=== PATIENT | female | born 1965 | race Caucasian/White ===

== ENCOUNTER 2017-03-28 06:03 | Day surgery (SDC) | payer MEDICARE, MEDICAID ==
[~2017-03-28] VITALS: Ht 162.6 cm; Wt 116.3 kg
[~2017-03-28 06:03] MED LIST: FLUO40CA49 PO; LEVO75TA10 PO; PALI546S SQ; ZIPR20CA26 PO; ZIPR40CA27 PO
[2017-03-28 06:15] VITALS: Ht 162.6 cm; Wt 116.3 kg
[2017-03-28 06:22] VITALS: BP 142/87; PULSE 102; RESP 16; TEMP 97.7; O2SAT 95
--- NOTE | 2017-03-28 06:57 | ANESPREOP ---
Anesthesia Record Date and Time DATE: 03/28/17 TIME: 06:56 Pre-Op Diagnosis Screening Proposed Surgical Procedure COLONOSCOPY NPO since: Midnight Allergies: Coded Allergies: No Known Allergies (Unverified , 03/28/17) Ht/Wt/BMI Height: 5 ' 4.00 " Weight: 116.300 kg BMI: 44.0 kg/m2 Vital Signs Date Time Temp Pulse Resp B/P Pulse Ox O2 Delivery O2 Flow Rate FiO2 03/28/17 06:22 97.7 102 16 142/87 95 Room Air Medications Inpatient Medications Current Medications Medications (Trade) Dose Ordered Sig/Aleida Start Time Stop Time Status Last Admin Dose Admin Lactated Ringer's (Lactated Ringers) 1,000 ml @ 30 mls/hr Q24H 03/28/17 07:00 03/28/17 06:40 30 MLS/HR Fluoxetine HCl (Fluoxetine HCl) 40 Mg Capsule, 1 CAP PO HS, (Reported) Last Taken: on 03/26/172099 Levothyroxine Sodium (Levothyroxine Sodium) 75 Mcg Tablet, 1 TAB PO DAILY, (Reported) Last Taken: on 03/28/17 0500 Paliperidone Palmitate (Invega Trinza) 546 Mg/ 1.75 Ml Syringe, 1 UNIT SQ Q3M, (Reported) Last Taken: on 03/21/17 Ziprasidone HCl (Ziprasidone HCl) 40 Mg Capsule, 1 CAP PO DAILY, (Reported) Last Taken: on 03/28/17 0500 Ziprasidone HCl (Ziprasidone HCl) 20 Mg Capsule , 1 CAP PO HS, (Reported) Last Taken: on 03/26/172099 Currently on Beta Tamara: No Medical/Surgical History Anesthesia PMH: Reports: *Diabetes, Arthritis, Obesity (Morbid), Reflux, Thyroid Disease, Denies: Anesthesia Reactions (NO AIRWAY ISSUES), Cancer, Clotting Problems, Glaucoma, Malignant Hyperthermia, Renal Disease, Sleep Apnea Smoking Status: Never smoker Has pt. smoked today?: No Use Chewing Tobacco?: No Second Hand Exposure: No Substance Use Type: does not use Alcohol Intake: none HX of Last Menstrual Period: FEBRUARY 2017 Past Surgical History Orthopedic Surgeries: Abdominal Surgeries: Genitourinary Surgeries: Cardiac Surgeries: Endocrine Surgeries: Reproductive Surgeries: Neurological Surgeries: Ear Surgeries: Nose Surgeries: Throat Surgeries: Other Surgeries: Yes - COLONOSCOPY,ORTHODONIC JAW PROCEDURE Anesthesia Adverse Reactions: FOUND none Family Hx of Anesthesia Advers: none Hx of Motion Sickness: No Pertinent Findings Test 03/28/17 06:20 Urine Test Negative (NEGATIVE) EKG Rhythm: Sinus Rhythm Physical Exam Respiratory: Lungs clear Cardiovascular: FOUND Regular rate, rhythm Airway Assessment Mallampati Score: II TMD: 3 Fingerbreadths Neck Extension: Fair Overall Assessment: May Be Diff Mask Vent., May Be Diff Intubation ASA: 3 Plan Anesthesia Plan: TIVA Discussion Discussed risks/options/alternatives of anesthesia and questions answered. Patient consents. Nursing pain assessment noted. Present: Family Member Attestation Statement Prior to the delivery of any anesthetic medication, I examined the patient, developed the plan, obtained the patient's consent and discussed the risk and benefits of the procedure with the patient/guardian. GREGORY DOMINGUEZ REFRIGERATION OPERATOR March 28, 2017 06:57
[2017-03-28] MEDS ORDERED: LIDOCAINE 1% (10mg/ml) 2ml SDV INJ ONE (07:00)
[2017-03-28] MEDS ORDERED: LR 1,000 ML IV SCH (07:00)
[2017-03-28] MEDS ORDERED: PROPOFOL 500mg 50 ML IV ONE (07:08)
[2017-03-28] MEDS ORDERED: PROPOFOL 200mg 20 ML IV ONE (07:09)
[2017-03-28 08:38] VITALS: BP 94/52; PULSE 63; RESP 18; TEMP 97.3; O2SAT 95
[2017-03-28 08:50] VITALS: BP 104/65; PULSE 72; RESP 22; O2SAT 99
[2017-03-28 08:52] VITALS: O2SAT 96
--- NOTE | 2017-03-28 08:59 | ANESPO ---
Post-Op Note Date 03/28/17 Time: 08:58 Status Pt Participated in Evaluation: Pt participated in person Vital Signs Date Time Temp Pulse Resp B/P Pulse Ox O2 Delivery O2 Flow Rate FiO2 03/28/17 08:38 97.3 63 18 94/52 95 Mask 5.00 Respiratory Function: Airway patent Cardiovascular Function: Regular pulse Mental Status: Alert/oriented Pain Level Intensity: 0 Hydration: Taking po fluids Complications during Recovery None apparent Follow-Up Instructions Instructions Per Surgeon GEE WALKER CRNA March 28, 2017 08:59
[2017-03-28 09:05] VITALS: BP 104/56; PULSE 82; RESP 20; O2SAT 96
[2017-03-28 09:20] VITALS: BP 98/52; PULSE 80; RESP 22; O2SAT 96
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
--- OUTSIDE RECORDS SUMMARY | 2017-03-28 09:40 | XMS REPORT | Continuity of Care Document ---
Author Author [facility] Organization [facility] Address Unknown Phone Unavailable Allergies Medications Problems Procedures Results Encounters ACCT No. Visit Date/Time Discharge Status Pt. Type Provider Facility Loc./Unit Complaint [id number] 01/14/2014 13:33:00 01/14/2014 23 :59:59 CLS Outpatient
--- OUTSIDE RECORDS SUMMARY | 2017-03-28 09:40 | XMS REPORT | Referral Summary ---
Author Author [facility] Organization [facility] Address Unknown Phone Unavailable Care Team Providers Care Customer Relationship Specialist Name Role Phone Chandra Waters Primary Care Physician [phone] Encounter VC Date(s): 04/22/15 - 04/22/15 [facility], [address] [place] [address]- Discharge Diagnosis: Sinusitis Discharge Diagnosis: Allergic rhinitis Discharge Disposition: 01-Home or Self Care Attending Physician: Carmen Dowd APRN Admitting Physician: Carmen Dowd APRN Vital Signs Most recent to 1 oldest [Reference Range]: Temperature Tympanic 36.7 degC [36.6-38.1 degC] (04/22/15 9:58 AM) Peripheral Pulse 78 bpm Rate [60-100 bpm] (04/22/15 9:58 AM) Respiratory Rate 17 br/min [14-20 br/min] (04/22/15 9:58 AM) Blood Pressure 118/80 mmHg [90-140/60-90 mmHg] (04/22/15 9:58 AM) Problem List Condition Effective Dates Status Health [...] EVERY DAY Start Date: 12/14/14 Status: Ordered Synthroid 50 mcg (0.05 mg) oral tablet 50 mcg 1 tabs, Oral, Daily, # 30 tabs, 2 Refill(s), Pharmacy: [facility] [place], 1 tabs Oral Daily Start Date: 10/10/15 Status: Ordered Results No data available for this section Immunizations Vaccine Date Refusal Reason tetanus/diphth/pertuss (Tdap) adult/adol 05/24/08 influenza virus vaccine, inactivated 10/03/15 influenza virus vaccine, inactivated 10/28/14 Procedures Procedure Date Related Diagnosis Body Site Colonoscopies Surgery-gall bladder Social History Social History Type Response Smoking Status Never smoker Assessment and Plan Extracted from: Title: Ambulatory Patient Education Author: Carmen Dowd APRN Date : 04/22/15 Allergy Allergic Rhinitis Allergic rhinitis is when the mucous membranes in the nose respond to allergens. Allergens are particles in the air that cause your body to have an allergic reaction. This causes you to release allergic antibodies. Through a chain of events, these eventually cause you to release histamine into the blood stream. Although meant to protect the body, it is this release of histamine that causes your discomfort, such as frequent sneezing, congestion, and an itchy , runny nose. CAUSES Seasonal allergic rhinitis (hay fever ) is caused by pollen allergens that may come from grasses, trees, and weeds. Year-round allergic rhinitis (perennial allergic rhinitis ) is caused by allergens such as house dust mites, pet dander , and mold spores. SYMPTOMS Nasal stuffiness (congestion ). Itchy, runny nose with sneezing and tearing of the eyes. DIAGNOSIS Your health care provider can help you determine the allergen or allergens that trigger your symptoms. If you and your health care provider are unable to determine the allergen, skin or blood testing may be used. TREATMENT Allergic Rhinitis does not have a cure, but it can be controlled by: Medicines and allergy shots (immunotherapy ). Avoiding the allergen. Hay fever may often be treated with antihistamines in pill or nasal spray forms. Antihistamines block the effects of histamine. There are over-the- counter medicines that may help with nasal congestion and swelling around the eyes. Check with your health care provider before taking or giving this medicine. If avoiding the allergen or the medicine prescribed do not work, there are many new medicines your health care provider can prescribe. Stronger medicine may be used if initial measures are ineffective. Desensitizing injections can be used if medicine and avoidance does not work. Desensitization is when a patient is given ongoing shots until the body becomes less sensitive to the allergen. Make sure you follow up with your health care provider if problems continue. HOME CARE INSTRUCTIONS It is not possible to completely avoid allergens, but you can reduce your symptoms by taking steps to limit your exposure to them. It helps to know exactly what you are allergic to so that you can avoid your specific triggers. SEEK MEDICAL CARE IF: You have a fever. You develop a cough that does not stop easily (persistent ). You have shortness of breath. You start wheezing. Symptoms interfere with normal daily activities. Document Released: 08/06/2002 Document Revised: 2014 Document Reviewed: [facility] Patient Information 2014 [employer] [facility]. No follow up information was provided. Extracted from: Title: Office Visit Note Author: Carmen Dowd APRN Date: 04/22/15 Assessment/Plan 1.Sinusitis amox. mucinex dm as needed, push fluids, nasal rinses. 2.Allergic rhinitis zyrtec daily as needed. Orders: amoxicillin, 500 mg 1 tabs, Oral, TID, X 10 days, # 30 tabs, 0 Refill( s), Pharmacy: [id number], 1 tabs Oral TID,x10 days
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
--- OUTSIDE RECORDS SUMMARY | 2017-03-28 09:40 | XMS REPORT | Referral Summary ---
Author Author [facility] Organization [facility] [place] Address Unknown Phone Unavailable Care Team Providers Care Flight Engineer Name Role Phone Chandra Waters Primary Care Physician [phone] Encounter VC Date(s): 11/15/15 - 11/15/15 [facility], [address] [place] [id number] Discharge Disposition: 01-Home or Self Care Attending Physician: Nikolas Avila APRN Admitting Physician: Nikolas Avila APRN Vital Signs Most recent to 1 oldest [Reference Range]: Peripheral Pulse 76 bpm Rate [60-100 bpm] (11/15/15 2:26 PM) Respiratory Rate 18 br/min [14-20 br/min] (11/15/15 2:26 PM) Blood Pressure 130/84 mmHg [90-140/60-90 mmHg] (11/15/15 2:26 PM) SpO2 98 % (11/15/15 2:26 PM) Problem List Condition Effective Dates Status [...] 0 Refill(s) Start Date: 01/24/15 Status: Ordered ranitidine 150 mg oral tablet 150 mg 1 tabs, Oral, BID, Come in for lab work 4-6 weeks from now., # 60 tabs, 0 Refill(s), Pharmacy: [facility], 1 tabs Oral BID,Instr :Come in for lab work 4-6 weeks from now. Start Date: 11/15/15 Status: Ordered Synthroid 50 mcg (0.05 mg) oral tablet 50 mcg 1 tabs, Oral, Daily, # 30 tabs, 2 Refill(s), Pharmacy: [facility], 1 tabs Oral Daily Start Date: 10/10/15 Status: Ordered Results No data available for this section Immunizations Vaccine Date Refusal Reason tetanus/diphth/pertuss (Tdap) adult/adol 05/24/08 influenza virus vaccine, inactivated 10/03/15 influenza virus vaccine, inactivated 10/28/14 Procedures Procedure Date Related Diagnosis Body Site Colonoscopies Surgery-gall bladder Social History Social History Type Response Smoking Status Never smoker Assessment and Plan No data available for this section
--- OUTSIDE RECORDS SUMMARY | 2017-03-28 09:40 | XMS REPORT | Continuity of Care Document ---
Author Author Jayshree Becker MD [facility] Ambulatory Address [address] [place] [address] [place] [address] Phone Care Team Providers Care Engraver Seals Name Role Phone Jayshree Becker PP Unavailable Payers Payer name Insurance type Covered constitution party ID Authorization(s) Unknown Problems Condition Effective Dates (start - stop) Clinical Status Gynecological Examination - *Chronic Bacterial vaginosis - *Acute Abnormal bleeding in menstrual cycle - *Acute Cerumen impaction - *Chronic Vaginal bleeding, abnormal - *Acute Verrucous keratosis - *Chronic Postmenopausal bleeding - Mild Unspecified symptom associated with female genital organs - Mild Postmenopausal bleeding - *Resolved Chronic endometritis - Irregular menstrual cycle - *Stable Status post endometrial ablation - *Fair Control Excessive or frequent menstruation - *Stable Family History Family Member Diagnosis Age At Onset Status Father (Unknown) Cancer - skin Yes Social History Social History Element Description Quantity Unknown Allergies, Adverse Reactions, Alerts Substance Reaction Severity Status Unknown Medications Medication Instructions Dosage Effective Dates (start - stop) Status Risperdal 2 mg tablet take 1 tablet (2MG) by oral route every day 2 MG Jan - Active Geodon 20 mg capsule take 1 capsule (20MG) by oral route 2 times every day with food 20 MG - Active fluoxetine 20 mg capsule take 2 capsule (40MG) by oral route every day in the morning 40 MG - Active Protonix 40 mg tablet,delayed release Take 1 tablet by mouth every day. - Active INVEGA SUSTENNA (unknown strength) inject 0.25 milliliter by intramuscular route every month - Active Immunizations Vaccine Date Status Comments Tdap (Adacel ) completed - Completed reason: source unspecified Results Test Name Date and Time Measure Units Reference Range Abnormal Flag Comments Panel Description: Hanging Drop Site. 14:00:00 Cervical WBC-M 14:00:00 0-2 /hpf 0-5 Squamous Epithelial Cells 14:00:00 10-20 /lpf Clue Cells 14:00:00 <10 %/epis None seen-20 Yeast 14:00:00 None seen /hpf None seen Trichomonas 14:00:00 None seen /hpf None seen Bacteria 14:00:00 1+ Panel Description: Chlamydia & GC by Amplified DNA-[facility] Chlam/ GC Nucleic Acid Screen 14:00:00 Source: Cervix Collected: 01/14/14 14:00 Site: Received : 01/14/14 17:00 Order#: [id number] is the Site? : CXVChlamydia trachomatis, Amplified NA FINAL 01/15/14 11:11 Not detectedNeisseria gonorrhoeae, Amplified NA FINAL 01/15/14 11:11 Not detectedKEY FOR RESULTS: * - NEW RESULT - RESULT WAS MODIFIED AFTER FINAL STATUS SETPerform at [facility] Reference Lab [address] [facility] [address] Surgical Device Sales Representative Fredo Mireles MD Vital Signs Date / Time: Height Weight Pulse Rate Blood Pressure Temperature /13:33:00 63.50 in 256.20 lbs 78 /min 124/78 mm[Hg] 97.9 F Procedures Procedure Date Unknown Encounters Encounter Location Date Patient Visit [facility] Patient Visit [facility] Patient Visit [facility] Patient Visit [facility] Patient Visit [facility] Patient Visit [facility] Derm Patient Visit [facility] Patient Visit [facility] Patient Visit [facility] Patient Visit [facility] Patient Visit [facility] Advance Directives Directive Effective Date Unknown
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
--- NOTE | 2017-03-28 17:45 | OPNOTEF ---
DATE OF SERVICE 03/28/2017 SURGEON Sven Albright MD PREOPERATIVE DIAGNOSIS Colorectal cancer surveillance POSTOPERATIVE DIAGNOSIS Multiple colonic polyps located at 30 cm, 40 cm x 3, 50 cm, 45 cm x 2, 70 cm, 75 cm, 80 cm x 3, 100 cm, hepatic flexure x 3, and cecum. PROCEDURE Colonoscopy with multiple polypectomies via cold biopsy technique and snare polypectomy technique. ANESTHESIA TIVA BRIEF HISTORY/INDICATIONS Mrs. Mcgovern is a 51-year-old female who presents today to [facility] to undergo colonoscopy to serve as a portion of her overall colorectal cancer surveillance. FINDINGS Upon colonoscopy there was no evidence for angiodysplastic lesions, diverticula or blanche malignancies. The patient was found to have numerous polyps throughout the entire colon which will be described below. Each polyp was able to be removed in its entirety endoscopically. DESCRIPTION OF PROCEDURE After informed consent was obtained the patient was brought to the endoscopy suite and placed on the table in left lateral decubitus position. Formal timeout was then completed. Next, a digital rectal exam was performed. Normal sphincter tone. No rectal masses were appreciated. An Olympus colonoscope was inserted into the anus. The scope was then advanced under direct visualization of the lumen. There were multiple times that several polyps were identified and snared and suctioned against the colonoscope and the scope was withdrawn out through the anal verge and then readvanced. For simplicity purposes it will be described as if the scope was advanced and slowly withdrawn a single time. In actuality, the scope was likely inserted and removed and reinserted perhaps 10 times or more. The scope was continued to be advanced under direct visualization of the lumen at all times until the cecum was ascertained. Within the cecum the patient was found to have a polyp on the order of about 5-6 mm in diameter which was removed in its entirety via cold biopsy technique. The scope was drawn back to the hepatic flexure where the patient was found to have three polyps that were removed in their entirety via cold biopsy technique and snare polypectomy technique. These polyps ranged on the order of about 5 mm up to 1 cm in dimension. The scope was then withdrawn back to 100 cm where a pedunculated polyp that was on the order of about 1.5 cm was removed in its entirety via snare polypectomy technique. The scope was drawn back to 70 cm from the anal verge where three different/synchronous polyps were identified that ranged on the order of about 5 mm up to 1.5 cm once again. Each polyp was removed in its entirety either via cold biopsy technique or snare polypectomy technique. The scope was continued to be withdrawn back to 75 cm where a larger polyp on the order of about 1.5 cm, which was pedunculated in nature, was also removed in its entirety via snare polypectomy technique. At 70 cm from the anal verge the patient was also found to have a polyp on the order of about 2 cm in diameter which was pedunculated in nature and removed in its entirety via snare polypectomy technique. At 45 cm from the anal verge the patient was found to have two diminutive-appearing colonic polyps that were on the order of about 5-6 mm in diameter and removed in their entirety via cold biopsy technique. At 50 cm from the anal verge the patient was also found to have a polyp that was removed in its entirety via cold biopsy technique which was on the order of 5-6 mm in diameter. At 40 cm from the anal verge the patient was found to have three polyps that also ranged on the order of about 1.5 cm in diameter down to 5 mm. These polyps were also all removed in their entirety via cold biopsy technique or snare polypectomy technique. Lastly, a polyp that was also pedunculated and on a stalk was identified at 30 cm from the anal verge that was on the order of about 1.5 cm in diameter which was removed via snare polypectomy technique. A total of 10 separate formalin containers were submitted. The scope was withdrawn until it was back in the rectal vault. J-maneuver was performed. No worrisome perianal pathology was noted. Scope was allowed to straighten and was withdrawn through the anal verge. Patient tolerated the procedure without difficulty and was sent back to the preop area in stable condition. Await biopsy results from today's multiple polypectomies. The patient will likely need a repeat colonoscopy at a one-year interval given the number of colon polyps that were discovered today which I believe will be mostly adenomatous in nature upon final pathology. DIANE
== END 2017-03-28 09:26 | disposition home or self-care (01) ==
LOC: SCU 06:03
PROVIDERS: ATTEND Surgery
DX: Z12.11 Encounter for screening for malignant neoplasm of colon (principal); D12.3 Benign neoplasm of transverse colon; D12.0 Benign neoplasm of cecum; D12.6 Benign neoplasm of colon, unspecified; K21.9 Gastro-esophageal reflux disease without esophagitis; E03.9 Hypothyroidism, unspecified; J30.9 Allergic rhinitis, unspecified; Z79.899 Other long term (current) drug therapy
CPT/HCPCS: 45380; 45385; 81025; 82948; J2704; J7120; 88305

== ENCOUNTER 2018-07-12 07:20 | Inpatient (IN) ==
[2018-07-12] MEDS ORDERED: ALBUTEROL/IPRATROPIUM 2.5mg-0.5mg/3ml NEB AEROSOL ONE (07:28)
[2018-07-12] MEDS ORDERED: NS 1,000 ML IV ONE (07:37)
[2018-07-12] MEDS ORDERED: CEFTRIAXONE 1 G INJECTION IM SCH (07:45)
--- OUTSIDE RECORDS SUMMARY | 2018-07-12 07:50 | External Medical Summary | Continuity of Care Document ---
:1965 Author Organization [facility] Allergies Active Description Code Type Severity Reaction Onset Reported/ Identified Relationship Clinical to Patient Status Yes No Known NKMA N/A N/A 01/24/2015 Medication Allergies Yes No Known Aller Unknown N/A 03/28/2017 Allergies gy Yes No Known No Aller N/A N/A 03/28/2017 Allergies Known gy Aller gies Medications Medication Packaging Start Stop Route Dosage Sig Date Date 2 caps Oral 40 mg FLUoxetine(FLUoxet 5 40 mg=2 ine 20 mg oral caps, capsule) Oral, Daily, in the morning, 0 Refill(s) 1 caps Oral 20 mg ziprasidone(Geodon 5 See 20 mg oral Instructio capsule) ns, Take 20mg qAM and 40mg qPM, 0 Refill(s) 1 tabs 10/03/20 Oral 2 mg risperiDONE(Risper 5 15 1 tabs, MARLENA 2 mg oral Oral, tablet) Daily, 60 tabs 1 tabs 05/02/20 Oral 500 mg amoxicillin(amoxic 5 15 500 mg=1 illin 500 mg oral tabs, tablet) Oral, TID, for 10 days, 30 tabs, 0 Refill(s) 0.5 mL 10/03/20 IntraMuscular influenza virus 5 15 0.5 mL, vaccine, IntraMuscu inactivated(influe lar, Once nza virus vaccine, inactivated) 1 tabs 10/15/20 Oral 150 mg ranitidine(ranitid 5 16 150 mg=1 ine 150 mg oral tabs, tablet) Oral, BID, Come in for lab work 4-6 weeks from now., 60 tabs, 0 Refill(s) 1 tabs 03/25/20 Oral amoxicillin-clavul 6 16 1 tabs, anate(Augmentin Oral, 875 mg-125 mg oral q12hr, for tablet) 10 days, 20 tabs, 0 Refill(s) 3 mL 10/16/20 NEB levalbuterol(leval 6 16 3 mL, buterol 1.25 mg/3 NEB, TID mL inhalation solution) 1 puffs 03/04/20 Inhalation albuterol(albutero 6 17 1 puffs, l [facility]FC free 90 Inhalation mcg/inh inhalation , QID, aerosol) PRN: as needed for wheezing, 18 g, 0 Refill(s) 1 tabs 06/25/20 Oral 75 mcg levothyroxine(levo 6 17 75 mcg=1 thyroxine 75 mcg tabs, (0.075 mg) oral Oral, tablet) Daily, 30 tabs, 3 Refill(s) Invega SQ 546 Trinza 7 mg/1.75 ml Q3M PO 40 mg Ziprasidone HCl 7 DAILY PO 20 mg Ziprasidone HCl 7 HS PO 75 mcg Levothyroxine 7 DAILY Sodium PO 40 mg Fluoxetine HCl 7 HS levothyroxine(levo 7 See thyroxine 75 mcg Instructio (0.075 mg) oral ns, TAKE 1 tablet) TABLET BY MOUTH DAILY, 30 tabs Problems Date Dx Attending Type Code Diagnosis Diagnosed By Coded 10/15/2016 Zurdo Harris Final J06.9 Acute upper respiratory E infection, unspecified 10/24/2016 Quyen Waters Final E03.9 Hypothyroidism, unspecified 10/24/2016 Quyen Waters Final E78.1 Pure hyperglyceridemia 10/24/2016 Quyen Waters Final H61.23 Impacted cerumen, bilateral 02/25/2017 Quyen Waters Final E03.9 Hypothyroidism, unspecified 02/25/2017 Quyen Waters Final Z00.00 Encounter for general adult medical examination without abnormal findings 03/28/2017 NIRALI VILLEGAS, 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 03/28/2017 NIRALI VILLEGAS, D12.3 BENIGN NEOPLASM OF KATHARINA Andres [employer] [facility] S TRANSVERSE COLON 03/28/2017 NIRAIL VILLEGAS, D12.6 BENIGN NEOPLASM OF KATHARINA Andres [employer] ([employer] S COLON, UNSPECIFIED 03/28/2017 NIRALI VILLEGAS, E03.9 HYPOTHYROIDISM, KATHARINA Andres FACS CWS UNSPECIFIED 03/28/2017 NIRALI VILLEGAS, J30.9 ALLERGIC RHINITIS, KATHARINA Andres FACS CWS UNSPECIFIED 03/28/2017 NIRALI VILLEGAS, K21.9 GASTRO-ESOPHAGEAL KATHARINA Andres FACS [facility] REFLUX DISEASE WITHOUT ESOPHAGITIS 03/28/2017 NIRALI VILLEGAS, Z12.11 ENCOUNTER FOR SCREENING KATHARINA Andres FACS [facility] FOR MALIGNANT NEOPLASM OF COLON 03/28/2017 NIRALI VILLEGAS, 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) DRUG THERAPY 06/06/2018 NIARLI VILLEGAS, Z86.010 Personal history of NIRALI VILLEGAS KATHARINA Andres FACS [facility] colonic polyps KATHARINA DONALDSONS Procedures Code Description [place] [address] Pressurized or 10/15/2016 nonpressurized inhalation treatment for acute airway obstruction for therapeutic purposes and/or for diagnostic purposes such as sputum induction with an aerosol generator, [place] [address] Office or 10/15/2016 other outpatient visit for the evaluation and management of an established patient, which requires at least 2 of these 3 howard components: A detailed history; A detailed examination; Medical d 57315 Office or 10/24/2016 other outpatient visit for the evaluation and management of an established patient, which requires at least 2 of these 3 howard components: A detailed history; A detailed examination; Medical d 30345 Periodic 02/25/2017 comprehensive preventive medicine reevaluation and management of an individual including an age and gender appropriate history, examination, counseling/anticipatory guidance/risk factor reduc 31300 Screening 06/28/2017 digital breast tomosynthesis, bilateral (List separately in addition to code for primary procedure) 58005 Screening 06/28/2017 mammography, bilateral (2-view study of each breas [id number] Diagnostic 08/02/2017 mammography, including computer-aided detection ( Results Test Result Range L200.0020 - 07/20/16 08:58 ICTERUS < 2 0-7 HEMOLYSIS < 15 0-25 L200.6775 - 07/20/16 08:58 HEMOGLOBIN A1C 6.4 % 6.1-7.9 L100.0050 - 07/20/16 08:58 WBC - WHITE BLOOD COUNT 8.2 T/MM3 4.5-11.0 RED BLOOD COUNT 5.55 M/MM3 4.00-5.20 HGB - HEMOGLOBIN 12.0 GM/DL 12-16 HCT - HEMATOCRIT 37.2 % 36-46 MEAN CORPUSCULAR VOLUME 67.0 UM3 80-100 MEAN CORPUSCULAR HGB 21.6 UUG 26-34 MEAN CORPUSCULAR HGB CONC(MCHC 32.3 GM/DL 31-37 RDW STANDARD DEVIATION 41.0 FL 36.9-50.2 PLT - PLATELET COUNT 285 T/MM3 130-400 MEAN PLATELET VOLUME 11.4 UM3 9.4-12.4 L100.0105 - 07/20/16 08:58 NEUTROPHILS % (MANUAL) 65.0 % 33-66 LYMPHOCYTES % (MANUAL) 29.0 % 23-45 MONOCYTES % (MANUAL) 3.0 % 0-9.0 EOSINOPHILS % (MANUAL) 3.0 % 0-4 NEUTROPHILS # (MANUAL) 5.3 T/MM3 1.8-7.7 LYMPHOCYTES # (MANUAL) 2.4 T/MM3 1-4.8 MONOCYTES # (MANUAL) 0.2 T/MM3 0-0.8 EOSINOPHILS # (MANUAL) 0.2 T/MM3 0-0.5 RBC MORPHOLOGY NORMAL L200.3850 - 07/20/16 08:58 THYROID STIM HORMONE-TSH 3.43 MIU/L 0.47-4.68 L200.3600 - 07/20/16 08:58 FREE T4 (FREE THYROXINE) 1.15 NG/DL 0.78-2.19 L200.1350 - 07/20/16 08:58 CHOLESTEROL 191 MG/DL 132-199 TRIGLYCERIDES 235 MG/DL 35-135 HDL CHOLESTEROL, DIRECT 48 MG/DL 40-60 LDL CHOLESTEROL,CALCULATED 96.0 66-159 VLDL CHOLESTEROL 47.0 MG/DL 0-28 RISK FACTOR 4.0 RATIO 0-4.0 L600.2900 - 03/28/17 06:20 PREG QUAL, URINE TEST NEGATIVE NEGATIVE L900.0530 - 03/28/17 06:38 GLUCOMETER 103 mg/dL 65-110 Encounters ACCT No. Visit Discharge Status Pt. Type Provider Facility Loc./Unit Complaint Date/Time [id number] 01/14/2014 01/14/2014 CLS Outpatien 13:33:00 23:59:59 t [id number] 08/02/2017 08/02/2017 DIS Outpatien Evelin, [facility] abnormal 14 12:49:00 23:59:00 t Quyen [facility]andra [facility] [id number] 06/28/2017 06/28/2017 DIS Outpatien Evelin, [facility] SCREENING 14 14:27:00 23:59:00 t Quyen [facility]andra [facility] [id number] 02/25/2017 02/25/2017 DIS Outpatien Evelin, [facility] physical 05 10:06:00 23:59:00 t Quyen [facility]andra [facility] [id number] 10/24/2016 10/24/2016 DIS Outpatien Evelin, [facility] TCPA, 19 13:49:00 23:59:00 t Quyen Huerta Discuss Clinic labwork [id number] 10/15/2016 10/15/2016 DIS Outpatien Komarek, [facility] COUGH AND 91 12:58:00 23:59:00 t Zurdo Huerta RUNNY NOSE Clinic [id number] 03/15/2016 03/15/2016 DIS Outpatien Avila, [facility] sinus 25 10:59:00 23:59:00 t Nikolas Huerta infection Clinic sx last 4 days [id number] 11/15/2015 11/15/2015 CLS Outpatien Avila, [facility] ACID 09 14:17:00 23:59:59 t Nikolas Huerta REFLUX Clinic [id number] 10/03/2015 10/03/2015 DIS Outpatien Evelin, [facility] DISCUSS 33 15:28:00 23:59:00 hermila Huerta LAB Clinic RESULTS [id number] 06/26/2017 Document 1723 05:17:23 Registrat ion [id number] 10/25/2016 Document 1635 05:16:35 Registrat ion [id number] 10/16/2016 Document 1623 05:16:23 Registrat ion [id number] 03/16/2016 Document 1712 05:17:12 Registrat ion [id number] 11/16/2015 Document 1643 05:16:43 Registrat ion [id number] 10/04/2015 Document 1747 05:17:47 Registrat ion [id number] 09/14/2015 Document 3011 12:30:11 Registrat ion [id number] 09/14/2015 Document 2847 11:28:47 Registrat ion [id number] 06/06/2018 06/06/2018 NEIL Galan CSCOPE , 80 09:17:00 23:59:00 KATHARINA cleaning MD Surgical GERD SOB FACS [facility] [id number] 03/28/2017 03/28/2017 NEIL Galan SCU 19 06:03:00 09:26:00 KATHARINA cleaning MD Medical FACS [facility] [id number] 07/20/2016 07/20/2016 REINALDO LANGFORD MD, [facility] 04 08:48:00 23:59:59 t [facility] [id number] 06/20/2018 Document 98 10:46:00 Registrat ion
[2018-07-12] MEDS ORDERED: CEFTRIAXONE 1 GM IV ONE (08:00)
--- NOTE | 2018-07-12 08:29 | Emergency Department Report ---
SOB HPI - General Chief Complaint: Shortness of Breath/Dyspnea Stated Complaint: SOA Time Seen by Provider: 07/12/18 07:27 Source: patient, EMS Mode of arrival: EMS - History of Present Illness 52 YO WF who presents to ER for shortness of breath. EMS reports initial O2 sats on room air in 70's. They provided breathing treatments with albuterol x 2. EMS also administered Solu-Medrol 125 mg IV. Patient remains very dyspneic with room air O2 sats 84-86% Patient recently ill with upper respiratory infection. She denies history of COPD, asthma. Complaint: shortness of breath, cough Onset (ago): day(s) (3) Context: recent illness Severity: severe (this morning) Associated symptoms: cough Treatment prior to arrival: bronchodilator (albuterol treatments x 2 (EMS)), other (solu-medrol IV (EMS)) - Related Data Home oxygen amount: none Home Medications Medication Instructions Recorded Confirmed Levothyroxine Sodium 1 tab PO DAILY #30 03/27/17 07/12/18 Fluoxetine HCl [Prozac] 40 cap PO HS 07/12/18 07/12/18 Paliperidone Palmitate [Invega 1 syringe Q90D 07/12/18 07/12/18 Trinza] Ziprasidone HCl [Geodon] 20 mg PO DAILY 07/12/18 07/12/18 Ziprasidone HCl [Geodon] 40 mg PO HS 07/12/18 07/12/18 Allergies Allergy/AdvReac Type Severity Reaction Status Date / Time No Known Allergies Allergy Unverified 03/28/17 06:23 Review of Systems Constitutional: Reports: fever, chills Eyes: Denies: eye discharge, vision change ENT: Denies: ear pain, throat pain, dental pain Cardiovascular: Reports: dyspnea on exertion. Denies: chest pain Respiratory: Reports: cough, dyspnea, wheezes Gastrointestinal: Reports: nausea. Denies: abdominal pain, vomiting, diarrhea Genitourinary: Denies: urgency, dysuria, frequency, hematuria Psychiatric: Reports: anxiety Allergic/Immunologic: Denies: urticaria, itchy eyes PFSH Patient Stated Medical History Gastroesophageal Reflux Yes Disease Other Musculoskeletal Yes: ARTHRITIS [facility] Medical History (Last Updated 07/12/18 @ 11:24 by Colleen Roberts MD) Schizoaffective disorder (Chronic Medical) Anxiety (Chronic Medical) History of adenomatous polyp of colon (Chronic Medical) Thyroid disease (Chronic Medical) GERD (gastroesophageal reflux disease) (Chronic Medical) Arthritis (Chronic Medical) Surgical History: Cholecystectomy. -colonoscopy 10 adenomatous polyps 03/28/2017 Family History: Family History (Last Updated 04/29/18 @ 12:03 by Antoinette Caldera [facility]) Father Diabetes Brother Diabetes - Social History Smoking status: Never smoker Alcohol intake frequency: does not drink Current residence: Apartment/Private Home Physical Exam - Limitations Limitations: no limitations - General General appearance: alert, in distress - Normal Exams: Head:: Normocephalic without trauma Eyes:: Pupils are PERRLA w/ EOMI ENMT:: No facial trauma Cardiovascular:: Regular rate and rhythm, without murmur or gallop, Pulses 2+ all extremities, capillary refill, <2 seconds all extremities Abdomen:: Bowel sounds positive, soft, non-tender, non-distended Neurological:: Patient is alert, and oriented, cranial nerves, motor/sensory/ cerebellar, exams w/o gross deficits, to observation - Respiratory Respiratory exam: Present: wheezes, accessory muscle use, prolonged expiratory phase, crackles (bilaterally in bases) - Expanded Respiratory Exam Location: Left: wheezes, rhonchi, decreased breath sounds, Right: wheezes, decreased breath sounds, Upper: wheezes, Lower: wheezes, rhonchi, decreased breath sounds Course Course Narrative: Upon arrival, RT notified and duoneb treatment initiated. Room air O2 sat 78%. Breathing labored and tachypneic. BiPAP ordered. 0821: Lab called to notify of Troponin 0.15, BNP 10,200, BUN 56 0830: Patient tolerating BiPAP well. O2 sat 98% WITH FiO2 50%. 0904: Lab called ED notified of mycoplasma positive (cold agglutinins) - Consultations Consultation #1: [id number]: HOSPITALIST PAGED. [id number]: DR. REYES RESPONDS TO PAGE BUT DR. ROBERTS ACCEPTING NEW ER ADMISSIONS. DR. REYES WILL NOTIFY DR. ROBERTS [phone]: DR. ROBERTS CALLS ER. DISCUSSED CASE. WILL ADMIT PATIENT TO CCU. 0904: LAB CONTACT ED PHYSICIAN TO NOTIFY POSITIVE MYCOPLASMA Vital Signs Temperature 96.7 F L 07/12/18 07:20 Pulse Rate 96 07/12/18 07:20 Respiratory Rate 46 H 07/12/18 07:20 Blood Pressure 139/73 07/12/18 07:20 Pulse Oximetry 67 L 07/12/18 07:20 Temperature 98.1 F 07/12/18 09:46 Pulse Rate 94 07/12/18 12:00 Respiratory Rate 32 H 07/12/18 15:30 Blood Pressure 142/74 H 07/12/18 09:00 Pulse Oximetry 94 07/12/18 15:30 Shortness of Breath/Dyspnea - Differential Diagnosis Likely: congestive heart failure, community acquired pneumonia, asthma with exacerbation - Lab Data Attestation: I reviewed the patient's lab results. RESPIRATORY PANEL POSITIVE FOR MYCOPLASMA Result diagrams: 07/12/18 07:47 07/12/18 07:47 Lab Results 07/12/18 07/12/18 07/12/18 Range/Units 07:33 07:37 07:42 WBC (4.5-11.0) T/MM3 RBC (4.00-5.20) M/MM3 Hgb (12-16) GM/DL Hct (36-46) % MCV (80-100) UM3 MCH (26-34) UUG MCHC (31-37) GM/DL RDW Std Deviation (36.9-50.2) FL Plt Count (130-400) T/MM3 MPV (9.4-12.4) UM3 Immature Gran % (Auto) Neut % (Auto) Lymph % (Auto) [place] % (Auto) Eos % (Auto) Baso % (Auto) Neut # (Auto) Lymph # (Auto) [place] # (Auto) Eos # (Auto) Baso # (Auto) Abs Immat Gran (auto) Neutrophils % (Manual) (33-66) % Band Neutrophils % (0-6) % Lymphocytes % (Manual) (23-45) % Metamyelocytes % (0-0) % Myelocytes % (0-0) % Neutrophils # (Manual) (1.8-7.7) T/MM3 Band Neutrophils # T/MM3 Lymphocytes # (Manual) (1-4.8) T/MM3 Metamyelocytes # T/MM3 Myelocytes # T/MM3 Nucleated RBCs Polychromasia Anisocytosis Target Cells RBC Morph Comment INR 1.39 H (0.92-1.18) APTT 24.0 (24-36) SEC Turbidity (0-20) Sodium (136-146) MEQ/L Potassium (3.6-5) MEQ/L Chloride (98-107) MEQ/L Carbon Dioxide (22-30) MEQ/L Anion Gap (5-15) meq/L BUN (7-17) MG/DL Creatinine (0.7-1.2) mg/dL Estimated Creat Clear (>50) mL/min GFR Calculation (>60) mL/min BUN/Creatinine Ratio (6-26) RATIO Glucose (65-110) MG/DL Calculated Osmolality (261-280) MOSM/KG Calcium (8.4-10.2) MG/DL Total Bilirubin (0.20-1.30) MG/DL Icterus Index (0-7) AST (14-36) U/L ALT (1-35) U/L Alkaline Phosphatase (38-126) U/L Troponin I (0-0.12) ng/ml NT-Pro-B Natriuret Pep (0-175) pg/mL Total Protein (6.3-8.2) g/dL Albumin (3.5-5.0) g/dL Globulin (2.4-3.6) G/DL Albumin/Globulin Ratio (1.1-2.2) RATIO Plasma Lactate (0.6-2.2) MMOL/L TSH 1.64 (0.47-4.68) mIU/L Prolactin (3.0-18.6) ng/ml Specimen Hemolysis (0-25) Adenovirus (PCR) Negative (Negative) B.parapertussis DNA PCR Negative (Negative) C. pneumoniae DNA (PCR) Negative (Negative) Coronavirus OC43 (PCR) Negative (Negative) Coronavirus HKU1 (PCR) Negative (Negative) Coronavirus 229E (PCR) Negative (Negative) Coronavirus NL63 (PCR) Negative (Negative) Human Metapneumovir PCR Negative (Negative) Influenza Type A (PCR) Negative (Negative) Influenza Type B (PCR) Negative (Negative) M. pneumoniae (PCR) Detected A* (Negative) Parainfluenza 1 (PCR) Negative (Negative) Parainfluenza 2 (PCR) Negative (Negative) Parainfluenza 3 (PCR) Negative (Negative) Parainfluenza 4 (PCR) Negative (Negative) RSV (PCR) Negative (Negative) Entero/Rhino (PCR) Negative (Negative) 07/12/18 07/12/18 07/12/18 Range/Units 07:44 07:47 07:47 WBC 39.2 H* (4.5-11.0) T/MM3 RBC 3.57 L (4.00-5.20) M/MM3 Hgb 8.6 L (12-16) GM/DL Hct 25.5 L (36-46) % MCV 71.4 L (80-100) UM3 MCH 24.1 L (26-34) UUG MCHC 33.7 (31-37) GM/DL RDW Std Deviation 34.5 L (36.9-50.2) FL Plt Count 509 H (130-400) T/MM3 MPV 11.1 (9.4-12.4) UM3 Immature Gran % (Auto) Not performed Neut % (Auto) Not performed Lymph % (Auto) Not performed [place] % (Auto) Not performed Eos % (Auto) Not performed Baso % (Auto) Not performed Neut # (Auto) Not performed Lymph # (Auto) Not performed [place] # (Auto) Not performed Eos # (Auto) Not performed Baso # (Auto) Not performed Abs Immat Gran (auto) Not performed Neutrophils % (Manual) 73.0 H (33-66) % Band Neutrophils % 18.0 H (0-6) % Lymphocytes % (Manual) 7.0 L (23-45) % Metamyelocytes % 1.0 H (0-0) % Myelocytes % 1.0 H (0-0) % Neutrophils # (Manual) 28.6 H (1.8-7.7) T/MM3 Band Neutrophils # 7.1 T/MM3 Lymphocytes # (Manual) 2.7 (1-4.8) T/MM3 Metamyelocytes # 0.4 T/MM3 Myelocytes # 0.4 T/MM3 Nucleated RBCs 3 Polychromasia 1+ Anisocytosis 2+ Target Cells 1+ RBC Morph Comment Abnormal INR (0.92-1.18) APTT (24-36) SEC Turbidity < 20 (0-20) Sodium 138 (136-146) MEQ/L Potassium 3.7 (3.6-5) MEQ/L Chloride 94 L (98-107) MEQ/L Carbon Dioxide 32 H (22-30) MEQ/L Anion Gap 12 (5-15) meq/L BUN 56.0 H* (7-17) MG/DL Creatinine 1.1 (0.7-1.2) mg/dL Estimated Creat Clear 77 (>50) mL/min GFR Calculation 52 (>60) mL/min BUN/Creatinine Ratio 51 H (6-26) RATIO Glucose 233 H (65-110) MG/DL Calculated Osmolality 289 H (261-280) MOSM/KG Calcium 8.3 L (8.4-10.2) MG/DL Total Bilirubin 2.10 H (0.20-1.30) MG/DL Icterus Index < 2 (0-7) AST 89 H (14-36) U/L ALT 81 H (1-35) U/L Alkaline Phosphatase 153 H (38-126) U/L Troponin I 0.157 H (0-0.12) ng/ml NT-Pro-B Natriuret Pep 24633 H (0-175) pg/mL Total Protein 7.3 (6.3-8.2) g/dL Albumin 3.6 (3.5-5.0) g/dL Globulin 3.7 H (2.4-3.6) G/DL Albumin/Globulin Ratio 1.0 L (1.1-2.2) RATIO Plasma Lactate 1.7 (0.6-2.2) MMOL/L TSH (0.47-4.68) mIU/L Prolactin 53.3 H (3.0-18.6) ng/ml Specimen Hemolysis < 15 < 15 (0-25) Adenovirus (PCR) (Negative) B.parapertussis DNA PCR (Negative) C. pneumoniae DNA (PCR) (Negative) Coronavirus OC43 (PCR) (Negative) Coronavirus HKU1 (PCR) (Negative) Coronavirus 229E (PCR) (Negative) Coronavirus NL63 (PCR) (Negative) Human Metapneumovir PCR (Negative) Influenza Type A (PCR) (Negative) Influenza Type B (PCR) (Negative) M. pneumoniae (PCR) (Negative) Parainfluenza 1 (PCR) (Negative) Parainfluenza 2 (PCR) (Negative) Parainfluenza 3 (PCR) (Negative) Parainfluenza 4 (PCR) (Negative) RSV (PCR) (Negative) Entero/Rhino (PCR) (Negative) - Radiology Data Attestation: I reviewed the patient's radiology results. CHEST X-RAY: RIGHT MIDDLE AND LOWER INFILTRATES Disposition Clinical Impression: Mycoplasma pneumonia Qualifiers: Laterality: bilateral Lung location: lower lobe of lung Qualified Code(s): J15.7 - Pneumonia due to Mycoplasma pneumoniae Respiratory failure with hypoxia Qualifiers: Chronicity: acute Qualified Code(s): J96.01 - Acute respiratory failure with hypoxia Disposition: 02 To [facility] [place] Acute Care Condition: Stable Time of Disposition: 08:40 - Seen By: physician
[2018-07-12] MEDS ORDERED: ACETAMINOPHEN 650 MG SUPPOSITORY PR PRN (10:21)
[2018-07-12] MEDS ORDERED: ONDANSETRON 4 MG/2 ML INJECTION IVP PRN (10:21)
[2018-07-12] MEDS ORDERED: HYDROCODONE/APAP 5mg/325mg TABLET PO PRN (10:21)
[2018-07-12] MEDS ORDERED: MORPHINE SULFATE 2mg INJECTION IVP PRN (10:21)
[2018-07-12] MEDS ORDERED: SENNA + DOCUSATE TABLET PO PRN (10:21)
[2018-07-12] MEDS: AZITHROMYCIN IV 500 MG in NS 250ml 250 ML IV SCH (10:30)
[2018-07-12] MEDS: NS 1,000 ML IV SCH ×2 (10:37→22:55)
[2018-07-12] MEDS: SALINE FLUSH 10ml SYRINGE IVF PRN (10:42)
[2018-07-12 11:13] VITALS: BMI 46.0
[2018-07-12] MEDS ORDERED: ALBUTEROL/IPRATROPIUM 2.5mg-0.5mg/3ml NEB AEROSOL PRN (11:17)
--- NOTE | 2018-07-12 11:22 | History & Physical Report ---
History of Present Illness Date: 07/12/18 Chief complaint: shortness of breath, productive cough HPI: A very pleasant 52-year-old female patient of Dr. Waters presented to the emergency room with approximately 10 day history of upper respiratory symptoms including cough with greenish mucoid expectoration which gradually worsened leading to shortness of breath over the past 2 days. In the emergency room, patient noted to her WBC count 39,200 with left shift. Lactic acid 1.7 although prolactin elevated at 53. Patient also requiring high flow nasal cannula oxygen at 10 L and later on required BiPAP noninvasive ventilation to maintain oxygen saturations. With these findings, hospitalist service was contacted and patient admitted to ICU. Patient evaluated at bedside in the ICU following admission. Patient has been followed up at [facility] for the past 27 years. Reports that for the past 10 days she has been having cough with greenish mucoid expectoration, was treated with course of outpatient antibiotic, although patient could not recollect name of antibiotic. Symptoms did not improve and thereafter for the past 2 days, patient noticed increasing shortness of breath. No reported subjective fever, no chills, no chest pain, no palpitations, no dizziness, no blurred vision. Patient was on BiPAP noninvasive ventilation with FiO2 50 % at the time of initial ICU admission and during interview, patient placed on high flow nasal cannula 8 L with oxygen saturation 8990 percent. Patient has received 1 L IV fluid normal saline bolus in the [place] [address] and troponin I also slightly elevated at 0.157. Likely secondary to demand ischemia however we will perform serial EKG and cardiac enzymes every 6 hours 3. Review of Systems Review of systems: 10 point review of systems completed, negative except for - positive cough, positive greenish mucoid expectoration, positive shortness of breath. Past Medical History Medical History: Medical History (Last Updated 06/06/18 @ 11:08 by Sherly Delacruz APRN) Thyroid disease (Chronic) GERD (gastroesophageal reflux disease) (Chronic) Arthritis (Chronic) Anxiety History of adenomatous polyp of colon Surgical History: Cholecystectomy. -colonoscopy 10 adenomatous polyps 03/28/2017 Family History: Family History (Last Updated 04/29/18 @ 12:03 by SYDNIE Thomas) Father Diabetes Brother Diabetes Paternal grandmother had breast cancer. Family History Updates: No reported family history of coronary artery disease. Family History: As Above - Social History Smoking status: Never smoker Substance use type: does not use Alcohol intake: never Housing: assisted living facility Medications Home Medications Medication Instructions Recorded Confirmed Type Fluoxetine HCl 1 cap PO HS #30 03/27/17 06/06/18 History Levothyroxine Sodium 1 tab PO DAILY #30 03/27/17 06/06/18 History Paliperidone Palmitate [Invega 1 unit SQ Q3M #2 03/27/17 06/06/18 History Trinza] Ziprasidone HCl 1 cap PO DAILY #30 03/27/17 06/06/18 History Ziprasidone HCl 1 cap PO HS #30 03/27/17 06/06/18 History Allergies Allergy/AdvReac Type Severity Reaction Status Date / Time No Known Allergies Allergy Unverified 03/28/17 06:23 Exam Vital Signs: Temperature 98.1 F 07/12/18 09:46 Pulse Rate 85 07/12/18 10:00 Respiratory Rate 29 H 07/12/18 10:00 Blood Pressure 142/74 H 07/12/18 09:00 Pulse Oximetry 98 07/12/18 10:39 Height/Weight/BMI: Height 1.63 m Weight 121.4 kg - Additional findings Additional findings: General: Alert, awake, oriented x3. In moderate respiratory distress. Patient communicates in 23 word sentences. Morbidly obese. Head: Pupils equal, round, reactive to light and accommodation. Extraocular movements intact. Neck: Unable to visualize JVP. Positive dry oral mucosa. Chest: The patient does use accessory muscles for breathing. Tachypneic. Lungs: Breath sounds audible on auscultation bilateral lung [place]. Diffuse expiratory wheezes bilateral lung [place]. Coarse crackles on auscultation right lung base. No pleural rub. CVS: S1, S2 heard on auscultation. Tachycardic. Normal rate and rhythm. No murmur, no S3/S4 gallops. Abdomen: Soft, obese, nontender, no distention. Bowel sounds appreciated on auscultation. Skin: No rashes, no induration, no erythema. Capillary refill less than 4 seconds. Extremities: No evidence of pedal edema bilateral lower extremities. No calf tenderness bilaterally. Palpable dorsalis pedis and posterior tibial pulses bilateral lower extremities. Results - Labs CBC & Chem 7: 07/12/18 07:47 07/12/18 07:47 Labs: Laboratory Tests 07/12/18 07/12/18 07/12/18 07:37 07:42 07:44 Calcium Total Bilirubin Icterus Index AST ALT Alkaline Phosphatase Troponin I 0.157 H NT-Pro-B Natriuret Pep 98762 H Total Protein Albumin Globulin Albumin/Globulin Ratio Plasma Lactate 1.7 TSH 1.64 Prolactin Adenovirus (PCR) Negative B.parapertussis DNA PCR Negative C. pneumoniae DNA (PCR) Negative Coronavirus OC43 (PCR) Negative Coronavirus HKU1 (PCR) Negative Coronavirus 229E (PCR) Negative Coronavirus NL63 (PCR) Negative Human Metapneumovir PCR Negative Influenza Type A (PCR) Negative Influenza Type B (PCR) Negative M. pneumoniae (PCR) Detected A* Parainfluenza 1 (PCR) Negative Parainfluenza 2 (PCR) Negative Parainfluenza 3 (PCR) Negative Parainfluenza 4 (PCR) Negative RSV (PCR) Negative Entero/Rhino (PCR) Negative 07/12/18 07:47 Calcium 8.3 L Total Bilirubin 2.10 H Icterus Index < 2 AST 89 H ALT 81 H Alkaline Phosphatase 153 H Troponin I NT-Pro-B Natriuret Pep Total Protein 7.3 Albumin 3.6 Globulin 3.7 H Albumin/Globulin Ratio 1.0 L Plasma Lactate TSH Prolactin 53.3 H Adenovirus (PCR) B.parapertussis DNA PCR C. pneumoniae DNA (PCR) Coronavirus OC43 (PCR) Coronavirus HKU1 (PCR) Coronavirus 229E (PCR) Coronavirus NL63 (PCR) Human Metapneumovir PCR Influenza Type A (PCR) Influenza Type B (PCR) M. pneumoniae (PCR) Parainfluenza 1 (PCR) Parainfluenza 2 (PCR) Parainfluenza 3 (PCR) Parainfluenza 4 (PCR) RSV (PCR) Entero/Rhino (PCR) Microbiology Results: Microbiology 07/12/18 07:47 Peripheral/Iv Start Blood Culture - Preliminary Culture Initiated - Results Pending 07/12/18 07:43 Peripheral/Iv Start Blood Culture - Preliminary Culture Initiated - Results Pending Assessment and Plan Assessment and Plan: Assessment: Sepsis, likely originating from pneumonia. Acute hypoxemic respiratory failure Right perihilar, right lower lobe pneumonia, positive mycoplasma pneumoniae PCR Schizoaffective disorder Anxiety Hypothyroidism GERD History of adenomatous polyposis of colon, 17 polyps noted on previous colonoscopy 03/28/2017. Osteoarthritis Morbid obesity, BMI 46 Plan: Patient admitted to CCU with acute hypoxemic respiratory failure. ABG requested. Prolactin elevated at 53 although lactic acid was 1.7. We will recheck lactic acid in 6 hours. Patient received 1 L IV fluid normal saline bolus in the emergency room. Started on IV fluids normal saline at 100 mL per hour for 1 L and thereafter will decrease to 75 mL per hour. Respiratory panel shows positive mycoplasma pneumoniae PCR. Blood culture 2, sputum culture, Legionella urine antigen results awaited. Antibiotic coverage with IV Rocephin 1 g daily and IV azithromycin 500 mg daily. DuoNeb 3 mL nebulization treatment every 6 hours scheduled. Albuterol 0.083% nebulization every 2 hours as needed for wheezing or shortness of breath. We will perform BiPAP 15/5 cm H2O with FiO2 45% every 4 hours off and on during daytime and continuously at nighttime. Cautious IV fluid replacement in the context of concern for underlying CHF. BNP 99460. Echocardiogram ordered next available. Serum troponin 0.157, likely secondary to demand ischemia. Repeat EKG and cardiac enzymes every 6 hours 2 ordered. We will continue home medication levothyroxine, ziprasidone, fluoxetine. Patient placed on 3 g salt, mechanical soft diet with nectar thickened liquids. We will advance diet as tolerated. Tylenol 650 mg by mouth every 5 hours as needed for mild pain or fever. IV morphine 12 milligram every 2 hours as needed for severe pain. Patient reportedly had appointment for repeat colonoscopy last week with Dr. Albright but missed her appointment as she was feeling sick. Will need appointment rescheduled at the time of discharge. We'll check CBC with differential, CMP, mag, falls, BNP and repeat chest x-ray tomorrow. DVT Prophylaxis: SCD's, Lovenox GI Prophylaxis: Protonix Resuscitation Status: Full Code - Time spent with patient Time with patient PN: 70 minutes - Physician Narrative Narrative: Date: 07/12/18 Time: 1104 Hospital Course Summary Disclaimer: The visit summary below is not to be considered part of the above Progress Note. Hospital Course: 07/12/2018 Patient admitted to CCU with acute hypoxemic respiratory failure. ABG requested. Prolactin elevated at 53 although lactic acid was 1.7. We will recheck lactic acid in 6 hours. Patient received 1 L IV fluid normal saline bolus in the emergency room. Started on IV fluids normal saline at 100 mL per hour for 1 L and thereafter will decrease to 75 mL per hour. Respiratory panel shows positive mycoplasma pneumoniae PCR. Blood culture 2, sputum culture, Legionella urine antigen results awaited. Antibiotic coverage with IV Rocephin 1 g daily and IV azithromycin 500 mg daily. DuoNeb 3 mL nebulization treatment every 6 hours scheduled. Albuterol 0.083% nebulization every 2 hours as needed for wheezing or shortness of breath. Cautious IV fluid replacement in the context of concern for underlying CHF. BNP 39183. Echocardiogram ordered next available. Serum troponin 0.157, likely secondary to demand ischemia. Repeat EKG and cardiac enzymes every 6 hours 2 ordered. We will continue home medication levothyroxine, ziprasidone, fluoxetine. Patient placed on 3 g salt, mechanical soft diet with nectar thickened liquids. We will advance diet as tolerated. Tylenol 650 mg by mouth every 5 hours as needed for mild pain or fever. IV morphine 12 milligram every 2 hours as needed for severe pain. Patient reportedly had appointment for repeat colonoscopy last week with Dr. Albright but missed her appointment as she was feeling sick. Will need appointment rescheduled at the time of discharge.
[2018-07-12] MEDS: ALBUTEROL/IPRATROPIUM 2.5mg-0.5mg/3ml NEB AEROSOL SCH ×2 (11:30→15:35)
[2018-07-12] MEDS ORDERED: ALBUTEROL 2.5mg/3ml (0.083%) NEB AEROSOL PRN (11:44)
[2018-07-12] MEDS: ENOXAPARIN 40 MG/0.4 ML INJECTION SQ SCH (15:30)
[2018-07-12] MEDS: MAG-AL + SIM ORAL LIQUID 30ml PO PRN (21:06)
[2018-07-12] MEDS: ZIPRASIDONE 40 MG CAPSULE PO SCH (21:53)
[2018-07-12] MEDS: FLUoxetine 20 MG CAPSULE PO SCH (21:53)
[2018-07-13] MEDS: ALBUTEROL/IPRATROPIUM 2.5mg-0.5mg/3ml NEB AEROSOL SCH ×4 (07:40→18:52)
[2018-07-13] MEDS ORDERED: CEFTRIAXONE 2 GM INJECTION IV SCH (08:00)
[2018-07-13] MEDS: CEFTRIAXONE 1 G in NS 100 ML IV SCH (08:21)
[2018-07-13] MEDS: ZIPRASIDONE 20 MG CAPSULE PO SCH (08:26)
[2018-07-13] MEDS: FLUoxetine 20 MG CAPSULE PO SCH ×2 (08:26→20:26)
[2018-07-13] MEDS: ENOXAPARIN 40 MG/0.4 ML INJECTION SQ SCH (08:26)
--- NOTE | 2018-07-13 09:28 | XRay Report ---
Indication: COUGH, SOA PROCEDURE: XR chest 1V: Encounter: Initial Comparison: None Findings: Airspace consolidation in the right middle and right lower lobes. Left lung base is not well seen due to overlapping soft tissues and an enlarged cardiac silhouette. No pneumothorax. No obvious pleural effusion. Cardiac silhouette is mildly enlarged. Mediastinal contours are normal. Pulmonary vascularity is normal. Impression: Right-sided pneumonia or aspiration. .
[2018-07-13] MEDS: AZITHROMYCIN IV 500 MG in NS 250ml 250 ML IV SCH (10:05)
[2018-07-13] MEDS: NS 1,000 ML IV SCH ×2 (14:08→16:31)
--- NOTE | 2018-07-13 14:20 | XRay Report ---
Indication: pneumonia PROCEDURE: XR chest 1V: Encounter: Initial Comparison: July 12, 2018 Findings: Slightly improved aeration of the right lung with diffuse fine nodular opacities in both lung bases. Trace effusions. No pneumothorax. Heart size and mediastinal contours are stable. Impression: Bilateral infiltrates, slightly improved on the right. .
--- NOTE | 2018-07-13 14:28 | Progress Note ---
- Date 07/13/18 Subjective: Patient resting in bedside chair at the time of interview. Patient currently on supplemental oxygen 8 L via high flow nasal cannula with oxygen saturations 95% . Subjectively, patient states she feels much better when compared to yesterday. Patient more talkative today, reports continued cough although expectoration has been clear, mucoid when compared to green at the time of admission. WBC count improved slightly to 33,700 this morning when compared to 39,200 yesterday. BNP improved to 1990 today. Patient has +1.5 EKG weight gain along with +4 L fluid balance from admission. IV fluid rate will be decreased to 30 mL per hour. Patient will be started on IV Lasix 40 mg twice a day. Echocardiogram has been requested. Objective Vital signs: Temperature 98.2 F 07/12/18 23:44 Pulse Rate 80 07/13/18 10:55 Respiratory Rate 26 H 07/13/18 11:10 Blood Pressure 111/70 07/13/18 10:55 Pulse Oximetry 95 07/13/18 11:10 Height/Weight/BMI: Height 1.63 m Weight 123.3 kg Body Mass Index 46.0 - Additional findings Additional findings: General: Alert, awake, oriented x3. Not in acute distress. Morbidly obese. Head: Pupils equal, round, reactive to light and accommodation. Extraocular movements intact. Neck: Unable to visualize JVP. No pharyngeal erythema noted. Chest: The patient does not use accessory muscles for breathing. Lungs: Crackles on auscultation bilateral lung dodson, more on left lung base. Breath sounds audible on auscultation bilateral lung dodson. No wheezing. No pleural rub. CVS: S1, S2 heard on auscultation. Normal rate and rhythm. No murmur, no S3/S4 gallops. Abdomen: Soft, nontender, no distention. Bowel sounds appreciated on auscultation. Skin: No rashes, no induration, no erythema. Capillary refill less than 4 seconds. Extremities: No evidence of pedal edema bilateral lower extremities. No calf tenderness bilaterally. Palpable dorsalis pedis and posterior tibial pulses bilateral lower extremities. Results - Labs CBC & Chem 7: 07/13/18 03:52 07/13/18 03:52 Labs: Laboratory Tests 07/12/18 07/12/18 07/12/18 07:44 15:11 19:48 Calculated Osmolality Calcium Phosphorus Magnesium Total Bilirubin Icterus Index AST ALT Alkaline Phosphatase Troponin I 0.157 H < 0.012 D 0.115 D NT-Pro-B Natriuret Pep Total Protein Albumin Globulin Albumin/Globulin Ratio 07/13/18 03:52 Calculated Osmolality 288 H Calcium 8.0 L Phosphorus 3.0 Magnesium 3.1 H Total Bilirubin 1.40 H Icterus Index < 2 AST 44 H D ALT 63 H Alkaline Phosphatase 128 H Troponin I NT-Pro-B Natriuret Pep 1990 H Total Protein 6.8 Albumin 3.2 L Globulin 3.6 Albumin/Globulin Ratio 0.9 L Microbiology Results: Microbiology 07/12/18 07:43 Peripheral/Iv Start Blood Culture - Preliminary No Growth After 1 Day 07/12/18 07:47 Peripheral/Iv Start Blood Culture - Preliminary No Growth After 1 Day 07/12/18 11:09 Urine Legionella Urinary Antigen - Final - ABG Interpretation ABG results: 07/12/18 11:57 ABG pH 7.496 H ABG pCO2 43 ABG pO2 120.9 H ABG HCO3 33.0 H ABG Total CO2 34.3 H ABG O2 Saturation 99.0 H ABG Base Excess 8.9 H - Impressions 1 view chest x-ray performed on 07/13/2018 Impression: Bilateral infiltrates, slightly improved on the right. Assessment and Plan Assessment and Plan: Assessment: Sepsis, likely originating from pneumonia. Bilateral lower lobe pneumonia, positive mycoplasma pneumoniae PCR Acute hypoxemic respiratory failure. Acute renal insufficiency, likely secondary to dehydration, resolved Schizoaffective disorder Anxiety Hypothyroidism GERD History of adenomatous polyposis of colon, 17 polyps noted on previous colonoscopy 03/28/2017. Osteoarthritis Morbid obesity, BMI 46 Plan: Patient admitted to CCU with acute hypoxemic respiratory failure. ABG performed after admission on 07/12/2018 on BiPAP 15/5 cm H2O with FiO2 50% shows pH 7.496 , PCO2 33, PO2 120, HCO3 33 with oxygen saturation 99%. Lactic acid 1.7 on admission, later on decreased slightly to 1.5. Patient has +4 L fluid balance along with 1.5 KG weight gain from admission. IV fluid rate decreased to 30 mL per hour. BNP 37895 on admission, 1989 today. Echocardiogram ordered next available. Patient started on IV Lasix 40 mg twice a day. Will closely monitor intake and output, daily weights. Respiratory panel shows positive mycoplasma pneumoniae PCR. Legionella urine antigen negative. Blood culture 2, sputum culture results awaited. Antibiotic coverage with IV Rocephin 1 g daily and IV azithromycin 500 mg daily. DuoNeb 3 mL nebulization treatment every 6 hours scheduled. Albuterol 0.083% nebulization every 2 hours as needed for wheezing or shortness of breath. We will provide BiPAP 15/5 cm H2O with FiO2 50% continuously at nighttime. Alternating with high flow nasal cannula 68 liters as needed to maintain oxygen saturations more than 90% during daytime. Serum troponin 0.157, repeat serum troponin improved to 0.115. Likely secondary to demand ischemia. We will continue home medication levothyroxine, ziprasidone, fluoxetine. Continue 3 g salt, mechanical soft diet with nectar thickened liquids. Tylenol 650 mg by mouth every 5 hours as needed for mild pain or fever. IV morphine 12 milligram every 2 hours as needed for severe pain. Patient reportedly had appointment for repeat colonoscopy last week with Dr. Albright but missed her appointment as she was feeling sick. Will need appointment rescheduled at the time of discharge. We'll check CBC with differential, CMP, mag, phosphorus, BNP and repeat chest x- ray tomorrow. DVT Prophylaxis: SCD's, Lovenox GI Prophylaxis: Protonix Resuscitation Status: Full Code - Physician Narrative Narrative: Date: 07/13/18 Time: 1419 Hospital Course Summary Disclaimer: The visit summary below is not to be considered part of the above Progress Note. Hospital Course: 07/12/2018 Patient admitted to CCU with acute hypoxemic respiratory failure. ABG requested. Prolactin elevated at 53 although lactic acid was 1.7. We will recheck lactic acid in 6 hours. Patient received 1 L IV fluid normal saline bolus in the emergency room. Started on IV fluids normal saline at 100 mL per hour for 1 L and thereafter will decrease to 75 mL per hour. Respiratory panel shows positive mycoplasma pneumoniae PCR. Blood culture 2, sputum culture, Legionella urine antigen results awaited. Antibiotic coverage with IV Rocephin 1 g daily and IV azithromycin 500 mg daily. DuoNeb 3 mL nebulization treatment every 6 hours scheduled. Albuterol 0.083% nebulization every 2 hours as needed for wheezing or shortness of breath. Cautious IV fluid replacement in the context of concern for underlying CHF. BNP 92837. Echocardiogram ordered next available. Serum troponin 0.157, likely secondary to demand ischemia. Repeat EKG and cardiac enzymes every 6 hours 2 ordered. We will continue home medication levothyroxine, ziprasidone, fluoxetine. Patient placed on 3 g salt, mechanical soft diet with nectar thickened liquids. We will advance diet as tolerated. Tylenol 650 mg by mouth every 5 hours as needed for mild pain or fever. IV morphine 12 milligram every 2 hours as needed for severe pain. Patient reportedly had appointment for repeat colonoscopy last week with Dr. Albright but missed her appointment as she was feeling sick. Will need appointment rescheduled at the time of discharge. 07/13/2018 Patient admitted to CCU with acute hypoxemic respiratory failure. ABG performed after admission on 07/12/2018 on BiPAP 15/5 cm H2O with FiO2 50% shows pH 7.496 , PCO2 33, PO2 120, HCO3 33 with oxygen saturation 99%. Lactic acid 1.7 on admission, later on decreased slightly to 1.5. Patient has +4 L fluid balance along with 1.5 KG weight gain from admission. IV fluid rate decreased to 30 mL per hour. BNP 20054 on admission, 1989 today. Echocardiogram ordered next available. Patient started on IV Lasix 40 mg twice a day. Will closely monitor intake and output, daily weights. Respiratory panel shows positive mycoplasma pneumoniae PCR. Legionella urine antigen negative. Blood culture 2, sputum culture results awaited. Antibiotic coverage with IV Rocephin 1 g daily and IV azithromycin 500 mg daily. DuoNeb 3 mL nebulization treatment every 6 hours scheduled. Albuterol 0.083% nebulization every 2 hours as needed for wheezing or shortness of breath. We will provide BiPAP 15/5 cm H2O with FiO2 50% continuously at nighttime. Alternating with high flow nasal cannula 68 liters as needed to maintain oxygen saturations more than 90% during daytime. Serum troponin 0.157, repeat serum troponin improved to 0.115. Likely secondary to demand ischemia.
[2018-07-13] MEDS: FUROSEMIDE 40 MG/4 ML INJECTION IVP SCH (16:30)
[2018-07-13] MEDS: ZIPRASIDONE 40 MG CAPSULE PO SCH (20:26)
[2018-07-13] MEDS ORDERED: ZIPRASIDONE 40 MG CAPSULE PO SCH (21:00)
[2018-07-13] MEDS: GUAIFENESIN/DM 5ml ORAL LIQUID PO PRN (21:39)
[2018-07-14] MEDS: LEVOTHYROXINE 75 MCG TABLET PO SCH (06:16)
[2018-07-14] MEDS: GUAIFENESIN/DM 5ml ORAL LIQUID PO PRN (06:27)
[2018-07-14] MEDS: ALBUTEROL/IPRATROPIUM 2.5mg-0.5mg/3ml NEB AEROSOL SCH ×4 (06:56→19:25)
[2018-07-14] MEDS: CEFTRIAXONE 1 G in NS 100 ML IV SCH (08:30)
[2018-07-14] MEDS ORDERED: ZIPRASIDONE 20 MG CAPSULE PO SCH (09:00)
[2018-07-14] MEDS: FLUoxetine 20 MG CAPSULE PO SCH ×2 (09:01→22:10)
[2018-07-14] MEDS: FUROSEMIDE 40 MG/4 ML INJECTION IVP SCH ×2 (09:02→17:23)
[2018-07-14] MEDS: ENOXAPARIN 40 MG/0.4 ML INJECTION SQ SCH (09:02)
[2018-07-14] MEDS: ZIPRASIDONE 20 MG CAPSULE PO SCH (09:02)
[2018-07-14] MEDS: SALINE FLUSH 10ml SYRINGE IVF PRN (09:05)
[2018-07-14] MEDS: AZITHROMYCIN IV 500 MG in NS 250ml 250 ML IV SCH (10:21)
[2018-07-14] MEDS ORDERED: ACETAMINOPHEN 325 MG TABLET PO PRN (12:11)
--- NOTE | 2018-07-14 12:24 | Progress Note ---
- Date 07/14/18 Subjective: Marian was seen shortly before lunch and was up in a chair at time of my assessment. She reported that her breathing is significantly improved from admission and that she continues to cough frequently with production of white sputum compared to the green sputum present previously. She continues to wheeze frequently and to become short of breath with minimal activity in the room. She denied chest pain, palpitations, nausea, fever, or chills. She reported she was not lightheaded when she transferred from bed to chair and she denied having any pain. She had several bowel movements yesterday with loose/liquid stools reported by nursing and consequently stool softeners have been discontinued. Objective Vital signs: Temperature 98.3 F 07/14/18 08:00 Pulse Rate 90 07/14/18 11:00 Respiratory Rate 29 H 07/14/18 11:00 Blood Pressure 111/70 07/14/18 11:00 Pulse Oximetry 93 -6 L 07/14/18 11:00 I/O 4304/3750 NAD, alert, mumbled speech EOMI, conjunctiva clear, sclera anicteric, oropharynx clear and without indication of thrush Respirations nonlabored with diminished airflow and course inspiratory/ expiratory crackles/rhonchi throughout; expiratory wheezing present posterior lung dodson Sinus rhythm on the bedside monitor however heart tones are obscured by respiratory noise; radial pulse regular Abdomen soft, nontender, obese, bowel sounds present +3 edema bilateral lower extremities Skin without rash/wounds Moving all extremities well Pleasant/cooperative Rhythm: Normal Sinus Rhythm Height/Weight/BMI: Height 1.63 m Weight 125.9 kg Body Mass Index 46.0 Results - Labs CBC & Chem 7: 07/14/18 04:00 07/14/18 04:00 Labs: S72 L24 M3 E1 Calcium 7.1, phosphorus 2.5, magnesium 2.5; albumin 3.1 AST 41, ALT 55, bilirubin 1.6-all improving ProBNP 688 Microbiology Results: Microbiology 07/12/18 07:43 Peripheral/Iv Start Blood Culture - Preliminary No Growth After 2 Days 07/12/18 07:47 Peripheral/Iv Start Blood Culture - Preliminary No Growth After 2 Days 07/12/18 11:09 Urine Legionella Urinary Antigen -negative - Imaging and Cardiology Chest x-ray Status: image reviewed by me (chest x-ray obtained yesterday with diffuse bilateral infiltrates and slightly improved on the right from admission film) Assessment and Plan (1) Acute respiratory failure with hypoxia Current visit: Yes Status: Acute (2) Mycoplasma pneumonia Current visit: Yes Status: Acute Assessment and Plan: Assessment: Acute hypoxemic respiratory failure. Sepsis, originating from pneumonia. Bilateral lower lobe pneumonia, positive mycoplasma pneumoniae PCR Acute renal insufficiency, likely secondary to dehydration, resolved Schizoaffective disorder Anxiety Hypothyroidism GERD History of adenomatous polyposis of colon, 17 polyps noted on previous colonoscopy 03/28/2017. Osteoarthritis Morbid obesity, BMI 46 Hypokalemia-07/14/18 Plan: Day 3 antibiotics for mycoplasma pneumonia; patient describes clearing sputum and feeling less short of breath with treatment. Continue ceftriaxone, azithromycin and switch to oral administration to complete 5 day course. Oxygen being titrated-decreased from 10 L to 6 L while awake; continues to require BiPAP at night. Continue diuresis, proBNP approaching normal. Renal function and hepatic function have improved with adequate oxygenation and diuresis. Potassium to be replaced orally. Stable to transfer out of ICU at this time. Need to reschedule colonoscopy with Dr. Albright noted. DVT Prophylaxis: SCD's, Lovenox GI Prophylaxis: Protonix Resuscitation Status: Full Code - Physician Narrative Narrative: Date: 07/14/18 Time: 1220 Hospital Course Summary Disclaimer: The visit summary below is not to be considered part of the above Progress Note. Hospital Course: 07/12/2018 Patient admitted to CCU with acute hypoxemic respiratory failure. ABG requested. Prolactin elevated at 53 although lactic acid was 1.7. We will recheck lactic acid in 6 hours. Patient received 1 L IV fluid normal saline bolus in the emergency room. Started on IV fluids normal saline at 100 mL per hour for 1 L and thereafter will decrease to 75 mL per hour. Respiratory panel shows positive mycoplasma pneumoniae PCR. Blood culture 2, sputum culture, Legionella urine antigen results awaited. Antibiotic coverage with IV Rocephin 1 g daily and IV azithromycin 500 mg daily. DuoNeb 3 mL nebulization treatment every 6 hours scheduled. Albuterol 0.083% nebulization every 2 hours as needed for wheezing or shortness of breath. Cautious IV fluid replacement in the context of concern for underlying CHF. BNP 73390. Echocardiogram ordered next available. Serum troponin 0.157, likely secondary to demand ischemia. Repeat EKG and cardiac enzymes every 6 hours 2 ordered. We will continue home medication levothyroxine, ziprasidone, fluoxetine. Patient placed on 3 g salt, mechanical soft diet with nectar thickened liquids. We will advance diet as tolerated. Tylenol 650 mg by mouth every 5 hours as needed for mild pain or fever. IV morphine 12 milligram every 2 hours as needed for severe pain. Patient reportedly had appointment for repeat colonoscopy last week with Dr. Albright but missed her appointment as she was feeling sick. Will need appointment rescheduled at the time of discharge. 07/13/2018 Patient admitted to CCU with acute hypoxemic respiratory failure. ABG performed after admission on 07/12/2018 on BiPAP 15/5 cm H2O with FiO2 50% shows pH 7.496 , PCO2 33, PO2 120, HCO3 33 with oxygen saturation 99%. Lactic acid 1.7 on admission, later on decreased slightly to 1.5. Patient has +4 L fluid balance along with 1.5 KG weight gain from admission. IV fluid rate decreased to 30 mL per hour. BNP 98457 on admission, 1989 today. Echocardiogram ordered next available. Patient started on IV Lasix 40 mg twice a day. Will closely monitor intake and output, daily weights. Respiratory panel shows positive mycoplasma pneumoniae PCR. Legionella urine antigen negative. Blood culture 2, sputum culture results awaited. Antibiotic coverage with IV Rocephin 1 g daily and IV azithromycin 500 mg daily. DuoNeb 3 mL nebulization treatment every 6 hours scheduled. Albuterol 0.083% nebulization every 2 hours as needed for wheezing or shortness of breath. We will provide BiPAP 15/5 cm H2O with FiO2 50% continuously at nighttime. Alternating with high flow nasal cannula 68 liters as needed to maintain oxygen saturations more than 90% during daytime. Serum troponin 0.157, repeat serum troponin improved to 0.115. Likely secondary to demand ischemia. 07/14/18 Day 3 antibiotics for mycoplasma pneumonia; patient describes clearing sputum and feeling less short of breath with treatment. Continue ceftriaxone, azithromycin and switch to oral administration to complete 5 day course. Oxygen being titrated-decreased from 10 L to 6 L while awake; continues to require BiPAP at night. Continue diuresis, proBNP approaching normal. Renal function and hepatic function have improved with adequate oxygenation and diuresis. Potassium being replaced orally.
[2018-07-14] MEDS ORDERED: FALL RISK - PHARMACY CONSULT MC ONE (13:03)
[2018-07-14] MEDS: NS 1,000 ML IV SCH (17:15)
--- NOTE | 2018-07-14 18:19 | Echocardiogram ---
DATE OF STUDY 07/14/2018 INDICATIONS Dyspnea. TECHNICAL QUALITY Technically fair 2D, M-mode, Doppler echocardiographic images were submitted for interpretation. Images were somewhat difficult due to patient being scanned in upright position because of marked dyspnea. FINDINGS 1. CARDIAC CHAMBERS: All cardiac chamber measurements are normal. Aortic root diameter is normal. RV size and contractility appear normal. 2. LEFT VENTRICLE: Wall thickness measures 10 mm in the posterior wall, 11 mm in the septal wall. Left ventricular systolic function appears normal. Ejection fraction is normal measured at about 65%. No significant regional wall motion abnormalities were appreciated. 3. VALVES: Aortic valve exhibits mild sclerotic changes. Valve opening is normal. Mitral valve exhibits annular calcification posteriorly. Valve excursion is normal. Tricuspid valve structure and motion appear normal. Normal valve excursion. Visualization is somewhat difficult nevertheless. 4. DOPPLER: Normal diastolic function parameters. Trace regurgitation involving tricuspid, mitral and pulmonic valves, none of hemodynamic significance. 5. Systolic pulmonary artery pressure estimated at 26 mmHg. 6. Flow velocities throughout were normal. The aortic valve was borderline increased at 1.95 m/sec with a mean gradient of 8 mmHg. Nevertheless, the calculated aortic valve area 2.2 cm2 falls well within normal range. Peak flow velocity at the LVOT level is 1 m/sec. 7. No evidence of pericardial effusion, intracardiac masses, thrombi, vegetations or shunts. 8. IVC is not well seen. IMPRESSION 1. Technically difficult study due to patient's marked dyspnea and patient being scanned in upright position. 2. Normal biventricular size and systolic function. 3. Normal diastolic function parameters. 4. Sclerotic changes of the aortic and mitral valves without significant valvular dysfunction. [facility]
[2018-07-14] MEDS: ZIPRASIDONE 40 MG CAPSULE PO SCH (22:10)
[2018-07-15] MEDS: LEVOTHYROXINE 75 MCG TABLET PO SCH (06:26)
[2018-07-15] MEDS: ALBUTEROL/IPRATROPIUM 2.5mg-0.5mg/3ml NEB AEROSOL SCH ×4 (07:17→19:08)
[2018-07-15] MEDS: CEFTRIAXONE 1 G in NS 100 ML IV SCH (07:49)
[2018-07-15] MEDS: ENOXAPARIN 40 MG/0.4 ML INJECTION SQ SCH (08:07)
[2018-07-15] MEDS: FUROSEMIDE 40 MG/4 ML INJECTION IVP SCH (08:07)
[2018-07-15] MEDS: AZITHROMYCIN 500 MG TABLET PO SCH (08:36)
[2018-07-15] MEDS: ZIPRASIDONE 20 MG CAPSULE PO SCH (08:37)
[2018-07-15] MEDS ORDERED: FUROSEMIDE 40 MG/4 ML INJECTION IVP SCH (14:00)
[2018-07-15] MEDS ORDERED: MAG-AL + SIM ORAL LIQUID 30ml PO PRN (19:06)
[2018-07-15] MEDS ORDERED: BISACODYL 10 MG SUPPOSITORY RECTALLY PRN (19:42)
--- NOTE | 2018-07-15 20:47 | Progress Note ---
- Date 07/15/18 Subjective: Marian reports that she was able to walk with physical therapy earlier today- she was shaky but able to walk out into the hallway and back into the room. She was slightly short of breath with activity. At rest her breathing is improved although she continues to have cough productive of white sputum. She denied pleuritic pain or palpitations. She reports having no nausea or vomiting and that her appetite is excellent. Bowel function is good although she is mostly "passing gas". The patient had no concerns today except getting stronger. Objective Vital signs: Temperature 96.9 F 07/15/18 19:00 Pulse Rate 90 07/15/18 19:00 Respiratory Rate 24 07/15/18 19:08 Blood Pressure 125/68 07/15/18 19:00 Pulse Oximetry 91 07/15/18 19:08 I/O 1781/3800; weight down 1 kg from yesterday NAD, alert, mumbled speech Conjunctiva clear, sclera anicteric, conjugate gaze Respirations nonlabored, good airflow, inspiratory > expiratory crackles heard best in the posterior lung dodson but faintly audible anteriorly as well; no wheezing present at time of my exam Regular rhythm, S1-S2 Abdomen soft, nontender, obese, bowel sounds present Extremities with trace edema Moving upper extremities spontaneously/symmetrically Rhythm: Normal Sinus Rhythm Height/Weight/BMI: Height 1.63 m Weight 124.8 kg Body Mass Index 46.0 Results - Labs CBC & Chem 7: 07/15/18 09:43 07/15/18 04:29 Labs: WBC 14.8 this morning with 73% neutrophils, 7% bands, 18% lymphocytes; initial hemoglobin reported at 6.8 with repeat as above. Serum iron 113, TIBC 311, iron saturation 36% Magnesium 2.3 Microbiology Results: Microbiology 07/12/18 07:43 Peripheral/Iv Start Blood Culture - Preliminary No Growth After 3 Days 07/12/18 07:47 Peripheral/Iv Start Blood Culture - Preliminary No Growth After 3 Days 07/12/18 11:09 Urine Legionella Urinary Antigen - Final - Echocardiogram History of Echocardiogram: FINDINGS. 1. CARDIAC CHAMBERS: All cardiac chamber measurements are normal. Aortic root diameter is normal. RV size and contractility appear normal. 2. LEFT VENTRICLE: Wall thickness measures 10 mm in the posterior wall, 11 mm in the septal wall. Left ventricular systolic function appears normal. Ejection fraction is normal measured at about 65%. No significant regional wall motion abnormalities were appreciated. 3. VALVES : Aortic valve exhibits mild sclerotic changes. Valve opening is normal. Mitral valve exhibits annular calcification posteriorly. Valve excursion is normal. Tricuspid valve structure and motion appear normal. Normal valve excursion. Visualization is somewhat difficult nevertheless. 4. DOPPLER: Normal diastolic function parameters. Trace regurgitation involving tricuspid, mitral and pulmonic valves, none of hemodynamic significance. 5. Systolic pulmonary artery pressure estimated at 26 mmHg. 6. Flow velocities throughout were normal. The aortic valve was borderline increased at 1.95 m/sec with a mean gradient of 8 mmHg. Nevertheless, the calculated aortic valve area 2.2 cm2 falls well within normal range. Peak flow velocity at the LVOT level is 1 m/ sec. 7. No evidence of pericardial effusion, intracardiac masses, thrombi, vegetations or shunts. 8. IVC is not well seen. IMPRESSION. 1. Technically difficult study due to patient's marked dyspnea and patient being scanned in upright position. 2. Normal biventricular size and systolic function. 3. Normal diastolic function parameters. 4. Sclerotic changes of the aortic and mitral valves without significant valvular dysfunction. Assessment and Plan (1) Acute respiratory failure with hypoxia Current visit: Yes Status: Acute (2) Mycoplasma pneumonia Current visit: Yes Status: Acute Assessment and Plan: Assessment: Acute hypoxemic respiratory failure. Sepsis, originating from pneumonia. Bilateral lower lobe pneumonia, positive mycoplasma pneumoniae PCR Acute renal insufficiency, likely secondary to dehydration, resolved Schizoaffective disorder Anxiety Hypothyroidism GERD History of adenomatous polyposis of colon, 17 polyps noted on previous colonoscopy 03/28/2017. Osteoarthritis Morbid obesity, BMI 46 Hypokalemia-07/14/18 Plan: Day 4 antibiotics for mycoplasma pneumonia; continue ceftriaxone, azithromycin and switch to oral administration to complete 5 day course. Chest x-ray in a.m. On 6 L oxygen earlier in the day but has been titrated back to 10 L this evening ; resume BiPAP this evening. Continue diuresis. Renal function and hepatic function have improved with adequate oxygenation and diuresis. Potassium to be replaced orally. Microcytic anemia however patient is not iron deficient by studies obtained today. Hemoglobin electrophoresis will be sent. Bowel regimen initiated-last bowel movement 2 days ago. Appointment for colonoscopy with Dr. Albright has been rescheduled. DVT Prophylaxis: SCD's, Lovenox GI Prophylaxis: Protonix Resuscitation Status: Full Code - Physician Narrative Narrative: Date: 07/15/18 Time: 2042 Hospital Course Summary Disclaimer: The visit summary below is not to be considered part of the above Progress Note. Hospital Course: 07/12/2018 Patient admitted to CCU with acute hypoxemic respiratory failure. ABG requested. Prolactin elevated at 53 although lactic acid was 1.7. We will recheck lactic acid in 6 hours. Patient received 1 L IV fluid normal saline bolus in the emergency room. Started on IV fluids normal saline at 100 mL per hour for 1 L and thereafter will decrease to 75 mL per hour. Respiratory panel shows positive mycoplasma pneumoniae PCR. Blood culture 2, sputum culture, Legionella urine antigen results awaited. Antibiotic coverage with IV Rocephin 1 g daily and IV azithromycin 500 mg daily. DuoNeb 3 mL nebulization treatment every 6 hours scheduled. Albuterol 0.083% nebulization every 2 hours as needed for wheezing or shortness of breath. Cautious IV fluid replacement in the context of concern for underlying CHF. BNP 52783. Echocardiogram ordered next available. Serum troponin 0.157, likely secondary to demand ischemia. Repeat EKG and cardiac enzymes every 6 hours 2 ordered. We will continue home medication levothyroxine, ziprasidone, fluoxetine. Patient placed on 3 g salt, mechanical soft diet with nectar thickened liquids. We will advance diet as tolerated. Tylenol 650 mg by mouth every 5 hours as needed for mild pain or fever. IV morphine 12 milligram every 2 hours as needed for severe pain. Patient reportedly had appointment for repeat colonoscopy last week with Dr. Albright but missed her appointment as she was feeling sick. Will need appointment rescheduled at the time of discharge. 07/13/2018 Patient admitted to CCU with acute hypoxemic respiratory failure. ABG performed after admission on 07/12/2018 on BiPAP 15/5 cm H2O with FiO2 50% shows pH 7.496 , PCO2 33, PO2 120, HCO3 33 with oxygen saturation 99%. Lactic acid 1.7 on admission, later on decreased slightly to 1.5. Patient has +4 L fluid balance along with 1.5 KG weight gain from admission. IV fluid rate decreased to 30 mL per hour. BNP 22704 on admission, 1990 today. Echocardiogram ordered next available. Patient started on IV Lasix 40 mg twice a day. Will closely monitor intake and output, daily weights. Respiratory panel shows positive mycoplasma pneumoniae PCR. Legionella urine antigen negative. Blood culture 2, sputum culture results awaited. Antibiotic coverage with IV Rocephin 1 g daily and IV azithromycin 500 mg daily. DuoNeb 3 mL nebulization treatment every 6 hours scheduled. Albuterol 0.083% nebulization every 2 hours as needed for wheezing or shortness of breath. We will provide BiPAP 15/5 cm H2O with FiO2 50% continuously at nighttime. Alternating with high flow nasal cannula 68 liters as needed to maintain oxygen saturations more than 90% during daytime. Serum troponin 0.157, repeat serum troponin improved to 0.115. Likely secondary to demand ischemia. 07/14/18 Day 3 antibiotics for mycoplasma pneumonia; patient describes clearing sputum and feeling less short of breath with treatment. Continue ceftriaxone, azithromycin and switch to oral administration to complete 5 day course. Oxygen being titrated-decreased from 10 L to 6 L while awake; continues to require BiPAP at night. Continue diuresis, proBNP approaching normal. Renal function and hepatic function have improved with adequate oxygenation and diuresis. Potassium being replaced orally. 07/15/18 Day 4 antibiotics for mycoplasma pneumonia; continue ceftriaxone, azithromycin and switch to oral administration to complete 5 day course. Chest x-ray in a.m. On 6 L oxygen earlier in the day but has been titrated back to 10 L this evening ; resume BiPAP this evening. Oxygen demand seems excessive at this point in the hospital course. Continue diuresis with oral potassium replacement. Echocardiogram with EF 65%, normal diastolic function, no significant valve disease, PAP 26 mm. Microcytic anemia however patient is not iron deficient by studies obtained today. Hemoglobin electrophoresis will be sent
[2018-07-15] MEDS: ZIPRASIDONE 40 MG CAPSULE PO SCH (21:20)
[2018-07-15] MEDS: SENNA + DOCUSATE TABLET PO SCH (21:20)
[2018-07-15] MEDS: FLUoxetine 20 MG CAPSULE PO SCH (21:20)
[2018-07-16] MEDS: LEVOTHYROXINE 75 MCG TABLET PO SCH (06:52)
[2018-07-16] MEDS: NS 1,000 ML IV SCH ×2 (07:00→07:08)
[2018-07-16] MEDS: ALBUTEROL/IPRATROPIUM 2.5mg-0.5mg/3ml NEB AEROSOL SCH ×4 (07:22→18:49)
[2018-07-16] MEDS ORDERED: NS FLUSH BAG 500ml IV PRN (08:17)
--- NOTE | 2018-07-16 08:25 | Progress Note ---
- Date 07/16/18 Subjective: Marian is seen this morning while resting in bed, eagerly awaiting her breakfast. She reports she is doing much better this morning and is coughing up "lots of white mucous". She feels like her breathing is improving and reports that she did not use Bipap last night, only her nasal canula and "slept very good". No chest pain, pleuritic pain or nausea/vomiting. Appetite remains good. No bowel movement, though she admits to lots of gas. She denies any lightheadedness, dizziness or near syncope, though has not been up much this morning. Hemoglobin decreased to 6.5 today. Very pleasant with no concerns today. Objective Vital signs: Temperature 97.5 F 07/16/18 07:00 Pulse Rate 83 07/16/18 07:00 Respiratory Rate 24 07/16/18 07:22 Blood Pressure 134/83 07/16/18 07:00 Pulse Oximetry 91 07/16/18 07:22 Rhythm: Normal Sinus Rhythm Height/Weight/BMI: Height 5 ft 4 in Weight 275 lb 2.19 oz Body Mass Index 46.0 Comments: Sitting up in bed; occasional audible wheezing and productive cough but otherwise breathing easily on 6L NC. UOP >3L daily. - Constitutional Present: no acute distress, well nourished, well developed, morbidly obese, cooperative Comments: Very pleasant and talkative this morning. Eagerly awaiting breakfast. - Routine HEENT Exam Head: Present: normocephalic, atraumatic Eye: Present: PERRL. Absent: conjunctival icterus ENT: Present: mucous membranes moist, oropharynx clear - Routine Respiratory Exam Present: decreased breath sounds, crackles. Absent: respiratory distress Comments: Occasional audible wheezing with productive cough with reportedly white sputum. Audible wheezing clears with cough. Respirations nonlabored on 6L NC. Course breath sounds course bilaterally. - Routine Cardiovascular Exam Present: RRR, S1, S2 - Routine Abdominal Exam Present: soft, normoactive bowel sounds, non tender, distended - Routine Extremities Exam Present: edema (trace), pulses intact Comments: SCDs in place bilaterally. - Routine Back/Spine/Pelvis Exam Back/Spine: Present: full ROM. Absent: vertebral tenderness Comments: Requires assistance to sit up, but is able to sit up without discomfort. - Routine Musculoskeletal Exam Musculoskeletal: Present: no clubbing or cyanosis, moving extremities well - Routine Skin Exam Present: intact, dry, warm Comments: Afebrile. - Routine Neurological Exam Present: alert, moving all extremities, hearing grossly intact - Routine Lymphatic Exam Lymphatic: Absent: lymphedema - Routine Psychiatric Exam Present: normal affect, cooperative Results - Labs CBC & Chem 7: 07/16/18 14:11 07/16/18 03:45 Labs: WBC 12.9 (trending down) with 81% neutrophils, 13% lymphocytes. Bandemia resolved. Hemoglobin 6.5. K+ slightly low at 3.5. CO2 trending up at 42 with SCr trending down at 0.5. Serum iron 113, TIBC 311, iron saturation 36% on 07/15/18. Microbiology Results: Microbiology 07/12/18 07:47 Peripheral/Iv Start Blood Culture - Preliminary No Growth After 4 Days 07/12/18 07:43 Peripheral/Iv Start Blood Culture - Preliminary No Growth After 4 Days 07/12/18 11:09 Urine Legionella Urinary Antigen - Final NEGATIVE - Echocardiogram History of Echocardiogram: FINDINGS. 1. CARDIAC CHAMBERS: All cardiac chamber measurements are normal. Aortic root diameter is normal. RV size and contractility appear normal. 2. LEFT VENTRICLE: Wall thickness measures 10 mm in the posterior wall, 11 mm in the septal wall. Left ventricular systolic function appears normal. Ejection fraction is normal measured at about 65%. No significant regional wall motion abnormalities were appreciated. 3. VALVES : Aortic valve exhibits mild sclerotic changes. Valve opening is normal. Mitral valve exhibits annular calcification posteriorly. Valve excursion is normal. Tricuspid valve structure and motion appear normal. Normal valve excursion. Visualization is somewhat difficult nevertheless. 4. DOPPLER: Normal diastolic function parameters. Trace regurgitation involving tricuspid, mitral and pulmonic valves, none of hemodynamic significance. 5. Systolic pulmonary artery pressure estimated at 26 mmHg. 6. Flow velocities throughout were normal. The aortic valve was borderline increased at 1.95 m/sec with a mean gradient of 8 mmHg. Nevertheless, the calculated aortic valve area 2.2 cm2 falls well within normal range. Peak flow velocity at the LVOT level is 1 m/ sec. 7. No evidence of pericardial effusion, intracardiac masses, thrombi, vegetations or shunts. 8. IVC is not well seen. IMPRESSION. 1. Technically difficult study due to patient's marked dyspnea and patient being scanned in upright position. 2. Normal biventricular size and systolic function. 3. Normal diastolic function parameters. 4. Sclerotic changes of the aortic and mitral valves without significant valvular dysfunction. Assessment and Plan (1) Mycoplasma pneumonia Current visit: Yes Status: Acute (2) Acute respiratory failure with hypoxia Current visit: Yes Status: Acute Assessment and Plan: Assessment: Acute hypoxemic respiratory failure. Sepsis, originating from pneumonia. Bilateral lower lobe pneumonia, positive mycoplasma pneumoniae PCR Acute renal insufficiency, likely secondary to dehydration, resolved Anemia (POA). Schizoaffective disorder Anxiety Hypothyroidism GERD History of adenomatous polyposis of colon, 17 polyps noted on previous colonoscopy 03/28/2017. Osteoarthritis Morbid obesity, BMI 46 Hypokalemia-07/14/18 Plan: Day 5 antibiotics for mycoplasma pneumonia - continue ceftriaxone IV and azithromycin PO. CXR this AM - pending. On 6 L oxygen currently and breathing easily. Only on NC during the night - did not use Bipap. Hgb 6.5 this morning. Will give 1 unit PRBC now and recheck hgb following transfusion. CO2 trending up (42 today). SCr and BUN stable. Continue adequate oxygenation. >3L urinary output daily via hoffman. Weight slowly tending down and BNP trending down. Continue diuresis. Consider decreasing to Lasix dosing to avoid over diuresis. K+ 3.5. Continue KCl 40 mEq po BID. Will give additional KCl 20 meq po this AM. Continue to monitor. Microcytic anemia however patient is not iron deficient by studies obtained 07/15. Hemoglobin electrophoresis will be sent. No signs of bleeding. Continue to monitor hemoglobin closely. Continue bowel motivation. Recheck labs in AM to monitor blood counts, electrolytes and renal function. DVT Prophylaxis: SCD's, Lovenox GI Prophylaxis: Protonix Resuscitation Status: Full Code - Time spent with patient Time with patient PN: 30 minutes - Physician Narrative Physician: Tara Adams MD Narrative: Date: 07/16/18 Time: 2240 I have independently evaluated and examined this patient. I reviewed the chart, the patient's history, and the AMBULANCE PARAMEDIC/PA's documented findings as above. We discussed and formulated the assessment and plan as above with additions as below: Marian was in good spirits when seen this afternoon. She reports that she felt stronger after the blood transfusion and that she was able to walk more comfortably following transfusion. She continues to require oxygen at 7-8 L but did not require BiPAP last night. She has not yet had a bowel movement and continues to complain of "just gas". NAD, alert, talkative Respirations nonlabored, crackles at the right base laterally, no wheezing Posttransfusion hemoglobin 8.0; anemia likely due to chronic blood loss given known history of polyposis. Stool guaiacs pending. Hemoglobin electrophoresis pending due to marked microcytosis without iron deficiency. Bicarbonate climbing-ABG in the morning; maybe due to contraction alkalosis. Diuretics on hold. Azithromycin discontinued-has completed 5 days between IV/oral treatment thus far. Chest x-ray today reviewed by myself demonstrating resolving right-sided pneumonia; does not appear volume overloaded, no pleural effusions. Dr. Irwin consulted due to persistent significant hypoxia, discussed with pulmonary. Hospital Course Summary Disclaimer: The visit summary below is not to be considered part of the above Progress Note. Hospital Course: 07/12/2018 Patient admitted to CCU with acute hypoxemic respiratory failure. ABG requested. Prolactin elevated at 53 although lactic acid was 1.7. We will recheck lactic acid in 6 hours. Patient received 1 L IV fluid normal saline bolus in the emergency room. Started on IV fluids normal saline at 100 mL per hour for 1 L and thereafter will decrease to 75 mL per hour. Respiratory panel shows positive mycoplasma pneumoniae PCR. Blood culture 2, sputum culture, Legionella urine antigen results awaited. Antibiotic coverage with IV Rocephin 1 g daily and IV azithromycin 500 mg daily. DuoNeb 3 mL nebulization treatment every 6 hours scheduled. Albuterol 0.083% nebulization every 2 hours as needed for wheezing or shortness of breath. Cautious IV fluid replacement in the context of concern for underlying CHF. BNP 53312. Echocardiogram ordered next available. Serum troponin 0.157, likely secondary to demand ischemia. Repeat EKG and cardiac enzymes every 6 hours 2 ordered. We will continue home medication levothyroxine, ziprasidone, fluoxetine. Patient placed on 3 g salt, mechanical soft diet with nectar thickened liquids. We will advance diet as tolerated. Tylenol 650 mg by mouth every 5 hours as needed for mild pain or fever. IV morphine 12 milligram every 2 hours as needed for severe pain. Patient reportedly had appointment for repeat colonoscopy last week with Dr. Albright but missed her appointment as she was feeling sick. Will need appointment rescheduled at the time of discharge. 07/13/2018 Patient admitted to CCU with acute hypoxemic respiratory failure. ABG performed after admission on 07/12/2018 on BiPAP 15/5 cm H2O with FiO2 50% shows pH 7.496 , PCO2 33, PO2 120, HCO3 33 with oxygen saturation 99%. Lactic acid 1.7 on admission, later on decreased slightly to 1.5. Patient has +4 L fluid balance along with 1.5 KG weight gain from admission. IV fluid rate decreased to 30 mL per hour. BNP 40002 on admission, 1989 today. Echocardiogram ordered next available. Patient started on IV Lasix 40 mg twice a day. Will closely monitor intake and output, daily weights. Respiratory panel shows positive mycoplasma pneumoniae PCR. Legionella urine antigen negative. Blood culture 2, sputum culture results awaited. Antibiotic coverage with IV Rocephin 1 g daily and IV azithromycin 500 mg daily. DuoNeb 3 mL nebulization treatment every 6 hours scheduled. Albuterol 0.083% nebulization every 2 hours as needed for wheezing or shortness of breath. We will provide BiPAP 15/5 cm H2O with FiO2 50% continuously at nighttime. Alternating with high flow nasal cannula 68 liters as needed to maintain oxygen saturations more than 90% during daytime. Serum troponin 0.157, repeat serum troponin improved to 0.115. Likely secondary to demand ischemia. 07/14/18 Day 3 antibiotics for mycoplasma pneumonia; patient describes clearing sputum and feeling less short of breath with treatment. Continue ceftriaxone, azithromycin and switch to oral administration to complete 5 day course. Oxygen being titrated-decreased from 10 L to 6 L while awake; continues to require BiPAP at night. Continue diuresis, proBNP approaching normal. Renal function and hepatic function have improved with adequate oxygenation and diuresis. Potassium being replaced orally. 07/15/18 Day 4 antibiotics for mycoplasma pneumonia; continue ceftriaxone, azithromycin and switch to oral administration to complete 5 day course. Chest x-ray in a.m. On 6 L oxygen earlier in the day but has been titrated back to 10 L this evening ; resume BiPAP this evening. Oxygen demand seems excessive at this point in the hospital course. Continue diuresis with oral potassium replacement. Echocardiogram with EF 65%, normal diastolic function, no significant valve disease, PAP 26 mm. Microcytic anemia however patient is not iron deficient by studies obtained today. Hemoglobin electrophoresis will be sent 07/16/18 Day 5 antibiotics for mycoplasma pneumonia - continue ceftriaxone IV and azithromycin PO--> completed 5 days of azithromycin, discontinued. CXR this AM - pending. On 6 L oxygen currently and breathing easily. Only on NC during the night - did not use Bipap. Hgb 6.5 this morning. Will give 1 unit PRBC now and recheck hgb following transfusion. CO2 trending up (42 today). SCr and BUN stable. Continue adequate oxygenation. >3L urinary output daily via hoffman. Weight slowly tending down and BNP trending down. Continue diuresis. Consider decreasing to Lasix dosing to avoid over diuresis. K+ 3.5. Continue KCl 40 mEq po BID. Will give additional KCl 20 meq po this AM. Continue to monitor. Microcytic anemia however patient is not iron deficient by studies obtained 07/15. Hemoglobin electrophoresis will be sent. No signs of bleeding. Continue to monitor hemoglobin closely. Continue bowel motivation. Recheck labs in AM to monitor blood counts, electrolytes and renal function.
[2018-07-16] MEDS: CEFTRIAXONE 1 G in NS 100 ML IV SCH (08:35)
[2018-07-16] MEDS: AZITHROMYCIN 500 MG TABLET PO SCH (08:36)
[2018-07-16] MEDS: ZIPRASIDONE 20 MG CAPSULE PO SCH (08:37)
[2018-07-16] MEDS: SENNA + DOCUSATE TABLET PO SCH ×2 (08:37→20:56)
[2018-07-16] MEDS: POLYETHYL GLYCOL 3350 17gm PACKET PO SCH (08:38)
[2018-07-16] MEDS: ENOXAPARIN 40 MG/0.4 ML INJECTION SQ SCH (08:40)
--- NOTE | 2018-07-16 09:02 | XRay Report ---
INDICATION: pneumonia PROCEDURE: CHEST 2-VIEWS UPRIGHT (PA & LAT) Encounter: Initial COMPARISON: July 13, 2018 FINDINGS: Airspace disease is slightly improved on the right lung with a mild amount remaining in the right base. Upper lung dodson are clear. No pneumothorax or effusion. Heart size and mediastinal contours are stable. Pulmonary vascularity appears normal. Impression: Slowly improving pneumonia. .
--- NOTE | 2018-07-16 09:49 | Pulmonology Consult Note ---
<Amaris Mclean - Last Filed: 07/16/18 15:29> History of Present Illness Consult date: 07/16/18 Reason for consult: hypoxemia Chief complaint: SOB, cough History of present illness: This is a 52 yo female who presented to the emergency room with approximately 10 day history of upper respiratory symptoms including cough with greenish sputum that gradually worsened causing her shortness. On the day of admit she presented to the emergency room and was noted to have WBC count 39,200 with left shift. Lactic acid 1.7 and prolactin elevated at 53. Patient also requiring high flow nasal cannula oxygen at 10 L and later on required BiPAP noninvasive ventilation to maintain oxygen saturations. CXR showed bibasilar infiltrates and she was started on antibiotics, currently on azithromycin and rocephin, sputum cx not received, legionella NTD, BC NTD, RVP + for mycoplasma pneumoniae. Overall her pneumonia has improved radiographically but she has remained hypoxic even after diuresis and antibiotic treatment. WBC today 12.9 and she remains afebrile. We have been consulted for her continued hypoxia and appreciate the consult. Review of Systems - Constitutional Constitutional: Present: fatigue - EENT Eyes: Present: as per HPI Nose: Present: as per HPI Mouth/Throat: Present: mucosa moist - Cardiovascular Cardiovascular: Present: dyspnea on exertion - Respiratory Respiratory: Present: cough, dyspnea, wheezing - Gastrointestinal Gastrointestinal: Present: as per HPI - Genitourinary Genitourinary: Present: as per HPI Menstruation: as per HPI - Musculoskeletal Musculoskeletal: Present: as per HPI - Integumentary/Breasts Integumentary: Present: as per HPI - Neurological Neurological: Present: as per HPI - Psychiatric Psychiatric: Present: as per HPI - Endocrine Endocrine: Present: as per HPI - Hematologic/Lymphatic Hematologic/Lymphatic: Present: as per HPI - Allergic/Immunologic Allergic/Immunologic: Present: as per HPI [facility] Patient Stated Medical History Gastroesophageal Reflux Yes Disease Other Musculoskeletal Yes: ARTHRITIS Schizophrenia Yes: schizoaffective disorder Other Behavioral Health Yes: [facility] Medical History (Last Updated 07/12/18 @ 11:24 by Colleen Roberts MD) Schizoaffective disorder (Chronic Medical) Anxiety (Chronic Medical) History of adenomatous polyp of colon (Chronic Medical) Thyroid disease (Chronic Medical) GERD (gastroesophageal reflux disease) (Chronic Medical) Arthritis (Chronic Medical) Surgical History: Cholecystectomy. -colonoscopy 10 adenomatous polyps 03/28/2017 Family History: Family History (Last Updated 04/29/18 @ 12:03 by Antoinette Caldera Fernanda) Father Diabetes Brother Diabetes Family History Updates: No reported family history of coronary artery disease. - Social History Smoking status: Never smoker Substance use type: does not use Alcohol intake: never Alcohol intake frequency: does not drink Housing: assisted living facility Current residence: Apartment/Private Home Medications Home Medications Medication Instructions Recorded Confirmed Type Levothyroxine Sodium 1 tab PO DAILY #30 03/27/17 07/12/18 History Fluoxetine HCl [Prozac] 40 cap PO HS 07/12/18 07/12/18 History Paliperidone Palmitate [Invega 1 syringe Q90D 07/12/18 07/12/18 History Trinza] Ziprasidone HCl [Geodon] 20 mg PO DAILY 07/12/18 07/12/18 History Ziprasidone HCl [Geodon] 40 mg PO HS 07/12/18 07/12/18 History Allergies Allergy/AdvReac Type Severity Reaction Status Date / Time No Known Allergies Allergy Unverified 03/28/17 06:23 Exam Vital signs: Temperature 97.5 F 07/16/18 07:00 Pulse Rate 83 07/16/18 07:00 Respiratory Rate 24 07/16/18 07:22 Blood Pressure 134/83 07/16/18 07:00 Pulse Oximetry 91 07/16/18 07:22 - Constitutional mild distress, morbidly obese, cooperative - Routine HEENT Exam Head: Present: normocephalic, atraumatic Eye: Present: EOMI, PERRL ENT: Present: mucous membranes moist - Routine Neck Exam Present: supple, full ROM, trachea midline - Routine Respiratory Exam Present: decreased breath sounds, wheezes. Absent: accessory muscle use, patient mechanically ventilated - Routine Cardiovascular Exam Present: RRR, S1, S2, no murmur - Routine Abdominal Exam Present: soft, normoactive bowel sounds - Routine Extremities Exam Present: edema, non tender, full ROM. Absent: cyanosis, clubbing - Routine Back/Spine/Pelvis Exam Back/Spine: Present: full ROM - Routine Skin Exam Present: intact, dry - Routine Neurological Exam Present: alert, oriented X3, CN II-XII intact - Routine Psychiatric Exam Present: normal affect, normal thought process Results - Laboratory Findings CBC and BMP: 07/16/18 14:11 07/16/18 03:45 ABG ABG pH 7.496 (7.350-7.450) H 07/12/18 11:57 ABG pCO2 43 MMHG (34.0-45.0) 07/12/18 11:57 ABG pO2 120.9 MMHG (80.0-100.0) H 07/12/18 11:57 ABG O2 Saturation 99.0 % (95.0-98.0) H 07/12/18 11:57 PT/INR, D-dimer INR 1.39 (0.92-1.18) H 07/12/18 07:33 Abnormal lab findings: Abnormal Labs 07/12/18 07/12/18 07/12/18 07:33 07:42 07:44 WBC Corrected WBC RBC Hgb Hct MCV MCH MCHC RDW Std Deviation Plt Count Neutrophils % (Manual) Band Neutrophils % Lymphocytes % (Manual) Metamyelocytes % Myelocytes % Neutrophils # (Manual) Lymphocytes # (Manual) INR 1.39 H ABG pH ABG pO2 ABG HCO3 ABG Total CO2 ABG O2 Saturation ABG Base Excess Potassium Chloride Carbon Dioxide Anion Gap BUN Creatinine BUN/Creatinine Ratio Glucose Calculated Osmolality Calcium Magnesium Total Bilirubin AST ALT Alkaline Phosphatase Troponin I 0.157 H NT-Pro-B Natriuret Pep 67545 H Albumin Globulin Albumin/Globulin Ratio Prolactin M. pneumoniae (PCR) Detected A* Crossmatch ([facility]) 07/12/18 07/12/18 07/12/18 07:47 07:47 11:57 WBC 39.2 H* Corrected WBC RBC 3.57 L Hgb 8.6 L Hct 25.5 L MCV 71.4 L MCH 24.1 L MCHC RDW Std Deviation 34.5 L Plt Count 509 H Neutrophils % (Manual) 73.0 H Band Neutrophils % 18.0 H Lymphocytes % (Manual) 7.0 L Metamyelocytes % 1.0 H Myelocytes % 1.0 H Neutrophils # (Manual) 28.6 H Lymphocytes # (Manual) INR ABG pH 7.496 H ABG pO2 120.9 H ABG HCO3 33.0 H ABG Total CO2 34.3 H ABG O2 Saturation 99.0 H ABG Base Excess 8.9 H Potassium Chloride 94 L Carbon Dioxide 32 H Anion Gap BUN 56.0 H* Creatinine BUN/Creatinine Ratio 51 H Glucose 233 H Calculated Osmolality 289 H Calcium 8.3 L Magnesium Total Bilirubin 2.10 H AST 89 H ALT 81 H Alkaline Phosphatase 153 H Troponin I NT-Pro-B Natriuret Pep Albumin Globulin 3.7 H Albumin/Globulin Ratio 1.0 L Prolactin 53.3 H M. pneumoniae (PCR) Crossmatch ([facility]) 07/13/18 07/13/18 07/14/18 03:52 03:52 04:00 WBC 33.7 H* 24.9 H Corrected WBC 21.8 H RBC 3.13 L 3.08 L Hgb 7.6 L D 7.5 L Hct 23.5 L 23.6 L MCV 75.1 L 76.6 L MCH 24.3 L 24.4 L MCHC RDW Std Deviation 35.3 L Plt Count 433 H Neutrophils % (Manual) 96.0 H 72.0 H Band Neutrophils % Lymphocytes % (Manual) 4.0 L Metamyelocytes % Myelocytes % Neutrophils # (Manual) 32.4 H 15.7 H Lymphocytes # (Manual) 5.2 H INR ABG pH ABG pO2 ABG HCO3 ABG Total CO2 ABG O2 Saturation ABG Base Excess Potassium Chloride Carbon Dioxide 33 H Anion Gap BUN 30.0 H D Creatinine BUN/Creatinine Ratio 38 H Glucose 193 H Calculated Osmolality 288 H Calcium 8.0 L Magnesium 3.1 H Total Bilirubin 1.40 H AST 44 H D ALT 63 H Alkaline Phosphatase 128 H Troponin I NT-Pro-B Natriuret Pep 1990 H Albumin 3.2 L Globulin Albumin/Globulin Ratio 0.9 L Prolactin M. pneumoniae (PCR) Crossmatch ([facility]) 07/14/18 07/15/18 07/15/18 04:00 04:29 04:29 WBC 14.8 H D Corrected WBC 13.3 H RBC 2.83 L Hgb 6.8 L Hct 22.1 L MCV 78.1 L MCH 24.0 L MCHC 30.8 L RDW Std Deviation Plt Count Neutrophils % (Manual) 73.0 H Band Neutrophils % 7.0 H D Lymphocytes % (Manual) 18.0 L Metamyelocytes % Myelocytes % Neutrophils # (Manual) 9.7 H Lymphocytes # (Manual) INR ABG pH ABG pO2 ABG HCO3 ABG Total CO2 ABG O2 Saturation ABG Base Excess Potassium 3.3 L Chloride 96 L 97 L Carbon Dioxide 35 H 36 H Anion Gap BUN 24.0 H 18.0 H Creatinine 0.6 L BUN/Creatinine Ratio 34 H 30 H Glucose 125 H 142 H Calculated Osmolality Calcium 7.1 L D 7.0 L Magnesium 2.5 H D Total Bilirubin 1.60 H AST 41 H ALT 55 H Alkaline Phosphatase Troponin I NT-Pro-B Natriuret Pep 688 H Albumin 3.1 L Globulin Albumin/Globulin Ratio 0.9 L Prolactin M. pneumoniae (PCR) Crossmatch ([facility]) 07/15/18 07/15/18 07/16/18 09:43 09:43 03:45 WBC 12.9 H Corrected WBC RBC 2.80 L Hgb 7.7 L D 6.5 L D Hct 25.3 L D 22.4 L D MCV MCH 23.2 L MCHC 29.0 L RDW Std Deviation Plt Count Neutrophils % (Manual) 81.0 H Band Neutrophils % Lymphocytes % (Manual) 13.0 L Metamyelocytes % 2.0 H Myelocytes % Neutrophils # (Manual) 10.4 H Lymphocytes # (Manual) INR ABG pH ABG pO2 ABG HCO3 ABG Total CO2 ABG O2 Saturation ABG Base Excess Potassium Chloride Carbon Dioxide Anion Gap BUN Creatinine BUN/Creatinine Ratio Glucose Calculated Osmolality Calcium Magnesium Total Bilirubin AST ALT Alkaline Phosphatase Troponin I NT-Pro-B Natriuret Pep Albumin Globulin Albumin/Globulin Ratio Prolactin M. pneumoniae (PCR) Crossmatch ([facility]) See Detail 07/16/18 03:45 WBC Corrected WBC RBC Hgb Hct MCV MCH MCHC RDW Std Deviation Plt Count Neutrophils % (Manual) Band Neutrophils % Lymphocytes % (Manual) Metamyelocytes % Myelocytes % Neutrophils # (Manual) Lymphocytes # (Manual) INR ABG pH ABG pO2 ABG HCO3 ABG Total CO2 ABG O2 Saturation ABG Base Excess Potassium 3.5 L Chloride Carbon Dioxide 42 H* Anion Gap 3 L BUN 18.0 H Creatinine 0.5 L BUN/Creatinine Ratio 36 H Glucose 141 H Calculated Osmolality Calcium 7.5 L Magnesium Total Bilirubin AST ALT Alkaline Phosphatase Troponin I NT-Pro-B Natriuret Pep Albumin Globulin Albumin/Globulin Ratio Prolactin M. pneumoniae (PCR) Crossmatch ([facility]) - Diagnostic Findings Chest x-ray: image reviewed (Improving bilateral infiltrates) Assessment and Plan (1) Acute respiratory failure with hypoxia Status: Acute Assessment and plan: Pt currently on 7L per NC and tolerating. Not on O2 at home. States she didn't use thhe bipap last noc and did well. Last Co2 per lab was 42 but likely due to diuresis as was previously noted as 32. Wheezing noted, on A/A QID, will start pulmicort BID with a burst of steroids. primary checking a D-dimer. Current Visit: Yes (2) Mycoplasma pneumonia Status: Acute Assessment and plan: Currently on Azithro/rocephin per primary, CXR improved bilateral infiltrates noted. Current Visit: Yes - Time Spent With Patient Total time spent is greater than 50% in coordination of care (as documented) at patient's floor/unit and/or counseling patient: 25 - 35 minutes <Sven Irwin - Last Filed: 07/17/18 11:20> [facility] Patient Stated Medical History Gastroesophageal Reflux Yes Disease Other Musculoskeletal Yes: ARTHRITIS Schizophrenia Yes: schizoaffective disorder Other Behavioral Health Yes: [facility] Medical History (Last Updated 07/12/18 @ 11:24 by Colleen Roberts MD) Schizoaffective disorder (Chronic Medical) Anxiety (Chronic Medical) History of adenomatous polyp of colon (Chronic Medical) Thyroid disease (Chronic Medical) GERD (gastroesophageal reflux disease) (Chronic Medical) Arthritis (Chronic Medical) Family History: Family History (Last Updated 04/29/18 @ 12:03 by SYDNIE Thomas) Father Diabetes Brother Diabetes Exam Vital signs: Temperature 96.2 F L 07/17/18 07:00 Pulse Rate 76 07/17/18 07:00 Respiratory Rate 22 07/17/18 10:50 Blood Pressure 125/86 07/17/18 07:00 Pulse Oximetry 95 07/17/18 10:50 Results - Laboratory Findings CBC and BMP: 07/17/18 03:45 07/17/18 03:45 ABG ABG pH 7.439 (7.350-7.450) 07/17/18 04:12 ABG pCO2 60 MMHG (34.0-45.0) H* 07/17/18 04:12 ABG pO2 66.3 MMHG (80.0-100.0) L 07/17/18 04:12 ABG O2 Saturation 92.7 % (95.0-98.0) L 07/17/18 04:12 PT/INR, D-dimer INR 1.39 (0.92-1.18) H 07/12/18 07:33 D-Dimer 997 NG/ML (0-230) H 07/16/18 14:11 Abnormal lab findings: Abnormal Labs 07/12/18 07/12/18 07/12/18 07:33 07:42 07:44 WBC Corrected WBC RBC Hgb Hct MCV MCH MCHC RDW Std Deviation Plt Count Neutrophils % (Manual) Band Neutrophils % Lymphocytes % (Manual) Metamyelocytes % Myelocytes % Neutrophils # (Manual) Lymphocytes # (Manual) Plasma Cells INR 1.39 H D-Dimer ABG pH ABG pCO2 ABG pO2 ABG HCO3 ABG Total CO2 ABG O2 Saturation ABG Base Excess Potassium Chloride Carbon Dioxide Anion Gap BUN Creatinine BUN/Creatinine Ratio Glucose Calculated Osmolality Calcium Magnesium Total Bilirubin AST ALT Alkaline Phosphatase Troponin I 0.157 H NT-Pro-B Natriuret Pep 58143 H Albumin Globulin Albumin/Globulin Ratio Prolactin M. pneumoniae (PCR) Detected A* Crossmatch ([facility]) 07/12/18 07/12/18 07/12/18 07:47 07:47 11:57 WBC 39.2 H* Corrected WBC RBC 3.57 L Hgb 8.6 L Hct 25.5 L MCV 71.4 L MCH 24.1 L MCHC RDW Std Deviation 34.5 L Plt Count 509 H Neutrophils % (Manual) 73.0 H Band Neutrophils % 18.0 H Lymphocytes % (Manual) 7.0 L Metamyelocytes % 1.0 H Myelocytes % 1.0 H Neutrophils # (Manual) 28.6 H Lymphocytes # (Manual) Plasma Cells INR D-Dimer ABG pH 7.496 H ABG pCO2 ABG pO2 120.9 H ABG HCO3 33.0 H ABG Total CO2 34.3 H ABG O2 Saturation 99.0 H ABG Base Excess 8.9 H Potassium Chloride 94 L Carbon Dioxide 32 H Anion Gap BUN 56.0 H* Creatinine BUN/Creatinine Ratio 51 H Glucose 233 H Calculated Osmolality 289 H Calcium 8.3 L Magnesium Total Bilirubin 2.10 H AST 89 H ALT 81 H Alkaline Phosphatase 153 H Troponin I NT-Pro-B Natriuret Pep Albumin Globulin 3.7 H Albumin/Globulin Ratio 1.0 L Prolactin 53.3 H M. pneumoniae (PCR) Crossmatch ([facility]) 07/13/18 07/13/18 07/14/18 03:52 03:52 04:00 WBC 33.7 H* 24.9 H Corrected WBC 21.8 H RBC 3.13 L 3.08 L Hgb 7.6 L D 7.5 L Hct 23.5 L 23.6 L MCV 75.1 L 76.6 L MCH 24.3 L 24.4 L MCHC RDW Std Deviation 35.3 L Plt Count 433 H Neutrophils % (Manual) 96.0 H 72.0 H Band Neutrophils % Lymphocytes % (Manual) 4.0 L Metamyelocytes % Myelocytes % Neutrophils # (Manual) 32.4 H 15.7 H Lymphocytes # (Manual) 5.2 H Plasma Cells INR D-Dimer ABG pH ABG pCO2 ABG pO2 ABG HCO3 ABG Total CO2 ABG O2 Saturation ABG Base Excess Potassium Chloride Carbon Dioxide 33 H Anion Gap BUN 30.0 H D Creatinine BUN/Creatinine Ratio 38 H Glucose 193 H Calculated Osmolality 288 H Calcium 8.0 L Magnesium 3.1 H Total Bilirubin 1.40 H AST 44 H D ALT 63 H Alkaline Phosphatase 128 H Troponin I NT-Pro-B Natriuret Pep 1990 H Albumin 3.2 L Globulin Albumin/Globulin Ratio 0.9 L Prolactin M. pneumoniae (PCR) Crossmatch ([facility]) 07/14/18 07/15/18 07/15/18 04:00 04:29 04:29 WBC 14.8 H D Corrected WBC 13.3 H RBC 2.83 L Hgb 6.8 L Hct 22.1 L MCV 78.1 L MCH 24.0 L MCHC 30.8 L RDW Std Deviation Plt Count Neutrophils % (Manual) 73.0 H Band Neutrophils % 7.0 H D Lymphocytes % (Manual) 18.0 L Metamyelocytes % Myelocytes % Neutrophils # (Manual) 9.7 H Lymphocytes # (Manual) Plasma Cells INR D-Dimer ABG pH ABG pCO2 ABG pO2 ABG HCO3 ABG Total CO2 ABG O2 Saturation ABG Base Excess Potassium 3.3 L Chloride 96 L 97 L Carbon Dioxide 35 H 36 H Anion Gap BUN 24.0 H 18.0 H Creatinine 0.6 L BUN/Creatinine Ratio 34 H 30 H Glucose 125 H 142 H Calculated Osmolality Calcium 7.1 L D 7.0 L Magnesium 2.5 H D Total Bilirubin 1.60 H AST 41 H ALT 55 H Alkaline Phosphatase Troponin I NT-Pro-B Natriuret Pep 688 H Albumin 3.1 L Globulin Albumin/Globulin Ratio 0.9 L Prolactin M. pneumoniae (PCR) Crossmatch ([facility]) 07/15/18 07/15/18 07/16/18 09:43 09:43 03:45 WBC 12.9 H Corrected WBC RBC 2.80 L Hgb 7.7 L D 6.5 L D Hct 25.3 L D 22.4 L D MCV MCH 23.2 L MCHC 29.0 L RDW Std Deviation Plt Count Neutrophils % (Manual) 81.0 H Band Neutrophils % Lymphocytes % (Manual) 13.0 L Metamyelocytes % 2.0 H Myelocytes % Neutrophils # (Manual) 10.4 H Lymphocytes # (Manual) Plasma Cells INR D-Dimer ABG pH ABG pCO2 ABG pO2 ABG HCO3 ABG Total CO2 ABG O2 Saturation ABG Base Excess Potassium Chloride Carbon Dioxide Anion Gap BUN Creatinine BUN/Creatinine Ratio Glucose Calculated Osmolality Calcium Magnesium Total Bilirubin AST ALT Alkaline Phosphatase Troponin I NT-Pro-B Natriuret Pep Albumin Globulin Albumin/Globulin Ratio Prolactin M. pneumoniae (PCR) Crossmatch ([facility]) See Detail 07/16/18 07/16/18 07/16/18 03:45 14:11 14:11 WBC Corrected WBC RBC Hgb 8.0 L D Hct MCV MCH MCHC RDW Std Deviation Plt Count Neutrophils % (Manual) Band Neutrophils % Lymphocytes % (Manual) Metamyelocytes % Myelocytes % Neutrophils # (Manual) Lymphocytes # (Manual) Plasma Cells INR D-Dimer 997 H ABG pH ABG pCO2 ABG pO2 ABG HCO3 ABG Total CO2 ABG O2 Saturation ABG Base Excess Potassium 3.5 L Chloride Carbon Dioxide 42 H* Anion Gap 3 L BUN 18.0 H Creatinine 0.5 L BUN/Creatinine Ratio 36 H Glucose 141 H Calculated Osmolality Calcium 7.5 L Magnesium Total Bilirubin AST ALT Alkaline Phosphatase Troponin I NT-Pro-B Natriuret Pep Albumin Globulin Albumin/Globulin Ratio Prolactin M. pneumoniae (PCR) Crossmatch ([facility]) 07/17/18 07/17/18 07/17/18 03:45 03:45 04:12 WBC 15.0 H Corrected WBC RBC 2.86 L Hgb 7.1 L D Hct 23.6 L MCV MCH 24.8 L MCHC 30.1 L RDW Std Deviation Plt Count Neutrophils % (Manual) 74.0 H Band Neutrophils % Lymphocytes % (Manual) 16.0 L Metamyelocytes % 1.0 H Myelocytes % Neutrophils # (Manual) 11.1 H Lymphocytes # (Manual) Plasma Cells 1.0 H INR D-Dimer ABG pH ABG pCO2 60 H* ABG pO2 66.3 L ABG HCO3 40.8 H ABG Total CO2 42.6 H ABG O2 Saturation 92.7 L ABG Base Excess 14.8 H Potassium Chloride Carbon Dioxide 39 H Anion Gap BUN 19.0 H Creatinine 0.6 L BUN/Creatinine Ratio 32 H Glucose 135 H Calculated Osmolality 281 H Calcium 7.9 L Magnesium 2.6 H Total Bilirubin AST ALT Alkaline Phosphatase Troponin I NT-Pro-B Natriuret Pep Albumin 3.1 L Globulin Albumin/Globulin Ratio 0.9 L Prolactin M. pneumoniae (PCR) Crossmatch ([facility]) Assessment and Plan (1) Mycoplasma pneumonia Status: Acute Assessment and plan: Associated with significant wheeze. Recommend complete PFT Current Visit: Yes (2) Respiratory failure with hypoxia Status: Acute Current Visit: Yes - Time Spent With Patient Total time spent is greater than 50% in coordination of care (as documented) at patient's floor/unit and/or counseling patient:
[2018-07-16] MEDS: BUDESONIDE INH.SOLN 0.5mg/2ml NEB AEROSOL SCH ×2 (11:34→18:50)
[2018-07-16] MEDS: PredniSONE 20 MG TABLET PO SCH (11:51)
[2018-07-16] MEDS: FLUoxetine 20 MG CAPSULE PO SCH (20:57)
[2018-07-16] MEDS: ZIPRASIDONE 40 MG CAPSULE PO SCH (20:57)
[2018-07-16] MEDS: GUAIFENESIN/DM 5ml ORAL LIQUID PO PRN (22:10)
[2018-07-16] MEDS: MAG-AL + SIM ORAL LIQUID 30ml PO PRN (22:10)
[2018-07-17] MEDS: LEVOTHYROXINE 75 MCG TABLET PO SCH (05:43)
[2018-07-17] MEDS: ALBUTEROL/IPRATROPIUM 2.5mg-0.5mg/3ml NEB AEROSOL SCH ×4 (07:48→18:47)
[2018-07-17] MEDS: BUDESONIDE INH.SOLN 0.5mg/2ml NEB AEROSOL SCH ×2 (07:48→18:47)
[2018-07-17] MEDS: POLYETHYL GLYCOL 3350 17gm PACKET PO SCH (09:05)
[2018-07-17] MEDS: ENOXAPARIN 40 MG/0.4 ML INJECTION SQ SCH (09:05)
[2018-07-17] MEDS: SENNA + DOCUSATE TABLET PO SCH ×2 (09:06→21:01)
[2018-07-17] MEDS: CEFTRIAXONE 1 G in NS 100 ML IV SCH (09:07)
[2018-07-17] MEDS: PredniSONE 20 MG TABLET PO SCH (09:07)
[2018-07-17] MEDS: NS 1,000 ML IV SCH (09:08)
[2018-07-17] MEDS: ZIPRASIDONE 20 MG CAPSULE PO SCH (09:12)
--- NOTE | 2018-07-17 14:37 | Progress Note ---
- Date 07/17/18 Subjective: Marian is seen this afternoon while resting in bed. She is breathing easily on NC at 7L and denies any chest pain, shortness of breath, abdominal pain, nausea, vomiting or dysuria. She reports that she is feeling better each day. She received 1 unit of PRBC yesterday, 07/16/18 with improvement of her hemoglobin to 8.0 but is is back down to 7.1 this morning. She remains asymptomatic, afebrile and has completed her course of azithromycin, though remains on ceftriaxone. She was seen and evaluated by Dr. Irwin, pulmonology , who recommended continuation with DuoNeb treatments and the addition of Pulmicort BID as well as short burst of steroid (prednisone 40mg daily x 5 days ) with PFT testing in the near future to assess her asthma. Her appetite remains good and she continues to pass gas but has not had a BM yet. Objective Vital signs: Temperature 96.8 F 07/17/18 11:40 Pulse Rate 83 07/17/18 11:40 Respiratory Rate 20 07/17/18 11:40 Blood Pressure 143/71 H 07/17/18 11:40 Pulse Oximetry 93 07/17/18 11:40 Rhythm: Normal Sinus Rhythm Height/Weight/BMI: Height 5 ft 4 in Weight 277 lb 12.519 oz Body Mass Index 46.0 Comments: Resting in bed; awakens easily with soft voice stimuli. Very cheerful and pleasant. Breathing easily on 7L NC without cough. - Constitutional Present: no acute distress, well nourished, well developed, morbidly obese, cooperative - Routine HEENT Exam Head: Present: normocephalic, atraumatic Eye: Present: PERRL. Absent: conjunctival icterus ENT: Present: oropharynx clear - Routine Respiratory Exam Present: decreased breath sounds, prolonged expiratory phase, wheezes ( expiratory) - Routine Cardiovascular Exam Present: RRR, S1, S2 - Routine Abdominal Exam Present: soft, normoactive bowel sounds, non tender Comments: Obese - Routine Extremities Exam Present: edema (2+ bilaterally), pulses intact - Routine Back/Spine/Pelvis Exam Back/Spine: Present: full ROM. Absent: vertebral tenderness - Routine Musculoskeletal Exam Musculoskeletal: Present: no clubbing or cyanosis, moving extremities well - Routine Skin Exam Present: intact, dry, warm Comments: Afebrile - Routine Neurological Exam Present: alert, oriented X3, moving all extremities, hearing grossly intact, normal speech - Routine Psychiatric Exam Present: cooperative Results - Labs CBC & Chem 7: 07/17/18 03:45 07/17/18 03:45 Labs: Hemoglobin improved to 8.0 following 1 unit PRBC on 07/16/18 --> decreased to 7.1 today. Asymptomatic. WBC increased to 15.0 with 74% neutrophils and 5% bands - most likely secondary to steroid effect. Afebrile. Mild hypomagnesium - 2.6. Microbiology Results: Microbiology 07/12/18 07:43 Peripheral/Iv Start Blood Culture - Final No Growth After 5 Days 07/12/18 07:47 Peripheral/Iv Start Blood Culture - Final No Growth After 5 Days 07/12/18 11:09 Urine Legionella Urinary Antigen - Final - ABG Interpretation Attestation: I reviewed and interpreted this ABG. ABG results: 07/17/18 04:12 ABG pH 7.439 ABG pCO2 60 H* ABG pO2 66.3 L ABG HCO3 40.8 H ABG Total CO2 42.6 H ABG O2 Saturation 92.7 L ABG Base Excess 14.8 H Interpretation: abnormal, respiratory acidosis, metabolic alkalosis Additional comments: ABG obtained while patient on BiPAP Assessment and Plan (1) Mycoplasma pneumonia Current visit: Yes Status: Acute (2) Acute respiratory failure with hypoxia Current visit: Yes Status: Acute Assessment and Plan: Assessment: Acute hypoxemic respiratory failure. Sepsis, originating from pneumonia. Bilateral lower lobe pneumonia, positive mycoplasma pneumoniae PCR Acute renal insufficiency, likely secondary to dehydration, resolved Anemia (POA). Schizoaffective disorder Anxiety Hypothyroidism GERD History of adenomatous polyposis of colon, 17 polyps noted on previous colonoscopy 03/28/2017. Osteoarthritis Morbid obesity, BMI 46 Hypokalemia-07/14/18 Plan: Mycoplasma pneumonia - azithromycin course complete and discontinued on . Will continue ceftriaxone for antimicrobial coverage. Patient remains afebrile. CXR on 07/16/18 showed slowly improving pneumonia. Patient continues to require significant oxygen supplementation at 7L per NC. Recommend continuing to encourage patient to utilize BiPAP while sleeping given abnormal ABG. Seen by Dr. Irwin (pul) - recommended continuation of nebulized treatments with the addition of Pulmicort BID and a short burst of prednisone 40mg daily x 5 days. PFT testing recommended as well. Continue oxygen as needed to maintain SAO2 >90%, weaning as able. Patient does not use home oxygen. D-dimer elevated at 997. Will discuss obtaining CTA chest to evaluate for PE with Dr. Carter. Hemoglobin improved to 8.0 following PRBC x 1 unit on 07/16/18. Decreased to 7.1 today. Asymptomatic. Continue to monitor closely. Anticipate will require additional PRBC. Still awaiting stool guaiacs. Hemoglobin electrophoresis pending due to marked microcytosis without iron deficiency. Anemia likely due to chronic blood loss given known history of polyposis. Continue bowel motivation. Bicarbonate slowly trending down. Diuretics remain on hold. Weight up from admission but remains stable. Will recheck labs in AM to monitor blood counts, electrolytes and renal function. DVT Prophylaxis: SCD's, Lovenox Resuscitation Status: Full Code External Problems Reviewed(CCD)?: No - Time spent with patient Time with patient PN: 30 minutes - Physician Narrative Physician: Carter Carter MD Narrative: Date: 07/17/18 Time: 1431 I have independently evaluated and examined this patient. I reviewed the chart, the patient's history, and the NET COORDINATOR/PA's documented findings as above. We discussed and formulated the assessment and plan as above with additions as below: Patient resting comfortably. Says new breathing treatment is helping and that she is coughing more. Says her breathing is OK and she walked in the boothe with therapy. She says her appetite is good. One small stool recorded for today. NAD. RRR. Few crackles at the bases, no use of accessory muscles. s/nt/nd. No edema Continues on 7L. Pulmicort and prednisone added by pulm. Will check CTA given elevated d-dimer and continuing hypoxia. Blood gas reviewed. pCO2 of 60 with pH 7.43 suggest chronic respiratory failure. Continue NIPPV and consider for home use. Hgb down to 7.1. Will recheck and transfuse if <7 Hospital Course Summary Disclaimer: The visit summary below is not to be considered part of the above Progress Note. Hospital Course: 07/12/2018 Patient admitted to CCU with acute hypoxemic respiratory failure. ABG requested. Prolactin elevated at 53 although lactic acid was 1.7. We will recheck lactic acid in 6 hours. Patient received 1 L IV fluid normal saline bolus in the emergency room. Started on IV fluids normal saline at 100 mL per hour for 1 L and thereafter will decrease to 75 mL per hour. Respiratory panel shows positive mycoplasma pneumoniae PCR. Blood culture 2, sputum culture, Legionella urine antigen results awaited. Antibiotic coverage with IV Rocephin 1 g daily and IV azithromycin 500 mg daily. DuoNeb 3 mL nebulization treatment every 6 hours scheduled. Albuterol 0.083% nebulization every 2 hours as needed for wheezing or shortness of breath. Cautious IV fluid replacement in the context of concern for underlying CHF. BNP 48627. Echocardiogram ordered next available. Serum troponin 0.157, likely secondary to demand ischemia. Repeat EKG and cardiac enzymes every 6 hours 2 ordered. We will continue home medication levothyroxine, ziprasidone, fluoxetine. Patient placed on 3 g salt, mechanical soft diet with nectar thickened liquids. We will advance diet as tolerated. Tylenol 650 mg by mouth every 5 hours as needed for mild pain or fever. IV morphine 12 milligram every 2 hours as needed for severe pain. Patient reportedly had appointment for repeat colonoscopy last week with Dr. Albright but missed her appointment as she was feeling sick. Will need appointment rescheduled at the time of discharge. 07/13/2018 Patient admitted to CCU with acute hypoxemic respiratory failure. ABG performed after admission on 07/12/2018 on BiPAP 15/5 cm H2O with FiO2 50% shows pH 7.496 , PCO2 33, PO2 120, HCO3 33 with oxygen saturation 99%. Lactic acid 1.7 on admission, later on decreased slightly to 1.5. Patient has +4 L fluid balance along with 1.5 KG weight gain from admission. IV fluid rate decreased to 30 mL per hour. BNP 52413 on admission, 1990 today. Echocardiogram ordered next available. Patient started on IV Lasix 40 mg twice a day. Will closely monitor intake and output, daily weights. Respiratory panel shows positive mycoplasma pneumoniae PCR. Legionella urine antigen negative. Blood culture 2, sputum culture results awaited. Antibiotic coverage with IV Rocephin 1 g daily and IV azithromycin 500 mg daily. DuoNeb 3 mL nebulization treatment every 6 hours scheduled. Albuterol 0.083% nebulization every 2 hours as needed for wheezing or shortness of breath. We will provide BiPAP 15/5 cm H2O with FiO2 50% continuously at nighttime. Alternating with high flow nasal cannula 68 liters as needed to maintain oxygen saturations more than 90% during daytime. Serum troponin 0.157, repeat serum troponin improved to 0.115. Likely secondary to demand ischemia. 07/14/18 Day 3 antibiotics for mycoplasma pneumonia; patient describes clearing sputum and feeling less short of breath with treatment. Continue ceftriaxone, azithromycin and switch to oral administration to complete 5 day course. Oxygen being titrated-decreased from 10 L to 6 L while awake; continues to require BiPAP at night. Continue diuresis, proBNP approaching normal. Renal function and hepatic function have improved with adequate oxygenation and diuresis. Potassium being replaced orally. 07/15/18 Day 4 antibiotics for mycoplasma pneumonia; continue ceftriaxone, azithromycin and switch to oral administration to complete 5 day course. Chest x-ray in a.m. On 6 L oxygen earlier in the day but has been titrated back to 10 L this evening ; resume BiPAP this evening. Oxygen demand seems excessive at this point in the hospital course. Continue diuresis with oral potassium replacement. Echocardiogram with EF 65%, normal diastolic function, no significant valve disease, PAP 26 mm. Microcytic anemia however patient is not iron deficient by studies obtained today. Hemoglobin electrophoresis will be sent 07/16/18 Day 5 antibiotics for mycoplasma pneumonia - continue ceftriaxone IV and azithromycin PO--> completed 5 days of azithromycin, discontinued. CXR this AM - pending. On 6 L oxygen currently and breathing easily. Only on NC during the night - did not use Bipap. Hgb 6.5 this morning. Will give 1 unit PRBC now and recheck hgb following transfusion. CO2 trending up (42 today). SCr and BUN stable. Continue adequate oxygenation. >3L urinary output daily via hoffman. Weight slowly tending down and BNP trending down. Continue diuresis. Consider decreasing to Lasix dosing to avoid over diuresis. K+ 3.5. Continue KCl 40 mEq po BID. Will give additional KCl 20 meq po this AM. Continue to monitor. Microcytic anemia however patient is not iron deficient by studies obtained 07/15. Hemoglobin electrophoresis will be sent. No signs of bleeding. Continue to monitor hemoglobin closely. Continue bowel motivation. Recheck labs in AM to monitor blood counts, electrolytes and renal function. 07/17/18 Mycoplasma pneumonia - azithromycin course complete and discontinued on . Will continue ceftriaxone for antimicrobial coverage. Patient remains afebrile. CXR on 07/16/18 showed slowly improving pneumonia. Patient continues to require significant oxygen supplementation at 7L per NC. Recommend continuing to encourage patient to utilize BiPAP while sleeping given abnormal ABG. Seen by Dr. Irwin (pul) - recommended continuation of nebulized treatments with the addition of Pulmicort BID and a short burst of prednisone 40mg daily x 5 days. PFT testing recommended as well. Continue oxygen as needed to maintain SAO2 >90%, weaning as able. Patient does not use home oxygen. D-dimer elevated at 997. Will discuss obtaining CTA chest to evaluate for PE with Dr. Carter. Hemoglobin improved to 8.0 following PRBC x 1 unit on 07/16/18. Decreased to 7.1 today. Asymptomatic. Continue to monitor closely. Anticipate will require additional PRBC. Still awaiting stool guaiacs. Hemoglobin electrophoresis pending due to marked microcytosis without iron deficiency. Anemia likely due to chronic blood loss given known history of polyposis. Continue bowel motivation. Bicarbonate slowly trending down. Diuretics remain on hold. Weight up from admission but remains stable. Will recheck labs in AM to monitor blood counts, electrolytes and renal function.
[2018-07-17] MEDS ORDERED: IOHEXOL 350mg/ml 75ml INJECTION ONE (15:36)
[2018-07-17] MEDS ORDERED: SALINE FLUSH 10ml SYRINGE ONE (15:36)
--- NOTE | 2018-07-17 17:19 | CT Scan Report ---
Indication: acute hypoxia PROCEDURE: CT angio pulm emboli: Encounter: Initial Comparison: None Technique: Axial CT pulmonary angiographic phase images were performed through the chest after the administration of intravenous contrast. Coronal and Sagittal MIP reconstructed images were created and reviewed. Automated Exposure Control and Iterative Reconstruction dose reducing techniques were utilized. Contrast: Omnipaque 350 73 mL Findings: Pulmonary arteries: Exam is diagnostic to the subsegmental pulmonary arterial level. There are multifocal filling defects seen in the right lower lobe segmental and subsegmental pulmonary arteries. Other findings: Groundglass opacity seen scattered throughout the right upper and middle lobes with lesser involvement in both lower lobes and the lingula. No pleural effusion or pneumothorax. The central airways are patent. Heart size is normal. No pericardial effusion. No axillary adenopathy. Borderline prominent AP window nodes. The upper abdomen shows no acute findings. Bone windows show no acute findings. Impression: 1. Right lower lobe segmental and subsegmental pulmonary emboli. No CT evidence of right heart strain currently. 2. Multifocal groundglass airspace opacities. Differential considerations include infection, inflammation and pulmonary hemorrhage. Results were called to Aydee Payne at 1715 on July 17, 2018. .
[2018-07-17] MEDS ORDERED: HEPARIN DRIP 20,000 UNIT/500 ML BAG IV SCH (17:30)
[2018-07-17] MEDS ORDERED: HEPARIN 1,000unit/ml INJECTION 10ml IVP ONE (17:46)
--- NOTE | 2018-07-17 17:55 | Pharmacy Consult ---
Pharmacy Consult-Heparin - Laboratory Information Heparin Plt Count 273 T/MM3 (130-400) 07/17/18 03:45 APTT 24.0 SEC (24-36) 07/12/18 07:33 - Consult Information HEPARIN CONSULT (Initial): Dx: PE Baseline PTT = 24 Sec on 07/12. Baseline platelet count = 273 T/mm3. PTT Target Range = 55-83 Will give Heparin Bolus of 8,000units, start Heparin Drip at 1760units/hr (44ml/ hr). Heparin 20,000 units in D5W 500ml. We will continue to monitor and make adjustments accordingly. Thank you.
[2018-07-17] MEDS: SALINE FLUSH 10ml SYRINGE IVF PRN (18:33)
[2018-07-17] MEDS: HEPARIN DRIP 20,000 UNIT/500 ML BAG IV SCH (18:40)
[2018-07-17] MEDS: MAG-AL + SIM ORAL LIQUID 30ml PO PRN (19:53)
[2018-07-17] MEDS: ZIPRASIDONE 40 MG CAPSULE PO SCH (21:01)
[2018-07-17] MEDS: FLUoxetine 20 MG CAPSULE PO SCH (21:01)
[2018-07-17] MEDS: GUAIFENESIN/DM 5ml ORAL LIQUID PO PRN (21:04)
[2018-07-18] MEDS ORDERED: HEPARIN 1,000unit/ml INJECTION 10ml IVP ONE ×2 (04:08→14:00)
[2018-07-18] MEDS: LEVOTHYROXINE 75 MCG TABLET PO SCH (05:52)
[2018-07-18] MEDS: HEPARIN DRIP 20,000 UNIT/500 ML BAG IV SCH ×2 (06:02→15:54)
[2018-07-18] MEDS: BUDESONIDE INH.SOLN 0.5mg/2ml NEB AEROSOL SCH ×2 (07:18→18:58)
[2018-07-18] MEDS: ALBUTEROL/IPRATROPIUM 2.5mg-0.5mg/3ml NEB AEROSOL SCH ×4 (07:18→18:59)
--- NOTE | 2018-07-18 08:58 | Pulmonology Progress Note ---
Subjective Principal diagnosis: pneumonia Interval history: Pt currently sitting up in the chair on 5L per NC and tolerating. States she is still wheezy but no SOB noted at this time. + cough with white sputum noted. Exam Vital signs: Temperature 97.2 F 07/18/18 07:44 Pulse Rate 80 07/18/18 07:44 Respiratory Rate 24 07/18/18 07:44 Blood Pressure 132/76 07/18/18 07:44 Pulse Oximetry 95 07/18/18 07:44 Inpatient Medications: Generic Name Dose Route Start Last Admin Trade Name Freq PRN Reason Stop Dose Admin Acetaminophen 650 mg 07/14/18 12:11 Tylenol PO QID PRN Discomfort Hydrocodone Bitart/Acetaminophen 1 tab 07/12/18 10:21 [place] 5/325 PO Q6H PRN Pain Al Hydroxide/Mg Hydroxide 30 ml 07/12/18 21:00 07/17/18 19:53 Maalox Plus PO 30 ml Q3H PRN Administration Indigestion Al Hydroxide/Mg Hydroxide 30 ml 07/15/18 19:06 Maalox Plus PO Q3H PRN Indigestion Albuterol Sulfate 2.5 mg 07/12/18 11:44 Proventil Neb (0.083%) AEROSOL Q2HR PRN Shortness of air/wheezing Albuterol/Ipratropium 3 ml 07/12/18 15:00 07/18/18 07:18 Duoneb AEROSOL 3 ml RTQID SELINA Administration Bisacodyl 10 mg 07/15/18 19:42 Dulcolax RECTALLY DAILY PRN Constipation Budesonide 0.5 mg 07/16/18 11:00 07/18/18 07:18 Pulmicort Inhalation AEROSOL 0.5 mg RTBID SELINA Administration Fluoxetine HCl 40 mg 07/13/18 21:00 07/17/18 21:01 Prozac PO 40 mg HS SELINA Administration Guaifenesin/Dextromethorphan 10 ml 07/13/18 21:34 07/17/18 21:04 Robitussin Dm PO 10 ml Q4H PRN Administration Cough /Congestion Ceftriaxone Sodium 1 g/ Sodium 100 mls @ 200 mls/hr 07/12/18 08:00 07/17/18 09:37 Chloride IV Infused Q24H SELINA Infusion Heparin Sodium (Porcine) 20,000 unit in 500 mls @ 49 mls/hr 07/17/18 17:48 06:02 Heparin Drip IV 49 mls/hr .[id number] SELINA 49 mls/hr Administration Protocol Levothyroxine Sodium 75 mcg 07/14/18 06:30 07/18/18 05:52 Synthroid PO 75 mcg ACB SELINA Administration Magnesium Hydroxide 30 ml 07/13/18 09:00 07/17/18 09:05 Mom PO 30 ml DAILY SELINA Administration Magnesium Hydroxide 30 ml 07/15/18 19:42 Mom PO DAILY PRN Constipation Morphine Sulfate 1 - 2 mg 07/12/18 10:21 Morphine Sulf 2 Mg Inj IVP Q2H PRN Moderate to Sever pain Ondansetron HCl 4 mg 07/12/18 10:21 Zofran IVP Q6H PRN Nausea &/or vomiting Polyethylene Glycol 17 gm 07/16/18 09:00 07/17/18 09:05 Miralax PO 17 gm DAILY SELINA Administration Potassium Chloride 40 meq 07/14/18 12:14 07/17/18 19:26 K-Dur 20 Meq Tablet PO 40 meq BIDWM SELINA Administration Prednisone 40 mg 07/16/18 11:00 07/17/18 09:07 Deltasone 20 Mg PO 07/20/18 23:59 40 mg WB SELINA Administration Senna/Docusate Sodium 2 tab 07/15/18 21:00 07/17/18 21:01 Senna Plus Tablet PO 2 tab BID SELINA Administration Sodium Chloride 10 - 80 ml 07/12/18 07:33 07/17/18 18:33 Iv Flush IVF 10 ml PRN PRN Administration [place] Sodium Chloride 500 ml 07/16/18 08:17 Normal Saline IV PRN PRN Ziprasidone 40 mg 07/12/18 21:37 07/17/18 21:01 Geodon PO 40 mg HS SELINA Administration Ziprasidone 20 mg 07/13/18 09:00 07/17/18 09:12 Geodon PO 20 mg DAILY SELINA Administration Discontinued Medications Generic Name Dose Route Start Last Admin Trade Name Freq PRN Reason Stop Dose Admin Acetaminophen 325 - 650 mg 07/12/18 10:21 Tylenol MI Q5H PRN Pain Albuterol/Ipratropium 3 ml 07/12/18 07:28 07/12/18 07:30 Duoneb AEROSOL 07/12/18 07:29 3 ml O ONE Administration Albuterol/Ipratropium 3 ml 07/12/18 11:17 Duoneb AEROSOL RTQID PRN Azithromycin 500 mg 07/15/18 09:00 07/16/18 08:36 Zithromax PO 07/17/18 08:59 500 mg DAILY SELINA Administration Ceftriaxone Sodium 1 g 07/12/18 07:45 07/12/18 17:26 Rocephin 1 Gm IM Not Given Q24H SELINA Ceftriaxone Sodium 1 gm 07/12/18 08:00 07/12/18 07:54 Rocephin 1 Gm Ivpb IV 07/12/18 08:01 1 gm O ONE Administration Ceftriaxone Sodium 1 gm 07/13/18 08:00 Rocephin 2 Gm IV Q24H SELINA Enoxaparin Sodium 40 mg 07/12/18 10:30 07/17/18 09:05 Lovenox SQ 40 mg DAILY SELINA Administration Fluoxetine HCl 40 mg 07/12/18 21:39 07/14/18 09:01 Prozac PO 40 mg DAILY SELINA Administration Furosemide 40 mg 07/13/18 17:00 07/15/18 08:07 Lasix 40 Mg/4 Ml IVP 40 mg 0900,1700 SELINA Administration Furosemide 40 mg 07/15/18 14:00 07/15/18 18:30 Lasix 40 Mg/4 Ml IVP 40 mg 0900,1400 SELINA Administration Heparin Sodium (Beef Lung) 8,000 unit 07/17/18 17:46 07/17/18 18:33 Heparin Bolus IVP 07/17/18 17:47 8,000 unit O ONE Administration Heparin Sodium (Beef Lung) 3,000 unit 07/18/18 04:08 07/18/18 04:33 Heparin Bolus IVP 07/18/18 04:09 3,000 unit O ONE Administration Sodium Chloride 1,000 mls @ 999.9 mls/hr 07/12/18 07:37 07/12/18 09:00 Normal Saline IV 07/12/18 08:36 Infused .Q1H ONE Infusion Azithromycin 500 mg/ Sodium 250 mls @ 250 mls/hr 07/12/18 10:15 07/14/18 12: 00 Chloride IV Infused Q24H SELINA Infusion Sodium Chloride 1,000 mls @ 30 mls/hr 07/12/18 10:30 08/23/18 16:33 Normal Saline IV Infused .Q24H SELINA Infusion Sodium Chloride 500 mls @ 500 mls/hr 07/12/18 21:35 07/12/18 22:45 Normal Saline IV 07/12/18 22:34 Infused .Q1H ONE Infusion Heparin Sodium (Porcine) 20,000 unit in 500 mls @ 0 mls/hr 07/17/18 17:30 Heparin Drip IV .Q0M [facility] Protocol Per Protocol Pharmacy Consult each 07/14/18 13:03 Pharmacy Consult - Fall Risk 07/14/18 13:04 ONE TIME ONE Potassium Chloride 20 meq 07/16/18 08:12 07/16/18 11:52 K-Dur 20 Meq Tablet PO 07/16/18 08:13 20 meq O ONE Administration Senna/Docusate Sodium 1 tab 07/12/18 10:21 Senna Plus Tablet PO BID PRN Constipation - Constitutional no acute distress, morbidly obese, cooperative - Routine HEENT Exam Head: Present: normocephalic, atraumatic Eye: Present: EOMI, PERRL ENT: Present: mucous membranes moist - Routine Neck Exam Present: supple, full ROM, trachea midline - Routine Respiratory Exam Present: decreased breath sounds, wheezes. Absent: accessory muscle use, patient mechanically ventilated - Routine Cardiovascular Exam Present: RRR, S1, S2, no murmur - Routine Abdominal Exam Present: soft, normoactive bowel sounds - Routine Extremities Exam Present: non tender, full ROM. Absent: cyanosis - Routine Back/Spine/Pelvis Exam Back/Spine: Present: full ROM - Routine Skin Exam Present: intact, dry. Absent: cyanosis - Routine Neurological Exam Present: alert, oriented X3, CN II-XII intact - Routine Psychiatric Exam Present: normal affect, normal thought process - Urinary Catheter Management Urethral Cath placed during this visit: yes Insertion date: 07/12/18 Insertion time: 11:06 Results - Laboratory Findings Laboratory: Laboratory Results - last 48 hr 07/15/18 07/16/18 07/16/18 09:43 08:21 14:11 WBC RBC Hgb Hct MCV MCH MCHC RDW Std Deviation Plt Count MPV Immature Gran % (Auto) Neut % (Auto) Lymph % (Auto) [place] % (Auto) Eos % (Auto) Baso % (Auto) Neut # (Auto) Lymph # (Auto) Hubbard # (Auto) Eos # (Auto) Baso # (Auto) Abs Immat Gran (auto) Neutrophils % (Manual) Band Neutrophils % Lymphocytes % (Manual) Monocytes % (Manual) Eosinophils % (Manual) Basophils % (Manual) Metamyelocytes % Neutrophils # (Manual) Band Neutrophils # Lymphocytes # (Manual) Monocytes # (Manual) Eosinophils # (Manual) Basophils # (Manual) Metamyelocytes # Plasma Cell # (Manual) Nucleated RBCs Plasma Cells Hypochromasia Poikilocytosis Basophilic Stippling Anisocytosis Target Cells Tear Drop Cells RBC Morph Comment APTT D-Dimer 997 H Alveolar Air PO2 ABG pH ABG pCO2 ABG pO2 ABG HCO3 ABG Total CO2 ABG O2 Saturation ABG Base Excess A-a Gradient a/A Ratio O2 Delivery Method Vent Rate FiO2 PEEP Inspiratory Pressure Pressure Support Turbidity Sodium Potassium Chloride Carbon Dioxide Anion Gap BUN Creatinine Estimated Creat Clear GFR Calculation BUN/Creatinine Ratio Glucose Calculated Osmolality Calcium Magnesium Total Bilirubin Icterus Index AST ALT Alkaline Phosphatase Total Protein Albumin Globulin Albumin/Globulin Ratio Specimen Hemolysis Blood Type A Positive Antibody Screen Negative Crossmatch (AHG) See Detail Blood Product Request 1 unit pc issued 07/16/18 07/17/18 07/17/18 14:11 03:45 03:45 WBC 15.0 H RBC 2.86 L Hgb 8.0 L D 7.1 L D Hct 23.6 L MCV 82.5 MCH 24.8 L MCHC 30.1 L RDW Std Deviation 42.8 Plt Count 273 MPV 11.0 Immature Gran % (Auto) Not performed Neut % (Auto) Not performed Lymph % (Auto) Not performed [place] % (Auto) Not performed Eos % (Auto) Not performed Baso % (Auto) Not performed Neut # (Auto) Not performed Lymph # (Auto) Not performed [place] # (Auto) Not performed Eos # (Auto) Not performed Baso # (Auto) Not performed Abs Immat Gran (auto) Not performed Neutrophils % (Manual) 74.0 H Band Neutrophils % 5.0 Lymphocytes % (Manual) 16.0 L Monocytes % (Manual) 3.0 Eosinophils % (Manual) Basophils % (Manual) Metamyelocytes % 1.0 H Neutrophils # (Manual) 11.1 H Band Neutrophils # 0.8 Lymphocytes # (Manual) 2.4 Monocytes # (Manual) 0.5 Eosinophils # (Manual) Basophils # (Manual) Metamyelocytes # 0.2 Plasma Cell # (Manual) 0.2 Nucleated RBCs 2 Plasma Cells 1.0 H Hypochromasia 1+ Poikilocytosis 2+ Basophilic Stippling Anisocytosis 3+ Target Cells 1+ Tear Drop Cells RBC Morph Comment Abnormal APTT D-Dimer Alveolar Air PO2 ABG pH ABG pCO2 ABG pO2 ABG HCO3 ABG Total CO2 ABG O2 Saturation ABG Base Excess A-a Gradient a/A Ratio O2 Delivery Method Vent Rate FiO2 PEEP Inspiratory Pressure Pressure Support Turbidity < 20 Sodium 144 Potassium 4.7 D Chloride 99 Carbon Dioxide 39 H Anion Gap 6 BUN 19.0 H Creatinine 0.6 L Estimated Creat Clear 144 GFR Calculation 105 BUN/Creatinine Ratio 32 H Glucose 135 H Calculated Osmolality 281 H Calcium 7.9 L Magnesium 2.6 H Total Bilirubin 0.90 Icterus Index < 2 AST 27 ALT 35 Alkaline Phosphatase 98 Total Protein 6.5 Albumin 3.1 L Globulin 3.4 Albumin/Globulin Ratio 0.9 L Specimen Hemolysis < 15 Blood Type Antibody Screen Crossmatch (AHG) Blood Product Request 07/17/18 07/18/18 07/18/18 04:12 02:05 02:05 WBC 11.9 H RBC 2.66 L Hgb 7.0 L Hct 22.1 L MCV 83.1 MCH 26.3 MCHC 31.7 RDW Std Deviation 44.4 Plt Count 230 MPV 11.1 Immature Gran % (Auto) Not performed Neut % (Auto) Not performed Lymph % (Auto) Not performed [place] % (Auto) Not performed Eos % (Auto) Not performed Baso % (Auto) Not performed Neut # (Auto) Not performed Lymph # (Auto) Not performed [place] # (Auto) Not performed Eos # (Auto) Not performed Baso # (Auto) Not performed Abs Immat Gran (auto) Not performed Neutrophils % (Manual) 73.0 H Band Neutrophils % 2.0 Lymphocytes % (Manual) 21.0 L Monocytes % (Manual) 2.0 Eosinophils % (Manual) 1.0 Basophils % (Manual) 1.0 Metamyelocytes % Neutrophils # (Manual) 8.7 H Band Neutrophils # 0.2 Lymphocytes # (Manual) 2.5 Monocytes # (Manual) 0.2 Eosinophils # (Manual) 0.1 Basophils # (Manual) 0.1 Metamyelocytes # Plasma Cell # (Manual) Nucleated RBCs Plasma Cells Hypochromasia 1+ Poikilocytosis 2+ Basophilic Stippling 1+ Anisocytosis 2+ Target Cells 1+ Tear Drop Cells 1+ RBC Morph Comment Abnormal APTT D-Dimer Alveolar Air PO2 205.7 ABG pH 7.439 ABG pCO2 60 H* ABG pO2 66.3 L ABG HCO3 40.8 H ABG Total CO2 42.6 H ABG O2 Saturation 92.7 L ABG Base Excess 14.8 H A-a Gradient 139.4 a/A Ratio 32.2 O2 Delivery Method Bipap Vent Rate 12 FiO2 40 PEEP 5 Inspiratory Pressure 15 Pressure Support 10 Turbidity < 20 Sodium 143 Potassium 4.8 Chloride 100 Carbon Dioxide 37 H Anion Gap 6 BUN 18.0 H Creatinine 0.7 Estimated Creat Clear 124 GFR Calculation 88 BUN/Creatinine Ratio 26 Glucose 136 H Calculated Osmolality 279 Calcium 8.3 L Magnesium Total Bilirubin Icterus Index < 2 AST ALT Alkaline Phosphatase Total Protein Albumin Globulin Albumin/Globulin Ratio Specimen Hemolysis < 15 Blood Type Antibody Screen Crossmatch (AHG) Blood Product Request 07/18/18 02:05 WBC RBC Hgb Hct MCV MCH MCHC RDW Std Deviation Plt Count MPV Immature Gran % (Auto) Neut % (Auto) Lymph % (Auto) [place] % (Auto) Eos % (Auto) Baso % (Auto) Neut # (Auto) Lymph # (Auto) [place] # (Auto) Eos # (Auto) Baso # (Auto) Abs Immat Gran (auto) Neutrophils % (Manual) Band Neutrophils % Lymphocytes % (Manual) Monocytes % (Manual) Eosinophils % (Manual) Basophils % (Manual) Metamyelocytes % Neutrophils # (Manual) Band Neutrophils # Lymphocytes # (Manual) Monocytes # (Manual) Eosinophils # (Manual) Basophils # (Manual) Metamyelocytes # Plasma Cell # (Manual) Nucleated RBCs Plasma Cells Hypochromasia Poikilocytosis Basophilic Stippling Anisocytosis Target Cells Tear Drop Cells RBC Morph Comment APTT 49.5 H D-Dimer Alveolar Air PO2 ABG pH ABG pCO2 ABG pO2 ABG HCO3 ABG Total CO2 ABG O2 Saturation ABG Base Excess A-a Gradient a/A Ratio O2 Delivery Method Vent Rate FiO2 PEEP Inspiratory Pressure Pressure Support Turbidity Sodium Potassium Chloride Carbon Dioxide Anion Gap BUN Creatinine Estimated Creat Clear GFR Calculation BUN/Creatinine Ratio Glucose Calculated Osmolality Calcium Magnesium Total Bilirubin Icterus Index AST ALT Alkaline Phosphatase Total Protein Albumin Globulin Albumin/Globulin Ratio Specimen Hemolysis Blood Type Antibody Screen Crossmatch (AHG) Blood Product Request Assessment and Plan (1) Acute respiratory failure with hypoxia Status: Acute Assessment and plan: Pt currently on O2 at 5L per [place], no O2 at home. Continue to wean to keep sats > 90% Current Visit: Yes (2) Mycoplasma pneumonia Status: Acute Assessment and plan: Currently on BT's with pulmicort BID, A/A QID and prednisone 40mg daily x 5 days for wheezing. On Abx with azithro/rocephin, CT scan still with Multifocal groundglass airspace opacities R>L. Continue to follow closely. Current Visit: Yes (3) Pulmonary embolism Status: Acute Assessment and plan: PE noted per CTA with Right lower lobe segmental and subsegmental pulmonary emboli. Currently on heparin gtt, no RV strain per CT. Current Visit: Yes - Time Spent With Patient Total time spent is greater than 50% in coordination of care (as documented) at patient's floor/unit and/or counseling patient: less than 15 minutes
[2018-07-18] MEDS: CEFTRIAXONE 1 G in NS 100 ML IV SCH (09:30)
[2018-07-18] MEDS: ZIPRASIDONE 20 MG CAPSULE PO SCH (09:30)
[2018-07-18] MEDS: PredniSONE 20 MG TABLET PO SCH (09:31)
[2018-07-18] MEDS: SENNA + DOCUSATE TABLET PO SCH ×2 (09:31→21:20)
[2018-07-18] MEDS: POLYETHYL GLYCOL 3350 17gm PACKET PO SCH (09:32)
--- NOTE | 2018-07-18 10:41 | Progress Note ---
- Date 07/18/18 Subjective: Marian is seen today while sitting up in her recliner. She is breathing easily on 5L NC. She continues to report a productive cough with white sputum but remains afebrile. CTA yesterday revealed right lower lobe segmental and subsegmental pulmonary emboli without evidence of right heart strain currently and multifocal ground-glass airspace opacities. She was started on a heparin drip. She denies any chest pain, increased shortness of breath, abdominal pain, nausea or vomiting. Her appetite is good and bowels are moving. Objective Vital signs: Temperature 97.2 F 07/18/18 07:44 Pulse Rate 80 07/18/18 07:44 Respiratory Rate 24 07/18/18 07:44 Blood Pressure 132/76 07/18/18 07:44 Pulse Oximetry 95 07/18/18 07:44 Rhythm: Normal Sinus Rhythm Height/Weight/BMI: Height 5 ft 4 in Weight 282 lb 3.067 oz Body Mass Index 46.0 Comments: Sitting up in chair, breathing easily on 5L. Very pleasant and cheerful disposition. - Constitutional Present: no acute distress, well nourished, well developed, morbidly obese, cooperative - Routine HEENT Exam Head: Present: normocephalic, atraumatic Eye: Present: PERRL. Absent: conjunctival icterus ENT: Present: mucous membranes moist, oropharynx clear - Routine Respiratory Exam Present: decreased breath sounds, wheezes Comments: Decreased breath sounds bilaterally with scattered expiratory wheezing and diminished breath sounds bilateral bases. - Routine Cardiovascular Exam Present: RRR, S1, S2 - Routine Abdominal Exam Present: soft, normoactive bowel sounds, non tender - Routine Extremities Exam Present: no edema, full ROM, pulses intact - Routine Back/Spine/Pelvis Exam Back/Spine: Present: full ROM. Absent: vertebral tenderness - Routine Musculoskeletal Exam Musculoskeletal: Present: no clubbing or cyanosis, moving extremities well - Routine Skin Exam Present: intact, dry, warm Comments: Afebrile. - Routine Neurological Exam Present: alert, oriented X3, moving all extremities, hearing grossly intact, normal speech - Routine Lymphatic Exam Lymphatic: Absent: lymphedema - Routine Psychiatric Exam Present: normal affect, cooperative Results - Labs CBC & Chem 7: 07/18/18 02:05 07/18/18 02:05 Microbiology Results: Microbiology 07/12/18 07:43 Peripheral/Iv Start Blood Culture - Final No Growth After 5 Days 07/12/18 07:47 Peripheral/Iv Start Blood Culture - Final No Growth After 5 Days 07/12/18 11:09 Urine Legionella Urinary Antigen - Final - ABG Interpretation ABG results: 07/17/18 04:12 ABG pH 7.439 ABG pCO2 60 H* ABG pO2 66.3 L ABG HCO3 40.8 H ABG Total CO2 42.6 H ABG O2 Saturation 92.7 L ABG Base Excess 14.8 H - Echocardiogram History of Echocardiogram: Date of Exam: 07/14/18. Type of Exam(s): US echo doppler complete. DATE OF STUDY. 07/14/2018. INDICATIONS. Dyspnea. TECHNICAL QUALITY. Technically fair 2D, M-mode, Doppler echocardiographic images were submitted for interpretation. Images were somewhat difficult due to patient being scanned in upright position because of marked dyspnea. FINDINGS. 1. CARDIAC CHAMBERS: All cardiac chamber measurements are normal. Aortic root diameter is normal. RV size and contractility appear normal. 2. LEFT VENTRICLE: Wall thickness measures 10 mm in the posterior wall, 11 mm in the septal wall. Left ventricular systolic function appears normal. Ejection fraction is normal measured at about 65%. No significant regional wall motion abnormalities were appreciated. 3. VALVES: Aortic valve exhibits mild sclerotic changes. Valve opening is normal. Mitral valve exhibits annular calcification posteriorly. Valve excursion is normal. Tricuspid valve structure and motion appear normal. Normal valve excursion. Visualization is somewhat difficult nevertheless. 4. DOPPLER: Normal diastolic function parameters. Trace regurgitation involving tricuspid, mitral and pulmonic valves , none of hemodynamic significance. 5. Systolic pulmonary artery pressure estimated at 26 mmHg. 6. Flow velocities throughout were normal. The aortic valve was borderline increased at 1.95 m/sec with a mean gradient of 8 mmHg. Nevertheless, the calculated aortic valve area 2.2 cm2 falls well within normal range. Peak flow velocity at the LVOT level is 1 m/sec. 7. No evidence of pericardial effusion, intracardiac masses, thrombi, vegetations or shunts. 8. IVC is not well seen. IMPRESSION. 1. Technically difficult study due to patient's marked dyspnea and patient being scanned in upright position. 2. Normal biventricular size and systolic function. 3. Normal diastolic function parameters. 4. Sclerotic changes of the aortic and mitral valves without significant valvular dysfunction. - Imaging and Cardiology CT scan - chest Status: image reviewed by me Additional comments: Date of Exam: 07/17/18 Type of Exam(s): CT angio pulm emboli Reason for Exam(s): acute hypoxia Findings: Pulmonary arteries: Exam is diagnostic to the subsegmental pulmonary arterial level. There are multifocal filling defects seen in the right lower lobe segmental and subsegmental pulmonary arteries. Other findings: Groundglass opacity seen scattered throughout the right upper and middle lobes with lesser involvement in both lower lobes and the lingula. No pleural effusion or pneumothorax. The central airways are patent. Heart size is normal. No pericardial effusion. No axillary adenopathy. Borderline prominent AP window nodes. The upper abdomen shows no acute findings. Bone windows show no acute findings. Impression: 1. Right lower lobe segmental and subsegmental pulmonary emboli. No CT evidence of right heart strain currently. 2. Multifocal groundglass airspace opacities. Differential considerations include infection, inflammation and pulmonary hemorrhage. Assessment and Plan (1) Mycoplasma pneumonia Current visit: Yes Status: Acute (2) Acute respiratory failure with hypoxia Current visit: Yes Status: Acute Assessment and Plan: Assessment: Acute hypoxemic respiratory failure. Sepsis, originating from pneumonia. Right lower lobe PE. Bilateral lower lobe pneumonia, positive mycoplasma pneumoniae PCR Acute renal insufficiency, likely secondary to dehydration, resolved Anemia (POA). Schizoaffective disorder Anxiety Hypothyroidism GERD History of adenomatous polyposis of colon, 17 polyps noted on previous colonoscopy 03/28/2017. Osteoarthritis Morbid obesity, BMI 46 Hypokalemia-07/14/18 Plan: CTA revealed right lung PE. Heparin drip initiated for treatment. Treatment for Mycoplasma pneumonia complete - azithromycin discontinued on 07/16, ceftriaxone discontinued 07/18/18. Patient remains afebrile. Leukocytosis slowly improving. Continue to monitor. Patient continues to require oxygen supplementation at 5L per NC - improving. Recommend continuing to encourage patient to utilize BiPAP. Seen by Dr. Irwin (pul) - recommended continuation of nebulized treatments with the addition of Pulmicort BID and a short burst of prednisone 40mg daily x 5 days. PFT testing recommended as well. Continue oxygen as needed to maintain SAO2 >90%, weaning as able. Patient does not use home oxygen. Hemoglobin improved to 8.0 following PRBC x 1 unit on 8/22/18. Decreased to 7.0 today. Asymptomatic. Continue to monitor closely. Anticipate will require additional PRBC. Hemoglobin electrophoresis pending due to marked microcytosis without iron deficiency. Anemia likely due to chronic blood loss given known history of polyposis. Bowels finally moving. Continue bowel motivation. Bicarbonate slowly trending down. Diuretics remain on hold. Weight up from admission but remains stable. Will recheck labs in AM to monitor blood counts, electrolytes and renal function. DVT Prophylaxis: SCD's, Heparin drip GI Prophylaxis: Protonix Resuscitation Status: Full Code External Problems Reviewed(CCD)?: No - Time spent with patient Time with patient PN: 30 minutes - Physician Narrative Physician: Carter Carter MD Narrative: Date: 07/18/18 Time: 1625 I have independently evaluated and examined this patient. I reviewed the chart, the patient's history, and the [employer] REPA[employer]ER/PA's documented findings as above. We discussed and formulated the assessment and plan as above with additions as below: Patient resting comfortably and in good spirits. Says her breathing is feeling better. Has walked in the boothe and plans another walk this evening. Bowels have moved. No hemoptysis. NAD. CTAB. RRR. s/nt/nd. no edema Antibiotics completed for mycoplasma PNA. On heparin drip for PE. Hbg down and will recheck lab in am. Patient trying to work with NIPPV. Encourage activity. Hospital Course Summary Disclaimer: The visit summary below is not to be considered part of the above Progress Note. Hospital Course: 07/12/2018 Patient admitted to CCU with acute hypoxemic respiratory failure. ABG requested. Prolactin elevated at 53 although lactic acid was 1.7. We will recheck lactic acid in 6 hours. Patient received 1 L IV fluid normal saline bolus in the emergency room. Started on IV fluids normal saline at 100 mL per hour for 1 L and thereafter will decrease to 75 mL per hour. Respiratory panel shows positive mycoplasma pneumoniae PCR. Blood culture 2, sputum culture, Legionella urine antigen results awaited. Antibiotic coverage with IV Rocephin 1 g daily and IV azithromycin 500 mg daily. DuoNeb 3 mL nebulization treatment every 6 hours scheduled. Albuterol 0.083% nebulization every 2 hours as needed for wheezing or shortness of breath. Cautious IV fluid replacement in the context of concern for underlying CHF. BNP 19179. Echocardiogram ordered next available. Serum troponin 0.157, likely secondary to demand ischemia. Repeat EKG and cardiac enzymes every 6 hours 2 ordered. We will continue home medication levothyroxine, ziprasidone, fluoxetine. Patient placed on 3 g salt, mechanical soft diet with nectar thickened liquids. We will advance diet as tolerated. Tylenol 650 mg by mouth every 5 hours as needed for mild pain or fever. IV morphine 12 milligram every 2 hours as needed for severe pain. Patient reportedly had appointment for repeat colonoscopy last week with Dr. Albright but missed her appointment as she was feeling sick. Will need appointment rescheduled at the time of discharge. 07/13/2018 Patient admitted to CCU with acute hypoxemic respiratory failure. ABG performed after admission on 07/12/2018 on BiPAP 15/5 cm H2O with FiO2 50% shows pH 7.496 , PCO2 33, PO2 120, HCO3 33 with oxygen saturation 99%. Lactic acid 1.7 on admission, later on decreased slightly to 1.5. Patient has +4 L fluid balance along with 1.5 KG weight gain from admission. IV fluid rate decreased to 30 mL per hour. BNP 39196 on admission, 1990 today. Echocardiogram ordered next available. Patient started on IV Lasix 40 mg twice a day. Will closely monitor intake and output, daily weights. Respiratory panel shows positive mycoplasma pneumoniae PCR. Legionella urine antigen negative. Blood culture 2, sputum culture results awaited. Antibiotic coverage with IV Rocephin 1 g daily and IV azithromycin 500 mg daily. DuoNeb 3 mL nebulization treatment every 6 hours scheduled. Albuterol 0.083% nebulization every 2 hours as needed for wheezing or shortness of breath. We will provide BiPAP 15/5 cm H2O with FiO2 50% continuously at nighttime. Alternating with high flow nasal cannula 68 liters as needed to maintain oxygen saturations more than 90% during daytime. Serum troponin 0.157, repeat serum troponin improved to 0.115. Likely secondary to demand ischemia. 07/14/18 Day 3 antibiotics for mycoplasma pneumonia; patient describes clearing sputum and feeling less short of breath with treatment. Continue ceftriaxone, azithromycin and switch to oral administration to complete 5 day course. Oxygen being titrated-decreased from 10 L to 6 L while awake; continues to require BiPAP at night. Continue diuresis, proBNP approaching normal. Renal function and hepatic function have improved with adequate oxygenation and diuresis. Potassium being replaced orally. 07/15/18 Day 4 antibiotics for mycoplasma pneumonia; continue ceftriaxone, azithromycin and switch to oral administration to complete 5 day course. Chest x-ray in a.m. On 6 L oxygen earlier in the day but has been titrated back to 10 L this evening ; resume BiPAP this evening. Oxygen demand seems excessive at this point in the hospital course. Continue diuresis with oral potassium replacement. Echocardiogram with EF 65%, normal diastolic function, no significant valve disease, PAP 26 mm. Microcytic anemia however patient is not iron deficient by studies obtained today. Hemoglobin electrophoresis will be sent 07/16/18 Day 5 antibiotics for mycoplasma pneumonia - continue ceftriaxone IV and azithromycin PO--> completed 5 days of azithromycin, discontinued. CXR this AM - pending. On 6 L oxygen currently and breathing easily. Only on NC during the night - did not use Bipap. Hgb 6.5 this morning. Will give 1 unit PRBC now and recheck hgb following transfusion. CO2 trending up (42 today). SCr and BUN stable. Continue adequate oxygenation. >3L urinary output daily via hoffman. Weight slowly tending down and BNP trending down. Continue diuresis. Consider decreasing to Lasix dosing to avoid over diuresis. K+ 3.5. Continue KCl 40 mEq po BID. Will give additional KCl 20 meq po this AM. Continue to monitor. Microcytic anemia however patient is not iron deficient by studies obtained 07/15. Hemoglobin electrophoresis will be sent. No signs of bleeding. Continue to monitor hemoglobin closely. Continue bowel motivation. Recheck labs in AM to monitor blood counts, electrolytes and renal function. 07/17/18 Mycoplasma pneumonia - azithromycin course complete and discontinued on . Will continue ceftriaxone for antimicrobial coverage. Patient remains afebrile. CXR on 07/16/18 showed slowly improving pneumonia. Patient continues to require significant oxygen supplementation at 7L per NC. Recommend continuing to encourage patient to utilize BiPAP while sleeping given abnormal ABG. Seen by Dr. Irwin (pul) - recommended continuation of nebulized treatments with the addition of Pulmicort BID and a short burst of prednisone 40mg daily x 5 days. PFT testing recommended as well. Continue oxygen as needed to maintain SAO2 >90%, weaning as able. Patient does not use home oxygen. D-dimer elevated at 997. Will discuss obtaining CTA chest to evaluate for PE with Dr. Carter. Hemoglobin improved to 8.0 following PRBC x 1 unit on 07/16/18. Decreased to 7.1 today. Asymptomatic. Continue to monitor closely. Anticipate will require additional PRBC. Still awaiting stool guaiacs. Hemoglobin electrophoresis pending due to marked microcytosis without iron deficiency. Anemia likely due to chronic blood loss given known history of polyposis. Continue bowel motivation. Bicarbonate slowly trending down. Diuretics remain on hold. Weight up from admission but remains stable. Will recheck labs in AM to monitor blood counts, electrolytes and renal function. 07/18/18 CTA revealed right lung PE. Heparin drip initiated for treatment. Treatment for Mycoplasma pneumonia complete - azithromycin discontinued on 07/16, ceftriaxone discontinued 07/18/18. Patient remains afebrile. Leukocytosis slowly improving. Continue to monitor. Patient continues to require oxygen supplementation at 5L per NC - improving. Recommend continuing to encourage patient to utilize BiPAP. Seen by Dr. Irwin (pul) - recommended continuation of nebulized treatments with the addition of Pulmicort BID and a short burst of prednisone 40mg daily x 5 days. PFT testing recommended as well. Continue oxygen as needed to maintain SAO2 >90%, weaning as able. Patient does not use home oxygen. Hemoglobin improved to 8.0 following PRBC x 1 unit on 07/16/18. Decreased to 7.0 today. Asymptomatic. Continue to monitor closely. Anticipate will require additional PRBC. Hemoglobin electrophoresis pending due to marked microcytosis without iron deficiency. Anemia likely due to chronic blood loss given known history of polyposis. Bowels finally moving. Continue bowel motivation. Bicarbonate slowly trending down. Diuretics remain on hold. Weight up from admission but remains stable. Will recheck labs in AM to monitor blood counts, electrolytes and renal function.
[2018-07-18] MEDS: MAG-AL + SIM ORAL LIQUID 30ml PO PRN (10:52)
[2018-07-18] MEDS: FLUoxetine 20 MG CAPSULE PO SCH (21:20)
[2018-07-18] MEDS: GUAIFENESIN/DM 5ml ORAL LIQUID PO PRN (21:20)
[2018-07-18] MEDS: ZIPRASIDONE 40 MG CAPSULE PO SCH (21:20)
[2018-07-18] MEDS: NS 1,000 ML IV SCH (22:33)
[2018-07-19] MEDS: HEPARIN DRIP 20,000 UNIT/500 ML BAG IV SCH ×2 (01:32→10:39)
[2018-07-19] MEDS: LEVOTHYROXINE 75 MCG TABLET PO SCH (06:04)
[2018-07-19] MEDS: ALBUTEROL/IPRATROPIUM 2.5mg-0.5mg/3ml NEB AEROSOL SCH ×4 (07:12→19:45)
[2018-07-19] MEDS: BUDESONIDE INH.SOLN 0.5mg/2ml NEB AEROSOL SCH ×2 (07:12→19:45)
--- NOTE | 2018-07-19 08:42 | Pharmacy Consult ---
Pharmacy Consult-Heparin - Laboratory Information Heparin Plt Count 196 T/MM3 (130-400) 07/19/18 04:01 APTT 67.4 SEC (24-36) H 07/18/18 21:43 HEPARIN THERAPY: PTT within therapeutic range last night. Kept drip at present rate = 2200 units /hr (55 ml/hr) Platelet count remains stable. Willl recheck PTT again today at 1200. Anticipate stable levels. Goal level = 55 - 83 secs. Thank you.
--- NOTE | 2018-07-19 08:59 | Progress Note ---
- Date 07/19/18 Subjective: Marian is seen today in follow up. She is up in the chair. Reports that she is slowly feeling better. Eating well. Getting up to BSC. Not confident that she can get to the bathroom yet. She has a hoffman in- she would like to leave it in one more day before we take it out. Objective Vital signs: Temperature 96.5 F L 07/19/18 08:08 Pulse Rate 76 07/19/18 08:08 Respiratory Rate 20 07/19/18 08:08 Blood Pressure 119/72 07/19/18 08:08 Pulse Oximetry 93 07/19/18 08:08 Rhythm: Normal Sinus Rhythm Height/Weight/BMI: Height 1.63 m Weight 128 kg Body Mass Index 46.0 - Constitutional Present: no acute distress, morbidly obese, cooperative - Routine HEENT Exam Head: Present: normocephalic, atraumatic Eye: Present: EOMI, PERRL ENT: Present: mucous membranes moist - Routine Respiratory Exam Present: dyspnea (Mild with speaking. ), diminished air movement. Absent: rales , rhonchi, crackles - Routine Cardiovascular Exam Present: RRR, S1, S2, no murmur - Routine Abdominal Exam Present: soft, normoactive bowel sounds, non distended, non tender - Routine Exam Comments: Hoffman- yellow urine. - Routine Extremities Exam Present: non tender (Edema vs. obesity. ), pulses intact - Routine Musculoskeletal Exam Musculoskeletal: Present: moving extremities well - Routine Skin Exam Present: intact, dry, warm - Routine Neurological Exam Present: alert, oriented X3, moving all extremities - Routine Psychiatric Exam Present: cooperative (Chronic changes c/w mental health and possible developmental delay. ) Results - Labs CBC & Chem 7: 07/19/18 04:01 07/19/18 04:01 Microbiology Results: Microbiology 07/12/18 07:43 Peripheral/Iv Start Blood Culture - Final No Growth After 5 Days 07/12/18 07:47 Peripheral/Iv Start Blood Culture - Final No Growth After 5 Days 07/12/18 11:09 Urine Legionella Urinary Antigen - Final - Imaging and Cardiology CT scan - chest Additional comments: Impression: 1. Right lower lobe segmental and subsegmental pulmonary emboli. No CT evidence of right heart strain currently. 2. Multifocal groundglass airspace opacities. Differential considerations include infection, inflammation and pulmonary hemorrhage. Assessment and Plan (1) Mycoplasma pneumonia Current visit: Yes Status: Acute (2) Acute respiratory failure with hypoxia Current visit: Yes Status: Acute Assessment and Plan: Assessment: Acute hypoxemic respiratory failure. Sepsis, originating from pneumonia. Right lower lobe PE. Bilateral lower lobe pneumonia, positive mycoplasma pneumoniae PCR Acute renal insufficiency, likely secondary to dehydration, resolved Anemia (POA). Schizoaffective disorder Anxiety Hypothyroidism GERD History of adenomatous polyposis of colon, 17 polyps noted on previous colonoscopy 03/28/2017. Osteoarthritis Morbid obesity, BMI 46 Hypokalemia-07/14/18 Plan: 07/19/18 CTA revealed right lung PE. Heparin drip per protocol. Consider starting Warfarin? Treatment for Mycoplasma pneumonia complete - azithromycin discontinued on 07/16, ceftriaxone discontinued 07/18/18. Patient remains afebrile. Repeat CXR in AM. O2 remains at 5.5 liters/Bipap as tolerated. Wt up 7 kg- will diurese today. Seen by Dr. Irwin ([facility]) - recommended continuation of nebulized treatments with the addition of Pulmicort BID and a short burst of prednisone 40mg daily x 5 days. PFT testing recommended as well. Continue oxygen as needed to maintain SAO2 >90%, weaning as able. Patient does not use home oxygen. Will need to check overnight oximetry before DC given severe obesity, high risk for OHS/CICI. Hemoglobin improved to 8.0 following PRBC x 1 unit on 07/16/18. Stable at 7.1 today. Suspect some dilutional- will start Lasix. Iron panel is normal despite microcytic anemia. Anticoagulation will be problematic- need to monitor outpatient labs closely. Likely need to avoid NOAC given high risk of GI blood losses. Hemoglobin electrophoresis pending due to marked microcytosis without iron deficiency. Anemia likely due to chronic blood loss given known history of polyposis. Bowels finally moving. Requests decrease in laxatives. Bicarbonate slowly trending down. Will restart moderate dose Lasix and observe. Decreased KCL dosing as potassium trending up. Continue to follow labs closely. Order repeat CXR in AM for stability. Start bladder training. Encouraged mobility. DC SCDs at pt. request reasonable given full anticoagulation on board. DVT Prophylaxis: Heparin drip GI Prophylaxis: Protonix Resuscitation Status: Full Code External Problems Reviewed(CCD)?: No - Physician Narrative Physician: Carter Carter MD Narrative: Date: 07/19/18 Time: 1620 I have independently evaluated and examined this patient. I reviewed the chart, the patient's history, and the [employer]/PA's documented findings as above. We discussed and formulated the assessment and plan as above with additions as below: Marian is resting comfortably. She says she is doing really well. She is excited about her supper order - salmon, mashed potatoes and gravy. She says her appetite is much better. She walked in the boothe. She says her breathing is good when active. She has a cough with white sputum. NAD. Decreased breath sounds. RRR. s/nt/nd. No edema. Lab reviewed and Hgb up slightly. Has done OK on heparin. Will switch to Lovenox. Given polyposis syndrome and her chronic anemia/bleeding, will need close f/u on coumadin or NOAC. Hospital Course Summary Disclaimer: The visit summary below is not to be considered part of the above Progress Note. Hospital Course: 07/12/2018 Patient admitted to CCU with acute hypoxemic respiratory failure. ABG requested. Prolactin elevated at 53 although lactic acid was 1.7. We will recheck lactic acid in 6 hours. Patient received 1 L IV fluid normal saline bolus in the emergency room. Started on IV fluids normal saline at 100 mL per hour for 1 L and thereafter will decrease to 75 mL per hour. Respiratory panel shows positive mycoplasma pneumoniae PCR. Blood culture 2, sputum culture, Legionella urine antigen results awaited. Antibiotic coverage with IV Rocephin 1 g daily and IV azithromycin 500 mg daily. DuoNeb 3 mL nebulization treatment every 6 hours scheduled. Albuterol 0.083% nebulization every 2 hours as needed for wheezing or shortness of breath. Cautious IV fluid replacement in the context of concern for underlying CHF. BNP 77641. Echocardiogram ordered next available. Serum troponin 0.157, likely secondary to demand ischemia. Repeat EKG and cardiac enzymes every 6 hours 2 ordered. We will continue home medication levothyroxine, ziprasidone, fluoxetine. Patient placed on 3 g salt, mechanical soft diet with nectar thickened liquids. We will advance diet as tolerated. Tylenol 650 mg by mouth every 5 hours as needed for mild pain or fever. IV morphine 12 milligram every 2 hours as needed for severe pain. Patient reportedly had appointment for repeat colonoscopy last week with Dr. Albright but missed her appointment as she was feeling sick. Will need appointment rescheduled at the time of discharge. 07/13/2018 Patient admitted to CCU with acute hypoxemic respiratory failure. ABG performed after admission on 07/12/2018 on BiPAP 15/5 cm H2O with FiO2 50% shows pH 7.496 , PCO2 33, PO2 120, HCO3 33 with oxygen saturation 99%. Lactic acid 1.7 on admission, later on decreased slightly to 1.5. Patient has +4 L fluid balance along with 1.5 KG weight gain from admission. IV fluid rate decreased to 30 mL per hour. BNP 88155 on admission, 1990 today. Echocardiogram ordered next available. Patient started on IV Lasix 40 mg twice a day. Will closely monitor intake and output, daily weights. Respiratory panel shows positive mycoplasma pneumoniae PCR. Legionella urine antigen negative. Blood culture 2, sputum culture results awaited. Antibiotic coverage with IV Rocephin 1 g daily and IV azithromycin 500 mg daily. DuoNeb 3 mL nebulization treatment every 6 hours scheduled. Albuterol 0.083% nebulization every 2 hours as needed for wheezing or shortness of breath. We will provide BiPAP 15/5 cm H2O with FiO2 50% continuously at nighttime. Alternating with high flow nasal cannula 68 liters as needed to maintain oxygen saturations more than 90% during daytime. Serum troponin 0.157, repeat serum troponin improved to 0.115. Likely secondary to demand ischemia. 07/14/18 Day 3 antibiotics for mycoplasma pneumonia; patient describes clearing sputum and feeling less short of breath with treatment. Continue ceftriaxone, azithromycin and switch to oral administration to complete 5 day course. Oxygen being titrated-decreased from 10 L to 6 L while awake; continues to require BiPAP at night. Continue diuresis, proBNP approaching normal. Renal function and hepatic function have improved with adequate oxygenation and diuresis. Potassium being replaced orally. 07/15/18 Day 4 antibiotics for mycoplasma pneumonia; continue ceftriaxone, azithromycin and switch to oral administration to complete 5 day course. Chest x-ray in a.m. On 6 L oxygen earlier in the day but has been titrated back to 10 L this evening ; resume BiPAP this evening. Oxygen demand seems excessive at this point in the hospital course. Continue diuresis with oral potassium replacement. Echocardiogram with EF 65%, normal diastolic function, no significant valve disease, PAP 26 mm. Microcytic anemia however patient is not iron deficient by studies obtained today. Hemoglobin electrophoresis will be sent 07/16/18 Day 5 antibiotics for mycoplasma pneumonia - continue ceftriaxone IV and azithromycin PO--> completed 5 days of azithromycin, discontinued. CXR this AM - pending. On 6 L oxygen currently and breathing easily. Only on NC during the night - did not use Bipap. Hgb 6.5 this morning. Will give 1 unit PRBC now and recheck hgb following transfusion. CO2 trending up (42 today). SCr and BUN stable. Continue adequate oxygenation. >3L urinary output daily via hoffman. Weight slowly tending down and BNP trending down. Continue diuresis. Consider decreasing to Lasix dosing to avoid over diuresis. K+ 3.5. Continue KCl 40 mEq po BID. Will give additional KCl 20 meq po this AM. Continue to monitor. Microcytic anemia however patient is not iron deficient by studies obtained 07/15. Hemoglobin electrophoresis will be sent. No signs of bleeding. Continue to monitor hemoglobin closely. Continue bowel motivation. Recheck labs in AM to monitor blood counts, electrolytes and renal function. 07/17/18 Mycoplasma pneumonia - azithromycin course complete and discontinued on . Will continue ceftriaxone for antimicrobial coverage. Patient remains afebrile. CXR on 07/16/18 showed slowly improving pneumonia. Patient continues to require significant oxygen supplementation at 7L per NC. Recommend continuing to encourage patient to utilize BiPAP while sleeping given abnormal ABG. Seen by Dr. Irwin ([facility]) - recommended continuation of nebulized treatments with the addition of Pulmicort BID and a short burst of prednisone 40mg daily x 5 days. PFT testing recommended as well. Continue oxygen as needed to maintain SAO2 >90%, weaning as able. Patient does not use home oxygen. D-dimer elevated at 997. Will discuss obtaining CTA chest to evaluate for PE with Dr. Carter. Hemoglobin improved to 8.0 following PRBC x 1 unit on 07/16/18. Decreased to 7.1 today. Asymptomatic. Continue to monitor closely. Anticipate will require additional PRBC. Still awaiting stool guaiacs. Hemoglobin electrophoresis pending due to marked microcytosis without iron deficiency. Anemia likely due to chronic blood loss given known history of polyposis. Continue bowel motivation. Bicarbonate slowly trending down. Diuretics remain on hold. Weight up from admission but remains stable. Will recheck labs in AM to monitor blood counts, electrolytes and renal function. 07/18/18 CTA revealed right lung PE. Heparin drip initiated for treatment. Treatment for Mycoplasma pneumonia complete - azithromycin discontinued on 07/16, ceftriaxone discontinued 07/18/18. Patient remains afebrile. Leukocytosis slowly improving. Continue to monitor. Patient continues to require oxygen supplementation at 5L per NC - improving. Recommend continuing to encourage patient to utilize BiPAP. Seen by Dr. Irwin ([facility]) - recommended continuation of nebulized treatments with the addition of Pulmicort BID and a short burst of prednisone 40mg daily x 5 days. PFT testing recommended as well. Continue oxygen as needed to maintain SAO2 >90%, weaning as able. Patient does not use home oxygen. Hemoglobin improved to 8.0 following PRBC x 1 unit on 07/16/18. Decreased to 7.0 today. Asymptomatic. Continue to monitor closely. Anticipate will require additional PRBC. Hemoglobin electrophoresis pending due to marked microcytosis without iron deficiency. Anemia likely due to chronic blood loss given known history of polyposis. Bowels finally moving. Continue bowel motivation. Bicarbonate slowly trending down. Diuretics remain on hold. Weight up from admission but remains stable. Will recheck labs in AM to monitor blood counts, electrolytes and renal function. 07/19/18 CTA revealed right lung PE. Heparin drip per protocol. Consider starting Warfarin? Treatment for Mycoplasma pneumonia complete - azithromycin discontinued on 07/16, ceftriaxone discontinued 07/18/18. Patient remains afebrile. Repeat CXR in AM. O2 remains at 5.5 liters/Bipap as tolerated. Wt up 7 kg- will diurese today. Seen by Dr. Irwin ([facility]) - recommended continuation of nebulized treatments with the addition of Pulmicort BID and a short burst of prednisone 40mg daily x 5 days. PFT testing recommended as well. Continue oxygen as needed to maintain SAO2 >90%, weaning as able. Patient does not use home oxygen. Will need to check overnight oximetry before DC given severe obesity, high risk for OHS/CICI. Hemoglobin improved to 8.0 following PRBC x 1 unit on 07/16/18. Stable at 7.1 today. Suspect some dilutional- will start Lasix. Iron panel is normal despite microcytic anemia. Anticoagulation will be problematic- need to monitor outpatient labs closely. Likely need to avoid NOAC given high risk of GI blood losses. Hemoglobin electrophoresis pending due to marked microcytosis without iron deficiency. Anemia likely due to chronic blood loss given known history of polyposis. Bowels finally moving. Requests decrease in laxatives. Bicarbonate slowly trending down. Will restart moderate dose Lasix and observe. Decreased KCL dosing as potassium trending up. Continue to follow labs closely. Order repeat CXR in AM for stability. Start bladder training. Encouraged mobility. DC SCDs at pt. request reasonable given full anticoagulation on board.
[2018-07-19] MEDS: PredniSONE 20 MG TABLET PO SCH (09:18)
[2018-07-19] MEDS: ZIPRASIDONE 20 MG CAPSULE PO SCH (09:20)
[2018-07-19] MEDS: FUROSEMIDE 20 MG/2 ML INJECTION IVP SCH ×2 (09:25→17:52)
[2018-07-19] MEDS: SALINE FLUSH 10ml SYRINGE IVF PRN ×2 (09:25→17:52)
[2018-07-19] MEDS: POLYETHYL GLYCOL 3350 17gm PACKET PO SCH (10:39)
--- NOTE | 2018-07-19 10:49 | Pharmacy Consult ---
Pharmacy Consult-Heparin - Laboratory Information Heparin Plt Count 196 T/MM3 (130-400) 07/19/18 04:01 APTT 87.4 SEC (24-36) H 07/19/18 10:18 HEPARIN THERAPY: PTT slightly above therapeutic range of 55-83. Will decrease regimen from 2200 units/hr to 2000 units/hr. Recheck PTT in am. Along with Platelet count. Thank you
--- NOTE | 2018-07-19 11:08 | Pulmonology Progress Note ---
Subjective Principal diagnosis: pneumonia Interval history: feels better mild white sputum no hemoptysis no chest pain breathing improved wearing bipap at night, likes it on 5 lpm O2 Exam Vital signs: Temperature 96.5 F L 07/19/18 08:08 Pulse Rate 76 07/19/18 08:08 Respiratory Rate 20 07/19/18 08:08 Blood Pressure 119/72 07/19/18 08:08 Pulse Oximetry 93 07/19/18 08:08 Inpatient Medications: Generic Name Dose Route Start Last Admin Trade Name Freq PRN Reason Stop Dose Admin Acetaminophen 650 mg 07/14/18 12:11 Tylenol PO QID PRN Discomfort Hydrocodone Bitart/Acetaminophen 1 tab 07/12/18 10:21 [place] 5/325 PO Q6H PRN Pain Al Hydroxide/Mg Hydroxide 30 ml 07/12/18 21:00 07/18/18 10:52 Maalox Plus PO 30 ml Q3H PRN Administration Indigestion Al Hydroxide/Mg Hydroxide 30 ml 07/15/18 19:06 Maalox Plus PO Q3H PRN Indigestion Albuterol Sulfate 2.5 mg 07/12/18 11:44 Proventil Neb (0.083%) AEROSOL Q2HR PRN Shortness of air/wheezing Albuterol/Ipratropium 3 ml 07/12/18 15:00 07/19/18 07:12 Duoneb AEROSOL 3 ml RTQID SELINA Administration Bisacodyl 10 mg 07/15/18 19:42 Dulcolax RECTALLY DAILY PRN Constipation Budesonide 0.5 mg 07/16/18 11:00 07/19/18 07:12 Pulmicort Inhalation AEROSOL 0.5 mg RTBID SELINA Administration Fluoxetine HCl 40 mg 07/13/18 21:00 07/18/18 21:20 Prozac PO 40 mg HS SELINA Administration Furosemide 40 mg 07/19/18 09:00 07/19/18 09:25 Lasix 20 Mg/2 Ml IVP 40 mg 0900,1700 SELINA Administration Guaifenesin/Dextromethorphan 10 ml 07/13/18 21:34 07/18/18 21:20 Robitussin Dm PO 10 ml Q4H PRN Administration Cough /Congestion Heparin Sodium (Porcine) 20,000 unit in 500 mls @ 50 mls/hr 07/17/18 17:48 10:39 Heparin Drip IV 55 mls/hr .Q10H SELINA 55 mls/hr Administration Protocol Levothyroxine Sodium 75 mcg 07/14/18 06:30 07/19/18 06:04 Synthroid PO 75 mcg ACB SELINA Administration Magnesium Hydroxide 30 ml 07/15/18 19:42 Mom PO DAILY PRN Constipation Morphine Sulfate 1 - 2 mg 07/12/18 10:21 Morphine Sulf 2 Mg Inj IVP Q2H PRN Moderate to Sever pain Ondansetron HCl 4 mg 07/12/18 10:21 Zofran IVP Q6H PRN Nausea &/or vomiting Polyethylene Glycol 17 gm 07/16/18 09:00 07/19/18 10:39 Miralax PO Not Given DAILY SELINA Potassium Chloride 20 meq 07/19/18 17:30 07/19/18 09:19 K-Dur 20 Meq Tablet PO 20 meq BIDWM SELINA Administration Prednisone 40 mg 07/16/18 11:00 07/19/18 09:18 Deltasone 20 Mg PO 07/20/18 23:59 40 mg WB SELINA Administration Sodium Chloride 10 - 80 ml 07/12/18 07:33 07/19/18 09:25 Iv Flush IVF 10 ml PRN PRN Administration Flushing Sodium Chloride 500 ml 07/16/18 08:17 07/18/18 09:32 Normal Saline IV 500 ml PRN PRN Administration Ziprasidone 40 mg 07/12/18 21:37 07/18/18 21:20 Geodon PO 40 mg HS SELINA Administration Ziprasidone 20 mg 07/13/18 09:00 07/19/18 09:20 Geodon PO 20 mg DAILY SELINA Administration Discontinued Medications Generic Name Dose Route Start Last Admin Trade Name Freq PRN Reason Stop Dose Admin Acetaminophen 325 - 650 mg 07/12/18 10:21 Tylenol [place] Q5H PRN Pain Albuterol/Ipratropium 3 ml 07/12/18 07:28 07/12/18 07:30 Duoneb AEROSOL 07/12/18 07:29 3 ml O ONE Administration Albuterol/Ipratropium 3 ml 07/12/18 11:17 Duoneb AEROSOL RTQID PRN Azithromycin 500 mg 07/15/18 09:00 07/16/18 08:36 Zithromax PO 07/17/18 08:59 500 mg DAILY SELINA Administration Ceftriaxone Sodium 1 g 07/12/18 07:45 07/12/18 17:26 Rocephin 1 Gm IM Not Given Q24H SELINA Ceftriaxone Sodium 1 gm 07/12/18 08:00 07/12/18 07:54 Rocephin 1 Gm Ivpb IV 07/12/18 08:01 1 gm O ONE Administration Ceftriaxone Sodium 1 gm 07/13/18 08:00 Rocephin 2 Gm IV Q24H SELINA Enoxaparin Sodium 40 mg 07/12/18 10:30 07/17/18 09:05 Lovenox SQ 40 mg DAILY SELINA Administration Fluoxetine HCl 40 mg 07/12/18 21:39 07/14/18 09:01 Prozac PO 40 mg DAILY SELINA Administration Furosemide 40 mg 07/13/18 17:00 07/15/18 08:07 Lasix 40 Mg/4 Ml IVP 40 mg 0900,1700 SELINA Administration Furosemide 40 mg 07/15/18 14:00 07/15/18 18:30 Lasix 40 Mg/4 Ml IVP 40 mg 0900,1400 SELINA Administration Heparin Sodium (Beef Lung) 8,000 unit 07/17/18 17:46 07/17/18 18:33 Heparin Bolus IVP 07/17/18 17:47 8,000 unit O ONE Administration Heparin Sodium (Beef Lung) 3,000 unit 07/18/18 04:08 07/18/18 04:33 Heparin Bolus IVP 07/18/18 04:09 3,000 unit O ONE Administration Heparin Sodium (Beef Lung) 4,000 unit 07/18/18 14:00 07/18/18 14:45 Heparin Bolus IVP 07/18/18 14:01 4,000 unit O ONE Administration Sodium Chloride 1,000 mls @ 999.9 mls/hr 07/12/18 07:37 07/12/18 09:00 Normal Saline IV 07/12/18 08:36 Infused .Q1H ONE Infusion Azithromycin 500 mg/ Sodium 250 mls @ 250 mls/hr 07/12/18 10:15 07/14/18 12: 00 Chloride IV Infused Q24H SELINA Infusion Sodium Chloride 1,000 mls @ 30 mls/hr 07/12/18 10:30 07/18/18 22:33 Normal Saline IV Not Given .Q24H SELINA Ceftriaxone Sodium 1 g/ Sodium 100 mls @ 200 mls/hr 07/12/18 08:00 07/18/18 10:00 Chloride IV Infused Q24H [facility] Infusion Sodium Chloride 500 mls @ 500 mls/hr 07/12/18 21:35 07/12/18 22:45 Normal Saline IV 07/12/18 22:34 Infused .Q1H ONE Infusion Heparin Sodium (Porcine) 20,000 unit in 500 mls @ 0 mls/hr 07/17/18 17:30 Heparin Drip IV .Q0M [facility] Protocol Per Protocol Magnesium Hydroxide 30 ml 07/13/18 09:00 07/18/18 09:32 Mom PO Not Given DAILY [facility] Pharmacy Consult each 07/14/18 13:03 Pharmacy Consult - Fall Risk 07/14/18 13:04 ONE TIME ONE Potassium Chloride 40 meq 07/14/18 12:14 07/18/18 17:58 K-Dur 20 Meq Tablet PO 40 meq BIDWM SELINA Administration Potassium Chloride 20 meq 07/16/18 08:12 07/16/18 11:52 K-Dur 20 Meq Tablet PO 07/16/18 08:13 20 meq O ONE Administration Senna/Docusate Sodium 1 tab 07/12/18 10:21 Senna Plus Tablet PO BID PRN Constipation Senna/Docusate Sodium 2 tab 07/15/18 21:00 07/18/18 21:20 Senna Plus Tablet PO Not Given BID SELINA - Constitutional no acute distress - Routine HEENT Exam Head: Present: normocephalic, atraumatic - Routine Neck Exam Present: supple - Routine Respiratory Exam Present: rhonchi, wheezes. Absent: accessory muscle use - Routine Cardiovascular Exam Present: RRR - Routine Abdominal Exam Present: soft. Absent: guarding - Urinary Catheter Management Urethral Cath placed during this visit: yes Insertion date: 07/12/18 Insertion time: 11:06 Results - Laboratory Findings Laboratory: Laboratory Results - last 48 hr 07/18/18 07/18/18 07/18/18 02:05 02:05 02:05 WBC 11.9 H RBC 2.66 L Hgb 7.0 L Hct 22.1 L MCV 83.1 MCH 26.3 MCHC 31.7 RDW Std Deviation 44.4 Plt Count 230 MPV 11.1 Immature Gran % (Auto) Not performed Neut % (Auto) Not performed Lymph % (Auto) Not performed [place] % (Auto) Not performed Eos % (Auto) Not performed Baso % (Auto) Not performed Neut # (Auto) Not performed Lymph # (Auto) Not performed [place] # (Auto) Not performed Eos # (Auto) Not performed Baso # (Auto) Not performed Abs Immat Gran (auto) Not performed Neutrophils % (Manual) 73.0 H Band Neutrophils % 2.0 Lymphocytes % (Manual) 21.0 L Monocytes % (Manual) 2.0 Eosinophils % (Manual) 1.0 Basophils % (Manual) 1.0 Metamyelocytes % Neutrophils # (Manual) 8.7 H Band Neutrophils # 0.2 Lymphocytes # (Manual) 2.5 Monocytes # (Manual) 0.2 Eosinophils # (Manual) 0.1 Basophils # (Manual) 0.1 Metamyelocytes # Hypochromasia 1+ Poikilocytosis 2+ Basophilic Stippling 1+ Anisocytosis 2+ Target Cells 1+ Tear Drop Cells 1+ Ovalocytes Rouleaux Schistocytes RBC Morph Comment Abnormal APTT 49.5 H Turbidity < 20 Sodium 143 Potassium 4.8 Chloride 100 Carbon Dioxide 37 H Anion Gap 6 BUN 18.0 H Creatinine 0.7 Estimated Creat Clear 124 GFR Calculation 88 BUN/Creatinine Ratio 26 Glucose 136 H Calculated Osmolality 279 Calcium 8.3 L Icterus Index < 2 Specimen Hemolysis < 15 Stool Occult Blood 07/18/18 07/18/18 07/18/18 11:46 13:53 21:43 WBC RBC Hgb Hct MCV MCH MCHC RDW Std Deviation Plt Count MPV Immature Gran % (Auto) Neut % (Auto) Lymph % (Auto) [place] % (Auto) Eos % (Auto) Baso % (Auto) Neut # (Auto) Lymph # (Auto) [place] # (Auto) Eos # (Auto) Baso # (Auto) Abs Immat Gran (auto) Neutrophils % (Manual) Band Neutrophils % Lymphocytes % (Manual) Monocytes % (Manual) Eosinophils % (Manual) Basophils % (Manual) Metamyelocytes % Neutrophils # (Manual) Band Neutrophils # Lymphocytes # (Manual) Monocytes # (Manual) Eosinophils # (Manual) Basophils # (Manual) Metamyelocytes # Hypochromasia Poikilocytosis Basophilic Stippling Anisocytosis Target Cells Tear Drop Cells Ovalocytes Rouleaux Schistocytes RBC Morph Comment APTT 52.6 H 67.4 H Turbidity Sodium Potassium Chloride Carbon Dioxide Anion Gap BUN Creatinine Estimated Creat Clear GFR Calculation BUN/Creatinine Ratio Glucose Calculated Osmolality Calcium Icterus Index Specimen Hemolysis Stool Occult Blood Negative 07/19/18 07/19/18 07/19/18 04:01 04:01 10:18 WBC 11.5 H RBC 2.93 L Hgb 7.1 L Hct 25.1 L D MCV 85.7 MCH 24.2 L MCHC 28.3 L RDW Std Deviation 63.2 H Plt Count 196 MPV 11.5 Immature Gran % (Auto) Not performed Neut % (Auto) Not performed Lymph % (Auto) Not performed [place] % (Auto) Not performed Eos % (Auto) Not performed Baso % (Auto) Not performed Neut # (Auto) Not performed Lymph # (Auto) Not performed [place] # (Auto) Not performed Eos # (Auto) Not performed Baso # (Auto) Not performed Abs Immat Gran (auto) Not performed Neutrophils % (Manual) 74.0 H Band Neutrophils % 5.0 Lymphocytes % (Manual) 13.0 L Monocytes % (Manual) 6.0 Eosinophils % (Manual) 1.0 Basophils % (Manual) Metamyelocytes % 1.0 H Neutrophils # (Manual) 8.5 H Band Neutrophils # 0.6 Lymphocytes # (Manual) 1.5 Monocytes # (Manual) 0.7 Eosinophils # (Manual) 0.1 Basophils # (Manual) Metamyelocytes # 0.1 Hypochromasia 1+ Poikilocytosis 2+ Basophilic Stippling Anisocytosis 3+ Target Cells Tear Drop Cells 1+ Ovalocytes 1+ Rouleaux Present Schistocytes 1+ RBC Morph Comment Abnormal APTT 87.4 H Turbidity < 20 Sodium 141 Potassium 4.9 Chloride 97 L Carbon Dioxide 34 H Anion Gap 10 BUN 14.0 Creatinine 0.5 L D Estimated Creat Clear 175 GFR Calculation 130 BUN/Creatinine Ratio 28 H Glucose 129 H Calculated Osmolality 274 Calcium 8.3 L Icterus Index < 2 Specimen Hemolysis < 15 Stool Occult Blood - Diagnostic Findings CT scan - chest: report reviewed, image reviewed Assessment and Plan (1) Mycoplasma pneumonia Status: Acute Assessment and plan: Associated with significant wheeze. PFT showed mixed defect, poor coordination for study overall improving Current Visit: Yes (2) Respiratory failure with hypoxia Status: Acute Assessment and plan: improved. wean O2 as tolerated Current Visit: Yes (3) Pulmonary embolism Status: Acute Assessment and plan: tolerating heparin drip. transition to oral anticoagulant. PA pressures no elevated on echo. suggest minimum 3 months of anticoagulation check whole-leg venous dopplers Current Visit: Yes - Time Spent With Patient Total time spent is greater than 50% in coordination of care (as documented) at patient's floor/unit and/or counseling patient: less than 15 minutes
[2018-07-19] MEDS: MAG-AL + SIM ORAL LIQUID 30ml PO PRN ×2 (13:15→18:28)
[2018-07-19] MEDS: ENOXAPARIN 120 MG/0.8 ML INJECTION SQ SCH (17:51)
[2018-07-19] MEDS: FLUoxetine 20 MG CAPSULE PO SCH (21:11)
[2018-07-19] MEDS: ZIPRASIDONE 40 MG CAPSULE PO SCH (21:11)
[2018-07-19] MEDS: GUAIFENESIN/DM 5ml ORAL LIQUID PO PRN (21:12)
[2018-07-20] MEDS: ENOXAPARIN 120 MG/0.8 ML INJECTION SQ SCH (06:24)
[2018-07-20] MEDS: LEVOTHYROXINE 75 MCG TABLET PO SCH (06:24)
[2018-07-20] MEDS: BUDESONIDE INH.SOLN 0.5mg/2ml NEB AEROSOL SCH ×2 (08:08→18:43)
[2018-07-20] MEDS: ALBUTEROL/IPRATROPIUM 2.5mg-0.5mg/3ml NEB AEROSOL SCH ×4 (08:08→18:43)
[2018-07-20] MEDS: SENNA + DOCUSATE TABLET PO SCH (09:07)
[2018-07-20] MEDS: GUAIFENESIN/DM 5ml ORAL LIQUID PO PRN ×3 (11:00→21:34)
[2018-07-20] MEDS: FUROSEMIDE 20 MG/2 ML INJECTION IVP SCH (11:00)
[2018-07-20] MEDS: PredniSONE 20 MG TABLET PO SCH (11:00)
[2018-07-20] MEDS: ZIPRASIDONE 20 MG CAPSULE PO SCH (11:00)
[2018-07-20] MEDS: POLYETHYL GLYCOL 3350 17gm PACKET PO SCH (11:01)
[2018-07-20] MEDS: SALINE FLUSH 10ml SYRINGE IVF PRN (11:02)
--- NOTE | 2018-07-20 11:20 | Pulmonology Progress Note ---
Subjective Principal diagnosis: pneumonia Interval history: Pt sitting up in bed, states she has white phlegm with cough, no SOB noted. On 5L per NC and feels she is doing ok. Exam Vital signs: Temperature 97.3 F 07/20/18 07:38 Pulse Rate 71 07/20/18 07:38 Respiratory Rate 20 07/20/18 08:09 Blood Pressure 125/67 07/20/18 07:38 Pulse Oximetry 95 07/20/18 08:09 Inpatient Medications: Generic Name Dose Route Start Last Admin Trade Name Freq PRN Reason Stop Dose Admin Acetaminophen 650 mg 07/14/18 12:11 Tylenol PO QID PRN Discomfort Hydrocodone Bitart/Acetaminophen 1 tab 07/12/18 10:21 [place] 5/325 PO Q6H PRN Pain Al Hydroxide/Mg Hydroxide 30 ml 07/12/18 21:00 07/19/18 18:28 Maalox Plus PO 30 ml Q3H PRN Administration Indigestion Al Hydroxide/Mg Hydroxide 30 ml 07/15/18 19:06 Maalox Plus PO Q3H PRN Indigestion Albuterol Sulfate 2.5 mg 07/12/18 11:44 07/20/18 01:54 Proventil Neb (0.083%) AEROSOL 2.5 mg Q2HR PRN Administration Shortness of air/wheezing Albuterol/Ipratropium 3 ml 07/12/18 15:00 07/20/18 08:08 Duoneb AEROSOL 3 ml RTQID SELINA Administration Bisacodyl 10 mg 07/15/18 19:42 Dulcolax RECTALLY DAILY PRN Constipation Budesonide 0.5 mg 07/16/18 11:00 07/20/18 08:08 Pulmicort Inhalation AEROSOL 0.5 mg RTBID SELINA Administration Enoxaparin Sodium 120 mg 07/19/18 18:00 07/20/18 06:24 Lovenox SQ 120 mg Q12H SELINA Administration Fluoxetine HCl 40 mg 07/13/18 21:00 07/19/18 21:11 Prozac PO 40 mg HS SELINA Administration Furosemide 40 mg 07/19/18 09:00 07/20/18 11:00 Lasix 20 Mg/2 Ml IVP 40 mg 0900,1700 SELINA Administration Guaifenesin/Dextromethorphan 10 ml 07/13/18 21:34 07/20/18 11:00 Robitussin Dm PO 10 ml Q4H PRN Administration Cough /Congestion Levothyroxine Sodium 75 mcg 07/14/18 06:30 07/20/18 06:24 Synthroid PO 75 mcg ACB SELINA Administration Magnesium Hydroxide 30 ml 07/15/18 19:42 Mom PO DAILY PRN Constipation Morphine Sulfate 1 - 2 mg 07/12/18 10:21 Morphine Sulf 2 Mg Inj IVP Q2H PRN Moderate to Sever pain Ondansetron HCl 4 mg 07/12/18 10:21 Zofran IVP Q6H PRN Nausea &/or vomiting Polyethylene Glycol 17 gm 07/16/18 09:00 07/20/18 11:01 Miralax PO 17 gm DAILY SELINA Administration Potassium Chloride 20 meq 07/19/18 17:30 07/20/18 11:01 K-Dur 20 Meq Tablet PO 20 meq BIDWM SELINA Administration Prednisone 40 mg 07/16/18 11:00 07/20/18 11:00 Deltasone 20 Mg PO 07/20/18 23:59 40 mg WB SELINA Administration Sodium Chloride 10 - 80 ml 07/12/18 07:33 07/20/18 11:02 Iv Flush IVF 30 ml PRN PRN Administration Flushing Sodium Chloride 500 ml 07/16/18 08:17 07/18/18 09:32 Normal Saline IV 500 ml PRN PRN Administration Ziprasidone 40 mg 07/12/18 21:37 07/19/18 21:11 Geodon PO 40 mg HS SELINA Administration Ziprasidone 20 mg 07/13/18 09:00 07/20/18 11:00 Geodon PO 20 mg DAILY SELINA Administration Discontinued Medications Generic Name Dose Route Start Last Admin Trade Name Freq PRN Reason Stop Dose Admin Acetaminophen 325 - 650 mg 07/12/18 10:21 Tylenol [place] Q5H PRN Pain Albuterol/Ipratropium 3 ml 07/12/18 07:28 07/12/18 07:30 Duoneb AEROSOL 07/12/18 07:29 3 ml O ONE Administration Albuterol/Ipratropium 3 ml 07/12/18 11:17 Duoneb AEROSOL RTQID PRN Azithromycin 500 mg 07/15/18 09:00 07/16/18 08:36 Zithromax PO 07/17/18 08:59 500 mg DAILY SELINA Administration Ceftriaxone Sodium 1 g 07/12/18 07:45 07/12/18 17:26 Rocephin 1 Gm IM Not Given Q24H SELINA Ceftriaxone Sodium 1 gm 07/12/18 08:00 07/12/18 07:54 Rocephin 1 Gm Ivpb IV 07/12/18 08:01 1 gm O ONE Administration Ceftriaxone Sodium 1 gm 07/13/18 08:00 Rocephin 2 Gm IV Q24H SELINA Enoxaparin Sodium 40 mg 07/12/18 10:30 07/17/18 09:05 Lovenox SQ 40 mg DAILY SELINA Administration Fluoxetine HCl 40 mg 07/12/18 21:39 07/14/18 09:01 Prozac PO 40 mg DAILY SELINA Administration Furosemide 40 mg 07/13/18 17:00 07/15/18 08:07 Lasix 40 Mg/4 Ml IVP 40 mg 0900,1700 SELINA Administration Furosemide 40 mg 07/15/18 14:00 07/15/18 18:30 Lasix 40 Mg/4 Ml IVP 40 mg 0900,1400 SELINA Administration Heparin Sodium (Beef Lung) 8,000 unit 07/17/18 17:46 07/17/18 18:33 Heparin Bolus IVP 07/17/18 17:47 8,000 unit O ONE Administration Heparin Sodium (Beef Lung) 3,000 unit 07/18/18 04:08 07/18/18 04:33 Heparin Bolus IVP 07/18/18 04:09 3,000 unit O ONE Administration Heparin Sodium (Beef Lung) 4,000 unit 07/18/18 14:00 07/18/18 14:45 Heparin Bolus IVP 07/18/18 14:01 4,000 unit O ONE Administration Sodium Chloride 1,000 mls @ 999.9 mls/hr 07/12/18 07:37 07/12/18 09:00 Normal Saline IV 07/12/18 08:36 Infused .Q1H ONE Infusion Azithromycin 500 mg/ Sodium 250 mls @ 250 mls/hr 07/12/18 10:15 07/14/18 12: 00 Chloride IV Infused Q24H SELINA Infusion Sodium Chloride 1,000 mls @ 30 mls/hr 07/12/18 10:30 07/18/18 22:33 Normal Saline IV Not Given .Q24H SELINA Ceftriaxone Sodium 1 g/ Sodium 100 mls @ 200 mls/hr 07/12/18 08:00 07/18/18 10:00 Chloride IV Infused Q24H SELINA Infusion Sodium Chloride 500 mls @ 500 mls/hr 07/12/18 21:35 07/12/18 22:45 Normal Saline IV 07/12/18 22:34 Infused .Q1H ONE Infusion Heparin Sodium (Porcine) 20,000 unit in 500 mls @ 0 mls/hr 07/17/18 17:30 Heparin Drip IV .Q0M SELINA Protocol Per Protocol Heparin Sodium (Porcine) 20,000 unit in 500 mls @ 50 mls/hr 07/17/18 17:48 17:54 Heparin Drip IV Infused .Q10H SELINA Titration Protocol Magnesium Hydroxide 30 ml 07/13/18 09:00 07/20/18 09:07 Mom PO Not Given DAILY [facility] Pharmacy Consult each 07/14/18 13:03 Pharmacy Consult - Fall Risk 07/14/18 13:04 ONE TIME ONE Potassium Chloride 40 meq 07/14/18 12:14 07/20/18 09:07 K-Dur 20 Meq Tablet PO Not Given BIDWM [facility] Potassium Chloride 20 meq 07/16/18 08:12 07/16/18 11:52 K-Dur 20 Meq Tablet PO 07/16/18 08:13 20 meq O ONE Administration Senna/Docusate Sodium 1 tab 07/12/18 10:21 Senna Plus Tablet PO BID PRN Constipation Senna/Docusate Sodium 2 tab 07/15/18 21:00 07/20/18 09:07 Senna Plus Tablet PO Not Given BID SELINA - Constitutional no acute distress, obese, cooperative - Routine HEENT Exam Head: Present: normocephalic, atraumatic Eye: Present: EOMI, PERRL ENT: Present: mucous membranes moist - Routine Neck Exam Present: supple, full ROM, trachea midline - Routine Respiratory Exam Present: crackles. Absent: accessory muscle use, patient mechanically ventilated Comments: crackles bases - Routine Cardiovascular Exam Present: RRR, S1, S2, no murmur - Routine Abdominal Exam Present: soft, normoactive bowel sounds - Routine Extremities Exam Present: edema, non tender, full ROM. Absent: cyanosis, clubbing - Routine Back/Spine/Pelvis Exam Back/Spine: Present: full ROM - Routine Skin Exam Present: intact, cyanosis, dry - Routine Neurological Exam Present: alert, oriented X3, CN II-XII intact - Routine Psychiatric Exam Present: normal affect, normal thought process - Urinary Catheter Management Urethral Cath placed during this visit: yes Insertion date: 07/12/18 Insertion time: 11:06 Results - Laboratory Findings Laboratory: Laboratory Results - last 48 hr 07/18/18 07/18/18 07/18/18 11:46 13:53 13:53 WBC RBC Hgb Hct MCV MCH MCHC RDW Std Deviation Plt Count MPV Immature Gran % (Auto) Neut % (Auto) Lymph % (Auto) [place] % (Auto) Eos % (Auto) Baso % (Auto) Neut # (Auto) Lymph # (Auto) [place] # (Auto) Eos # (Auto) Baso # (Auto) Abs Immat Gran (auto) Neutrophils % (Manual) Band Neutrophils % Lymphocytes % (Manual) Monocytes % (Manual) Eosinophils % (Manual) Metamyelocytes % Neutrophils # (Manual) Band Neutrophils # Lymphocytes # (Manual) Monocytes # (Manual) Eosinophils # (Manual) Metamyelocytes # Hypochromasia Poikilocytosis Anisocytosis Tear Drop Cells Ovalocytes Rouleaux Schistocytes RBC Morph Comment APTT 52.6 H Turbidity Sodium Potassium Chloride Carbon Dioxide Anion Gap BUN Creatinine Estimated Creat Clear GFR Calculation BUN/Creatinine Ratio Glucose Calculated Osmolality Calcium Phosphorus Magnesium Icterus Index Albumin Specimen Hemolysis Stool Occult Blood Cancelled Negative 07/18/18 07/19/18 07/19/18 21:43 04:01 04:01 WBC 11.5 H RBC 2.93 L Hgb 7.1 L Hct 25.1 L D MCV 85.7 MCH 24.2 L MCHC 28.3 L RDW Std Deviation 63.2 H Plt Count 196 MPV 11.5 Immature Gran % (Auto) Not performed Neut % (Auto) Not performed Lymph % (Auto) Not performed [place] % (Auto) Not performed Eos % (Auto) Not performed Baso % (Auto) Not performed Neut # (Auto) Not performed Lymph # (Auto) Not performed [place] # (Auto) Not performed Eos # (Auto) Not performed Baso # (Auto) Not performed Abs Immat Gran (auto) Not performed Neutrophils % (Manual) 74.0 H Band Neutrophils % 5.0 Lymphocytes % (Manual) 13.0 L Monocytes % (Manual) 6.0 Eosinophils % (Manual) 1.0 Metamyelocytes % 1.0 H Neutrophils # (Manual) 8.5 H Band Neutrophils # 0.6 Lymphocytes # (Manual) 1.5 Monocytes # (Manual) 0.7 Eosinophils # (Manual) 0.1 Metamyelocytes # 0.1 Hypochromasia 1+ Poikilocytosis 2+ Anisocytosis 3+ Tear Drop Cells 1+ Ovalocytes 1+ Rouleaux Present Schistocytes 1+ RBC Morph Comment Abnormal APTT 67.4 H Turbidity < 20 Sodium 141 Potassium 4.9 Chloride 97 L Carbon Dioxide 34 H Anion Gap 10 BUN 14.0 Creatinine 0.5 L D Estimated Creat Clear 175 GFR Calculation 130 BUN/Creatinine Ratio 28 H Glucose 129 H Calculated Osmolality 274 Calcium 8.3 L Phosphorus Magnesium Icterus Index < 2 Albumin Specimen Hemolysis < 15 Stool Occult Blood 07/19/18 07/20/18 07/20/18 10:18 03:59 03:59 WBC 8.7 RBC 2.48 L Hgb 7.3 L Hct 20.8 L D MCV 83.9 MCH 29.4 MCHC 35.1 RDW Std Deviation 48.2 Plt Count 163 MPV 11.0 Immature Gran % (Auto) 0.8 H Neut % (Auto) 74.4 H Lymph % (Auto) 20.9 L [place] % (Auto) 2.9 Eos % (Auto) 0.9 Baso % (Auto) 0.1 Neut # (Auto) 6.4 Lymph # (Auto) 1.8 [place] # (Auto) 0.3 Eos # (Auto) 0.1 Baso # (Auto) 0.0 Abs Immat Gran (auto) 0.07 H Neutrophils % (Manual) Band Neutrophils % Lymphocytes % (Manual) Monocytes % (Manual) Eosinophils % (Manual) Metamyelocytes % Neutrophils # (Manual) Band Neutrophils # Lymphocytes # (Manual) Monocytes # (Manual) Eosinophils # (Manual) Metamyelocytes # Hypochromasia Poikilocytosis Anisocytosis Tear Drop Cells Ovalocytes Rouleaux Schistocytes RBC Morph Comment APTT 87.4 H Turbidity < 20 Sodium 140 Potassium 3.8 D Chloride 93 L Carbon Dioxide 38 H Anion Gap 9 BUN 11.0 Creatinine 0.6 L Estimated Creat Clear 145 GFR Calculation 105 BUN/Creatinine Ratio 18 Glucose 237 H Calculated Osmolality 276 Calcium 8.1 L Phosphorus 4.1 Magnesium 2.3 Icterus Index < 2 Albumin 3.1 L Specimen Hemolysis < 15 Stool Occult Blood - Diagnostic Findings Chest x-ray: image reviewed (stable CXR, improved infiltrates with cont vascular congestion.) Assessment and Plan (1) Acute respiratory failure with hypoxia Status: Acute Assessment and plan: Currently on )2 at 5L per [place], no O2 at home. On BT's with A/A QID, pulmicort BID and prednisone 40mg x 5 days. Improved wheezing and overall doing better. Used O2 last noc and not the bipap. Receiving lasix, good UOP yesterday, cont to follow Current Visit: Yes (2) Mycoplasma pneumonia Status: Acute Assessment and plan: s/p abx CXR improved infiltrates, white sputum noted. Current Visit: Yes (3) Pulmonary embolism Status: Acute Assessment and plan: s/p heparin, now on lovenox, will need oral anticoagulation x 3 months. PA pressures 26 and no RV strain noted on 07/14 2D echo. Current Visit: Yes - Time Spent With Patient Total time spent is greater than 50% in coordination of care (as documented) at patient's floor/unit and/or counseling patient: less than 15 minutes
--- NOTE | 2018-07-20 11:44 | Progress Note ---
- Date 07/20/18 Subjective: Resting comfortably. In a very good mood. Says her breathing and cough are better. Had a bowel movement this am. O2 titrated down to 3L. d/w her NOAC vs. warfarin. She likes the idea of not having blood work done, in part because she is going to [place] for a month in mid-Jul. Objective Vital signs: Temperature 97.3 F 07/20/18 07:38 Pulse Rate 71 07/20/18 07:38 Respiratory Rate 20 07/20/18 08:09 Blood Pressure 125/67 07/20/18 07:38 Pulse Oximetry 92 07/20/18 11:27 Rhythm: Normal Sinus Rhythm Height/Weight/BMI: Height 5 ft 4 in Weight 125.2 kg Body Mass Index 46.0 - Constitutional Present: no acute distress - Routine HEENT Exam Head: Present: normocephalic, atraumatic Eye: Present: EOMI, PERRL ENT: Present: mucous membranes moist - Routine Respiratory Exam Present: decreased breath sounds - Routine Cardiovascular Exam Present: RRR, S1, S2 - Routine Abdominal Exam Present: soft, normoactive bowel sounds, non distended, non tender - Routine Extremities Exam Present: no edema - Routine Neurological Exam Present: alert, oriented X3 - Routine Psychiatric Exam Present: normal affect, cooperative Results - Labs CBC & Chem 7: 07/20/18 03:59 07/20/18 03:59 Microbiology Results: Microbiology 07/12/18 07:43 Peripheral/Iv Start Blood Culture - Final No Growth After 5 Days 07/12/18 07:47 Peripheral/Iv Start Blood Culture - Final No Growth After 5 Days 07/12/18 11:09 Urine Legionella Urinary Antigen - Final Assessment and Plan (1) Mycoplasma pneumonia Current visit: Yes Status: Acute (2) Acute respiratory failure with hypoxia Current visit: Yes Status: Acute Assessment and Plan: Assessment: Acute hypoxemic respiratory failure. Sepsis, originating from pneumonia. Right lower lobe PE. Bilateral lower lobe pneumonia, positive mycoplasma pneumoniae PCR Acute renal insufficiency, likely secondary to dehydration, resolved Anemia (POA). Schizoaffective disorder Anxiety Hypothyroidism GERD History of adenomatous polyposis of colon, 17 polyps noted on previous colonoscopy 03/28/2017. Osteoarthritis Morbid obesity, BMI 46 Hypokalemia-07/14/18 Plan: CTA revealed right lung PE. Heparin drip per protocol. Coagulation has some risk b/c of her polyposis syndrome. Patient is in favor of NOAC. Because of concerns for monitoring warfarin/INR and the problems a supratherapeutic INR pose, will start Xarelto. d/w patient that she must pay attention for any bleeding. d/w Dr. Albright who thinks it is OK to go ahead and anticoagulate her. Hemoglobin reviewed and up to 7.3. No sign of bleeding. Treatment for Mycoplasma pneumonia complete - azithromycin discontinued on 07/16, ceftriaxone discontinued 07/18/18. Patient remains afebrile. Repeat CXR in AM. O2 being titrated down. remains at 5.5 liters/Bipap as tolerated. Wt up 7 kg- will diurese today. Pulm recommendeds continuation of nebulized treatments with the addition of Pulmicort BID and a short burst of prednisone 40mg daily x 5 days. PFT testing recommended as well. d/w pulm. Will need to check overnight oximetry before DC given severe obesity, high risk for OHS/CICI. Bicarbonate has trended up with resumption of Lasix. Observe. Continue to follow labs closely. Started bladder training. Encouraged mobility. DVT Prophylaxis: Heparin drip GI Prophylaxis: Protonix Resuscitation Status: Full Code External Problems Reviewed(CCD)?: No - Physician Narrative Narrative: Date: 07/20/18 Time: 1140 Hospital Course Summary Disclaimer: The visit summary below is not to be considered part of the above Progress Note. Hospital Course: 07/12/2018 Patient admitted to CCU with acute hypoxemic respiratory failure. ABG requested. Prolactin elevated at 53 although lactic acid was 1.7. We will recheck lactic acid in 6 hours. Patient received 1 L IV fluid normal saline bolus in the emergency room. Started on IV fluids normal saline at 100 mL per hour for 1 L and thereafter will decrease to 75 mL per hour. Respiratory panel shows positive mycoplasma pneumoniae PCR. Blood culture 2, sputum culture, Legionella urine antigen results awaited. Antibiotic coverage with IV Rocephin 1 g daily and IV azithromycin 500 mg daily. DuoNeb 3 mL nebulization treatment every 6 hours scheduled. Albuterol 0.083% nebulization every 2 hours as needed for wheezing or shortness of breath. Cautious IV fluid replacement in the context of concern for underlying CHF. BNP 28879. Echocardiogram ordered next available. Serum troponin 0.157, likely secondary to demand ischemia. Repeat EKG and cardiac enzymes every 6 hours 2 ordered. We will continue home medication levothyroxine, ziprasidone, fluoxetine. Patient placed on 3 g salt, mechanical soft diet with nectar thickened liquids. We will advance diet as tolerated. Tylenol 650 mg by mouth every 5 hours as needed for mild pain or fever. IV morphine 12 milligram every 2 hours as needed for severe pain. Patient reportedly had appointment for repeat colonoscopy last week with Dr. Albright but missed her appointment as she was feeling sick. Will need appointment rescheduled at the time of discharge. 07/13/2018 Patient admitted to CCU with acute hypoxemic respiratory failure. ABG performed after admission on 07/12/2018 on BiPAP 15/5 cm H2O with FiO2 50% shows pH 7.496 , PCO2 33, PO2 120, HCO3 33 with oxygen saturation 99%. Lactic acid 1.7 on admission, later on decreased slightly to 1.5. Patient has +4 L fluid balance along with 1.5 KG weight gain from admission. IV fluid rate decreased to 30 mL per hour. BNP 70277 on admission, 1989 today. Echocardiogram ordered next available. Patient started on IV Lasix 40 mg twice a day. Will closely monitor intake and output, daily weights. Respiratory panel shows positive mycoplasma pneumoniae PCR. Legionella urine antigen negative. Blood culture 2, sputum culture results awaited. Antibiotic coverage with IV Rocephin 1 g daily and IV azithromycin 500 mg daily. DuoNeb 3 mL nebulization treatment every 6 hours scheduled. Albuterol 0.083% nebulization every 2 hours as needed for wheezing or shortness of breath. We will provide BiPAP 15/5 cm H2O with FiO2 50% continuously at nighttime. Alternating with high flow nasal cannula 68 liters as needed to maintain oxygen saturations more than 90% during daytime. Serum troponin 0.157, repeat serum troponin improved to 0.115. Likely secondary to demand ischemia. 07/14/18 Day 3 antibiotics for mycoplasma pneumonia; patient describes clearing sputum and feeling less short of breath with treatment. Continue ceftriaxone, azithromycin and switch to oral administration to complete 5 day course. Oxygen being titrated-decreased from 10 L to 6 L while awake; continues to require BiPAP at night. Continue diuresis, proBNP approaching normal. Renal function and hepatic function have improved with adequate oxygenation and diuresis. Potassium being replaced orally. 07/15/18 Day 4 antibiotics for mycoplasma pneumonia; continue ceftriaxone, azithromycin and switch to oral administration to complete 5 day course. Chest x-ray in a.m. On 6 L oxygen earlier in the day but has been titrated back to 10 L this evening ; resume BiPAP this evening. Oxygen demand seems excessive at this point in the hospital course. Continue diuresis with oral potassium replacement. Echocardiogram with EF 65%, normal diastolic function, no significant valve disease, PAP 26 mm. Microcytic anemia however patient is not iron deficient by studies obtained today. Hemoglobin electrophoresis will be sent 07/16/18 Day 5 antibiotics for mycoplasma pneumonia - continue ceftriaxone IV and azithromycin PO--> completed 5 days of azithromycin, discontinued. CXR this AM - pending. On 6 L oxygen currently and breathing easily. Only on NC during the night - did not use Bipap. Hgb 6.5 this morning. Will give 1 unit PRBC now and recheck hgb following transfusion. CO2 trending up (42 today). SCr and BUN stable. Continue adequate oxygenation. >3L urinary output daily via hoffman. Weight slowly tending down and BNP trending down. Continue diuresis. Consider decreasing to Lasix dosing to avoid over diuresis. K+ 3.5. Continue KCl 40 mEq po BID. Will give additional KCl 20 meq po this AM. Continue to monitor. Microcytic anemia however patient is not iron deficient by studies obtained 07/15. Hemoglobin electrophoresis will be sent. No signs of bleeding. Continue to monitor hemoglobin closely. Continue bowel motivation. Recheck labs in AM to monitor blood counts, electrolytes and renal function. 07/17/18 Mycoplasma pneumonia - azithromycin course complete and discontinued on . Will continue ceftriaxone for antimicrobial coverage. Patient remains afebrile. CXR on 07/16/18 showed slowly improving pneumonia. Patient continues to require significant oxygen supplementation at 7L per NC. Recommend continuing to encourage patient to utilize BiPAP while sleeping given abnormal ABG. Seen by Dr. Irwin (pul) - recommended continuation of nebulized treatments with the addition of Pulmicort BID and a short burst of prednisone 40mg daily x 5 days. PFT testing recommended as well. Continue oxygen as needed to maintain SAO2 >90%, weaning as able. Patient does not use home oxygen. D-dimer elevated at 997. Will discuss obtaining CTA chest to evaluate for PE with Dr. Carter. Hemoglobin improved to 8.0 following PRBC x 1 unit on 07/16/18. Decreased to 7.1 today. Asymptomatic. Continue to monitor closely. Anticipate will require additional PRBC. Still awaiting stool guaiacs. Hemoglobin electrophoresis pending due to marked microcytosis without iron deficiency. Anemia likely due to chronic blood loss given known history of polyposis. Continue bowel motivation. Bicarbonate slowly trending down. Diuretics remain on hold. Weight up from admission but remains stable. Will recheck labs in AM to monitor blood counts, electrolytes and renal function. 07/18/18 CTA revealed right lung PE. Heparin drip initiated for treatment. Treatment for Mycoplasma pneumonia complete - azithromycin discontinued on 07/16, ceftriaxone discontinued 07/18/18. Patient remains afebrile. Leukocytosis slowly improving. Continue to monitor. Patient continues to require oxygen supplementation at 5L per NC - improving. Recommend continuing to encourage patient to utilize BiPAP. Seen by Dr. Irwin ([facility]) - recommended continuation of nebulized treatments with the addition of Pulmicort BID and a short burst of prednisone 40mg daily x 5 days. PFT testing recommended as well. Continue oxygen as needed to maintain SAO2 >90%, weaning as able. Patient does not use home oxygen. Hemoglobin improved to 8.0 following PRBC x 1 unit on 07/16/18. Decreased to 7.0 today. Asymptomatic. Continue to monitor closely. Anticipate will require additional PRBC. Hemoglobin electrophoresis pending due to marked microcytosis without iron deficiency. Anemia likely due to chronic blood loss given known history of polyposis. Bowels finally moving. Continue bowel motivation. Bicarbonate slowly trending down. Diuretics remain on hold. Weight up from admission but remains stable. Will recheck labs in AM to monitor blood counts, electrolytes and renal function. 07/19/18 CTA revealed right lung PE. Heparin drip per protocol. Consider starting Warfarin? Treatment for Mycoplasma pneumonia complete - azithromycin discontinued on 07/16, ceftriaxone discontinued 07/18/18. Patient remains afebrile. Repeat CXR in AM. O2 remains at 5.5 liters/Bipap as tolerated. Wt up 7 kg- will diurese today. Seen by Dr. Irwin ([facility]) - recommended continuation of nebulized treatments with the addition of Pulmicort BID and a short burst of prednisone 40mg daily x 5 days. PFT testing recommended as well. Continue oxygen as needed to maintain SAO2 >90%, weaning as able. Patient does not use home oxygen. Will need to check overnight oximetry before DC given severe obesity, high risk for OHS/CICI. Hemoglobin improved to 8.0 following PRBC x 1 unit on 07/16/18. Stable at 7.1 today. Suspect some dilutional- will start Lasix. Iron panel is normal despite microcytic anemia. Anticoagulation will be problematic- need to monitor outpatient labs closely. Likely need to avoid NOAC given high risk of GI blood losses. Hemoglobin electrophoresis pending due to marked microcytosis without iron deficiency. Anemia likely due to chronic blood loss given known history of polyposis. Bowels finally moving. Requests decrease in laxatives. Bicarbonate slowly trending down. Will restart moderate dose Lasix and observe. Decreased KCL dosing as potassium trending up. Continue to follow labs closely. Order repeat CXR in AM for stability. Start bladder training. Encouraged mobility. DC SCDs at pt. request reasonable given full anticoagulation on board. 07/20 CTA revealed right lung PE. Heparin drip per protocol. Coagulation has some risk b/c of her polyposis syndrome. Patient is in favor of NOAC. Because of concerns for monitoring warfarin/INR and the problems a supratherapeutic INR pose, will start Xarelto. d/w patient that she must pay attention for any bleeding. d/w Dr. Albright who thinks it is OK to go ahead and anticoagulate her. Hemoglobin reviewed and up to 7.3. No sign of bleeding. Treatment for Mycoplasma pneumonia complete - azithromycin discontinued on 07/16, ceftriaxone discontinued 07/18/18. Patient remains afebrile. Repeat CXR in AM. O2 being titrated down. remains at 5.5 liters/Bipap as tolerated. Wt up 7 kg- will diurese today. Pulm recommendeds continuation of nebulized treatments with the addition of Pulmicort BID and a short burst of prednisone 40mg daily x 5 days. PFT testing recommended as well. d/w pulm. Will need to check overnight oximetry before DC given severe obesity, high risk for OHS/CICI. Bicarbonate has trended up with resumption of Lasix. Observe. Continue to follow labs closely. Started bladder training. Encouraged mobility.
--- NOTE | 2018-07-20 14:14 | XRay Report ---
INDICATION: PNA PROCEDURE: CHEST 2-VIEWS UPRIGHT (PA & LAT) Encounter: Initial COMPARISON: Chest CT dated July 17, 2018 FINDINGS: Bilateral basal predominant infiltrates are not significantly changed. No new or worsening airspace disease. No pneumothorax or significant pleural fluid. Heart size and mediastinal contours are stable. Pulmonary vascularity is unchanged. Impression: Stable appearance of the chest. .
[2018-07-20] MEDS: FUROSEMIDE 40 MG TABLET PO SCH (17:12)
[2018-07-20] MEDS: RIVAROXABAN 15 MG TABLET PO SCH (17:12)
[2018-07-20] MEDS: FLUoxetine 20 MG CAPSULE PO SCH (21:34)
[2018-07-20] MEDS: ZIPRASIDONE 40 MG CAPSULE PO SCH (21:34)
[2018-07-21] MEDS: ALBUTEROL/IPRATROPIUM 2.5mg-0.5mg/3ml NEB AEROSOL SCH ×4 (06:40→19:10)
[2018-07-21] MEDS: BUDESONIDE INH.SOLN 0.5mg/2ml NEB AEROSOL SCH ×2 (06:40→19:10)
[2018-07-21] MEDS: LEVOTHYROXINE 75 MCG TABLET PO SCH (06:57)
[2018-07-21] MEDS: ZIPRASIDONE 20 MG CAPSULE PO SCH (08:32)
[2018-07-21] MEDS: POLYETHYL GLYCOL 3350 17gm PACKET PO SCH (08:32)
[2018-07-21] MEDS: RIVAROXABAN 15 MG TABLET PO SCH ×2 (08:32→17:26)
[2018-07-21] MEDS: FUROSEMIDE 40 MG TABLET PO SCH ×2 (08:32→17:26)
--- NOTE | 2018-07-21 09:20 | Pulmonology Progress Note ---
Subjective Principal diagnosis: pneumonia Interval history: Pt sitting up in chair, states she has cough with white phlegm, no SOB noted. On 4L per NC and feels she is doing ok. Exam Vital signs: Temperature 97.1 F 07/20/18 20:00 Pulse Rate 74 07/21/18 07:38 Respiratory Rate 18 07/21/18 07:38 Blood Pressure 131/67 07/21/18 07:38 Pulse Oximetry 94 07/21/18 07:38 Inpatient Medications: Generic Name Dose Route Start Last Admin Trade Name Freq PRN Reason Stop Dose Admin Acetaminophen 650 mg 07/14/18 12:11 Tylenol PO QID PRN Discomfort Hydrocodone Bitart/Acetaminophen 1 tab 07/12/18 10:21 [place] 5/325 PO Q6H PRN Pain Al Hydroxide/Mg Hydroxide 30 ml 07/12/18 21:00 07/19/18 18:28 Maalox Plus PO 30 ml Q3H PRN Administration Indigestion Al Hydroxide/Mg Hydroxide 30 ml 07/15/18 19:06 07/20/18 18:38 Maalox Plus PO 30 ml Q3H PRN Administration Indigestion Albuterol Sulfate 2.5 mg 07/12/18 11:44 07/20/18 01:54 Proventil Neb (0.083%) AEROSOL 2.5 mg Q2HR PRN Administration Shortness of air/wheezing Albuterol/Ipratropium 3 ml 07/12/18 15:00 07/21/18 06:40 Duoneb AEROSOL 3 ml RTQID SELINA Administration Bisacodyl 10 mg 07/15/18 19:42 Dulcolax RECTALLY DAILY PRN Constipation Budesonide 0.5 mg 07/16/18 11:00 07/21/18 06:40 Pulmicort Inhalation AEROSOL 0.5 mg RTBID SELINA Administration Fluoxetine HCl 40 mg 07/13/18 21:00 07/20/18 21:34 Prozac PO 40 mg HS SELINA Administration Furosemide 40 mg 07/20/18 17:00 07/21/18 08:32 Lasix 40 Mg Tab PO 40 mg 0900,1700 SELINA Administration Guaifenesin/Dextromethorphan 10 ml 07/13/18 21:34 07/20/18 21:34 Robitussin Dm PO 10 ml Q4H PRN Administration Cough /Congestion Levothyroxine Sodium 75 mcg 08/20/18 06:30 07/21/18 06:57 Synthroid PO 75 mcg ACB SELINA Administration Magnesium Hydroxide 30 ml 07/15/18 19:42 Mom PO DAILY PRN Constipation Morphine Sulfate 1 - 2 mg 07/12/18 10:21 Morphine Sulf 2 Mg Inj IVP Q2H PRN Moderate to Sever pain Ondansetron HCl 4 mg 07/12/18 10:21 Zofran IVP Q6H PRN Nausea &/or vomiting Polyethylene Glycol 17 gm 07/16/18 09:00 07/21/18 08:32 Miralax PO Not Given DAILY SELINA Potassium Chloride 20 meq 07/19/18 17:30 07/21/18 08:32 K-Dur 20 Meq Tablet PO 20 meq BIDWM SELINA Administration Rivaroxaban 15 mg 07/20/18 17:30 07/21/18 08:32 Xarelto PO 08/10/18 23:55 15 mg BIDWM SELINA Administration Sodium Chloride 10 - 80 ml 07/12/18 07:33 07/20/18 11:02 Iv Flush IVF 30 ml PRN PRN Administration Flushing Sodium Chloride 500 ml 07/16/18 08:17 07/18/18 09:32 Normal Saline IV 500 ml PRN PRN Administration Ziprasidone 40 mg 07/12/18 21:37 07/20/18 21:34 Geodon PO 40 mg HS SELINA Administration Ziprasidone 20 mg 07/13/18 09:00 07/21/18 08:32 Geodon PO 20 mg DAILY SELINA Administration Discontinued Medications Generic Name Dose Route Start Last Admin Trade Name Freq PRN Reason Stop Dose Admin Acetaminophen 325 - 650 mg 07/12/18 10:21 Tylenol [place] Q5H PRN Pain Albuterol/Ipratropium 3 ml 07/12/18 07:28 07/12/18 07:30 Duoneb AEROSOL 07/12/18 07:29 3 ml O ONE Administration Albuterol/Ipratropium 3 ml 07/12/18 11:17 Duoneb AEROSOL RTQID PRN Azithromycin 500 mg 07/15/18 09:00 07/16/18 08:36 Zithromax PO 07/17/18 08:59 500 mg DAILY SELINA Administration Ceftriaxone Sodium 1 g 07/12/18 07:45 07/12/18 17:26 Rocephin 1 Gm IM Not Given Q24H SELINA Ceftriaxone Sodium 1 gm 07/12/18 08:00 07/12/18 07:54 Rocephin 1 Gm Ivpb IV 07/12/18 08:01 1 gm O ONE Administration Ceftriaxone Sodium 1 gm 07/13/18 08:00 Rocephin 2 Gm IV Q24H SELINA Enoxaparin Sodium 40 mg 07/12/18 10:30 07/17/18 09:05 Lovenox SQ 40 mg DAILY SELINA Administration Enoxaparin Sodium 120 mg 07/19/18 18:00 07/20/18 06:24 Lovenox SQ 120 mg Q12H SELINA Administration Fluoxetine HCl 40 mg 07/12/18 21:39 07/14/18 09:01 Prozac PO 40 mg DAILY SELINA Administration Furosemide 40 mg 07/13/18 17:00 07/15/18 08:07 Lasix 40 Mg/4 Ml IVP 40 mg 0900,1700 SELINA Administration Furosemide 40 mg 07/15/18 14:00 07/15/18 18:30 Lasix 40 Mg/4 Ml IVP 40 mg 0900,1400 SELINA Administration Furosemide 40 mg 07/19/18 09:00 07/20/18 11:00 Lasix 20 Mg/2 Ml IVP 40 mg 0900,1700 SELINA Administration Heparin Sodium (Beef Lung) 8,000 unit 07/17/18 17:46 07/17/18 18:33 Heparin Bolus IVP 07/17/18 17:47 8,000 unit O ONE Administration Heparin Sodium (Beef Lung) 3,000 unit 07/18/18 04:08 07/18/18 04:33 Heparin Bolus IVP 07/18/18 04:09 3,000 unit O ONE Administration Heparin Sodium (Beef Lung) 4,000 unit 07/18/18 14:00 07/18/18 14:45 Heparin Bolus IVP 07/18/18 14:01 4,000 unit O ONE Administration Sodium Chloride 1,000 mls @ 999.9 mls/hr 07/12/18 07:37 07/12/18 09:00 Normal Saline IV 07/12/18 08:36 Infused .Q1H ONE Infusion Azithromycin 500 mg/ Sodium 250 mls @ 250 mls/hr 07/12/18 10:15 07/14/18 12: 00 Chloride IV Infused Q24H SELINA Infusion Sodium Chloride 1,000 mls @ 30 mls/hr 07/12/18 10:30 07/18/18 22:33 Normal Saline IV Not Given .Q24H SELINA Ceftriaxone Sodium 1 g/ Sodium 100 mls @ 200 mls/hr 07/12/18 08:00 07/18/18 10:00 Chloride IV Infused Q24H SELINA Infusion Sodium Chloride 500 mls @ 500 mls/hr 07/12/18 21:35 07/12/18 22:45 Normal Saline IV 07/12/18 22:34 Infused .Q1H ONE Infusion Heparin Sodium (Porcine) 20,000 unit in 500 mls @ 0 mls/hr 07/17/18 17:30 Heparin Drip IV .Q0M SELINA Protocol Per Protocol Heparin Sodium (Porcine) 20,000 unit in 500 mls @ 50 mls/hr 07/17/18 17:48 17:54 Heparin Drip IV Infused .Q10H SELINA Titration Protocol Magnesium Hydroxide 30 ml 07/13/18 09:00 07/20/18 09:07 Mom PO Not Given DAILY SELINA Pharmacy Consult each 07/14/18 13:03 Pharmacy Consult - Fall Risk 07/14/18 13:04 ONE TIME ONE Potassium Chloride 40 meq 07/14/18 12:14 07/20/18 09:07 K-Dur 20 Meq Tablet PO Not Given BIDWM SELINA Potassium Chloride 20 meq 07/16/18 08:12 07/16/18 11:52 K-Dur 20 Meq Tablet PO 07/16/18 08:13 20 meq O ONE Administration Prednisone 40 mg 07/16/18 11:00 07/20/18 11:00 Deltasone 20 Mg PO 07/20/18 23:59 40 mg WB SELINA Administration Senna/Docusate Sodium 1 tab 07/12/18 10:21 Senna Plus Tablet PO BID PRN Constipation Senna/Docusate Sodium 2 tab 07/15/18 21:00 07/20/18 09:07 Senna Plus Tablet PO Not Given BID SELINA - Constitutional no acute distress, well nourished, obese - Routine HEENT Exam Head: Present: normocephalic, atraumatic Eye: Present: EOMI, PERRL ENT: Present: mucous membranes moist - Routine Neck Exam Present: supple, full ROM, trachea midline - Routine Respiratory Exam Present: crackles. Absent: accessory muscle use, patient mechanically ventilated Comments: crackles to bases - Routine Cardiovascular Exam Present: RRR, S1, S2, no murmur - Routine Abdominal Exam Present: soft, normoactive bowel sounds - Routine Extremities Exam Present: non tender, full ROM. Absent: cyanosis, clubbing, no edema - Routine Back/Spine/Pelvis Exam Back/Spine: Present: full ROM - Routine Skin Exam Present: intact, dry - Routine Neurological Exam Present: alert, oriented X3, CN II-XII intact - Routine Psychiatric Exam Present: normal affect, normal thought process - Urinary Catheter Management Urethral Cath placed during this visit: yes, but has since been removed by the nurse Urethral indwelling: No Insertion date: 07/12/18 Insertion time: 11:06 Removal date: 07/20/18 Removal time: 15:00 Results - Laboratory Findings Laboratory: Laboratory Results - last 48 hr 07/18/18 07/19/18 07/20/18 13:53 10:18 03:59 WBC 8.7 RBC 2.48 L Hgb 7.3 L Hct 20.8 L D MCV 83.9 MCH 29.4 MCHC 35.1 RDW Std Deviation 48.2 Plt Count 163 MPV 11.0 Immature Gran % (Auto) 0.8 H Neut % (Auto) 74.4 H Lymph % (Auto) 20.9 L [place] % (Auto) 2.9 Eos % (Auto) 0.9 Baso % (Auto) 0.1 Neut # (Auto) 6.4 Lymph # (Auto) 1.8 [place] # (Auto) 0.3 Eos # (Auto) 0.1 Baso # (Auto) 0.0 Abs Immat Gran (auto) 0.07 H APTT 87.4 H Turbidity Sodium Potassium Chloride Carbon Dioxide Anion Gap BUN Creatinine Estimated Creat Clear GFR Calculation BUN/Creatinine Ratio Glucose Calculated Osmolality Calcium Phosphorus Magnesium Icterus Index Albumin Specimen Hemolysis Stool Occult Blood Cancelled 07/20/18 07/21/18 07/21/18 03:59 03:48 03:48 WBC 7.7 RBC 2.58 L Hgb 7.7 L Hct 21.7 L MCV 84.1 MCH 29.8 MCHC 35.5 RDW Std Deviation 56.8 H Plt Count 154 MPV 10.3 Immature Gran % (Auto) 0.5 Neut % (Auto) 74.7 H Lymph % (Auto) 20.4 L [place] % (Auto) 3.9 Eos % (Auto) 0.5 Baso % (Auto) 0.0 Neut # (Auto) 5.7 Lymph # (Auto) 1.6 [place] # (Auto) 0.3 Eos # (Auto) 0.0 Baso # (Auto) 0.0 Abs Immat Gran (auto) 0.04 H APTT Turbidity < 20 < 20 Sodium 140 142 Potassium 3.8 D 4.2 Chloride 93 L 95 L Carbon Dioxide 38 H 40 H Anion Gap 9 7 BUN 11.0 12.0 Creatinine 0.6 L 0.6 L Estimated Creat Clear 145 144 GFR Calculation 105 105 BUN/Creatinine Ratio 18 20 Glucose 237 H 115 H Calculated Osmolality 276 274 Calcium 8.1 L 8.5 Phosphorus 4.1 Magnesium 2.3 Icterus Index < 2 < 2 Albumin 3.1 L Specimen Hemolysis < 15 < 15 Stool Occult Blood Assessment and Plan (1) Acute respiratory failure with hypoxia Status: Acute Assessment and plan: Currently on O2 at 4L per NC, no O2 at home. On BT's with A/A QID, pulmicort BID and prednisone 40mg x 5 days. No wheezing and overall doing better. Used O2 last noc and not the bipap. Receiving lasix BID, good UOP, cont to follow Current Visit: Yes (2) Mycoplasma pneumonia Status: Acute Assessment and plan: s/p abx, afebrile, no leukocytosis. Current Visit: Yes (3) Pulmonary embolism Status: Acute Assessment and plan: s/p heparin, now on xarelto, will need oral anticoagulation x 3 months. PA pressures 26 and no RV strain noted on 07/14 2D echo. Current Visit: Yes - Time Spent With Patient Total time spent is greater than 50% in coordination of care (as documented) at patient's floor/unit and/or counseling patient: less than 15 minutes
--- NOTE | 2018-07-21 12:53 | Progress Note ---
- Date 07/21/18 Subjective: F/U: Acute hypoxemic respiratory failure, Pneumonia, Right lower lobe PE. Doing okay today. Breathing improving gradually. Still has cough with white sputum. No pain with breathing. Eating well. Bowels stable. No ab pain. Strength and abilities improving. No f/c. Objective Vital signs: Temperature 97.1 F 07/20/18 20:00 Pulse Rate 74 07/21/18 07:38 Respiratory Rate 22 07/21/18 10:19 Blood Pressure 131/67 07/21/18 07:38 Pulse Oximetry 95 07/21/18 10:19 Rhythm: Normal Sinus Rhythm Height/Weight/BMI: Height 1.63 m Weight 122.4 kg Body Mass Index 46.0 - Constitutional Present: morbidly obese, cooperative - Routine HEENT Exam Head: Present: normocephalic, atraumatic Eye: Present: EOMI, PERRL ENT: Present: mucous membranes moist - Routine Respiratory Exam Present: decreased breath sounds. Absent: respiratory distress - Routine Cardiovascular Exam Present: RRR, no murmur - Routine Abdominal Exam Present: soft, normoactive bowel sounds, non distended, non tender - Routine Extremities Exam Present: edema. Absent: cyanosis, clubbing (+1 BLE) - Routine Musculoskeletal Exam Musculoskeletal: Present: no clubbing or cyanosis - Routine Skin Exam Present: dry, warm - Routine Neurological Exam Present: alert, CN II-XII intact, moving all extremities, vision grossly intact , hearing grossly intact, normal speech. Absent: motor deficit - Routine Psychiatric Exam Present: normal affect, normal thought process, cooperative Results - Labs CBC & Chem 7: 07/21/18 03:48 07/21/18 03:48 Microbiology Results: Microbiology 07/12/18 07:43 Peripheral/Iv Start Blood Culture - Final No Growth After 5 Days 07/12/18 07:47 Peripheral/Iv Start Blood Culture - Final No Growth After 5 Days 07/12/18 11:09 Urine Legionella Urinary Antigen - Final Assessment and Plan (1) Mycoplasma pneumonia Current visit: Yes Status: Acute (2) Acute respiratory failure with hypoxia Current visit: Yes Status: Acute Assessment and Plan: Assessment Acute hypoxemic respiratory failure. Sepsis, originating from pneumonia. Right lower lobe PE. Bilateral lower lobe pneumonia, positive mycoplasma pneumoniae PCR Acute renal insufficiency, likely secondary to dehydration, resolved Anemia (POA). Schizoaffective disorder Anxiety Hypothyroidism GERD History of adenomatous polyposis of colon, 17 polyps noted on previous colonoscopy 03/28/2017. Osteoarthritis Morbid obesity, BMI 46 Hypokalemia-07/14/18 Plan Clinically improving. Maintaining saturations well on O2 at 2-4L. Weight decreased with Lasix use. Creatinine and potassium stable. CO2 with slight increase to 40. Will give Diamox 500mg x1. Did well on O2 last night - not needed BiPAP. Will have RT perform home O2 evaluation. Tolerating Xarelto for anticoagulation. Pt understands to watch for bleeding. Will work on discharge to home today. Case discussed with CM. Time spent with patient care 30 minutes. DVT Prophylaxis: Xarelto GI Prophylaxis: Protonix Resuscitation Status: Full Code External Problems Reviewed(CCD)?: No - Time spent with patient Time with patient PN: 25 minutes - Physician Narrative Physician: Terry Dumas MD Narrative: Date: 07/21/18 Time: 1250 Hospital Course Summary Disclaimer: The visit summary below is not to be considered part of the above Progress Note. Hospital Course: 07/12/2018 Patient admitted to CCU with acute hypoxemic respiratory failure. ABG requested. Prolactin elevated at 53 although lactic acid was 1.7. We will recheck lactic acid in 6 hours. Patient received 1 L IV fluid normal saline bolus in the emergency room. Started on IV fluids normal saline at 100 mL per hour for 1 L and thereafter will decrease to 75 mL per hour. Respiratory panel shows positive mycoplasma pneumoniae PCR. Blood culture 2, sputum culture, Legionella urine antigen results awaited. Antibiotic coverage with IV Rocephin 1 g daily and IV azithromycin 500 mg daily. DuoNeb 3 mL nebulization treatment every 6 hours scheduled. Albuterol 0.083% nebulization every 2 hours as needed for wheezing or shortness of breath. Cautious IV fluid replacement in the context of concern for underlying CHF. BNP 45499. Echocardiogram ordered next available. Serum troponin 0.157, likely secondary to demand ischemia. Repeat EKG and cardiac enzymes every 6 hours 2 ordered. We will continue home medication levothyroxine, ziprasidone, fluoxetine. Patient placed on 3 g salt, mechanical soft diet with nectar thickened liquids. We will advance diet as tolerated. Tylenol 650 mg by mouth every 5 hours as needed for mild pain or fever. IV morphine 12 milligram every 2 hours as needed for severe pain. Patient reportedly had appointment for repeat colonoscopy last week with Dr. Albright but missed her appointment as she was feeling sick. Will need appointment rescheduled at the time of discharge. 07/13/2018 Patient has +4 L fluid balance along with 1.5 KG weight gain from admission. IV fluid rate decreased to 30 mL per hour. BNP 71148 on admission, 1990 today. Echocardiogram ordered next available. Patient started on IV Lasix 40 mg twice a day. Will closely monitor intake and output, daily weights. Respiratory panel shows positive mycoplasma pneumoniae PCR. Legionella urine antigen negative. Blood culture 2, sputum culture results awaited. Antibiotic coverage with IV Rocephin 1 g daily and IV azithromycin 500 mg daily. DuoNeb 3 mL nebulization treatment every 6 hours scheduled. Albuterol 0.083% nebulization every 2 hours as needed for wheezing or shortness of breath. We will provide BiPAP 15/5 cm H2O with FiO2 50% continuously at nighttime. Alternating with high flow nasal cannula 68 liters as needed to maintain oxygen saturations more than 90% during daytime. Serum troponin 0.157, repeat serum troponin improved to 0.115. Likely secondary to demand ischemia. 07/14/18 Day 3 antibiotics for mycoplasma pneumonia; patient describes clearing sputum and feeling less short of breath with treatment. Continue ceftriaxone, azithromycin and switch to oral administration to complete 5 day course. Oxygen being titrated-decreased from 10 L to 6 L while awake; continues to require BiPAP at night. Continue diuresis, proBNP approaching normal. Renal function and hepatic function have improved with adequate oxygenation and diuresis. Potassium being replaced orally. 07/15/18 Day 4 antibiotics for mycoplasma pneumonia; continue ceftriaxone, azithromycin and switch to oral administration to complete 5 day course. Chest x-ray in a.m. On 6 L oxygen earlier in the day but has been titrated back to 10 L this evening ; resume BiPAP this evening. Oxygen demand seems excessive at this point in the hospital course. Continue diuresis with oral potassium replacement. Echocardiogram with EF 65%, normal diastolic function, no significant valve disease, PAP 26 mm. Microcytic anemia however patient is not iron deficient by studies obtained today. Hemoglobin electrophoresis will be sent. 07/16/18 Day 5 antibiotics for mycoplasma pneumonia - continue ceftriaxone IV and azithromycin PO--> completed 5 days of azithromycin, discontinued. CXR this AM - pending. On 6 L oxygen currently and breathing easily. Only on NC during the night - did not use Bipap. Hgb 6.5 this morning. Will give 1 unit PRBC now and recheck hgb following transfusion. CO2 trending up (42 today). SCr and BUN stable. Continue adequate oxygenation. >3L urinary output daily via [place]. Weight slowly tending down and BNP trending down. Hold on diuretics. K+ 3.5. Continue KCl 40 mEq po BID. Will give additional KCl 20 meq po this AM. Continue to monitor. Microcytic anemia however patient is not iron deficient by studies obtained 07/15. Hemoglobin electrophoresis will be sent. With hemoglobin decreased to 6.5 will transfuse 1 unit pRBC. Continue bowel motivation. 07/17/18 Mycoplasma pneumonia - azithromycin course complete and discontinued on . Will continue ceftriaxone for antimicrobial coverage. Patient remains afebrile. CXR on 07/16/18 showed slowly improving pneumonia. Patient continues to require significant oxygen supplementation at 7L per NC. Recommend continuing to encourage patient to utilize BiPAP while sleeping given abnormal ABG. Seen by Dr. Irwin ([facility]) - recommended continuation of nebulized treatments with the addition of Pulmicort BID and a short burst of prednisone 40mg daily x 5 days. PFT testing recommended as well. Continue oxygen as needed to maintain SAO2 >90%, weaning as able. Patient does not use home oxygen. D-dimer elevated at 997. Obtain CTA chest to evaluate for PE. Hemoglobin improved to 8.0 following PRBC x 1 unit on 07/16/18. Decreased to 7.1 today. Asymptomatic. Continue to monitor closely. Still awaiting stool guaiacs. Bicarbonate slowly trending down. Diuretics remain on hold. Weight up from admission but remains stable. Will recheck labs in AM to monitor blood counts, electrolytes and renal function. 07/18/18 CTA revealed right lung PE. Heparin drip initiated for treatment. Treatment for Mycoplasma pneumonia complete - azithromycin discontinued on 07/16, ceftriaxone discontinued 07/18/18. Patient remains afebrile. Leukocytosis slowly improving. Continue to monitor. Patient continues to require oxygen supplementation at 5L per NC - improving. Recommend continuing to encourage patient to utilize BiPAP. Seen by Dr. Irwin ([facility]) - recommended continuation of nebulized treatments with the addition of Pulmicort BID and a short burst of prednisone 40mg daily x 5 days. PFT testing recommended as well. Bowels finally moving. Continue bowel motivation. Bicarbonate slowly trending down. Diuretics remain on hold. Weight up from admission but remains stable. 07/19/18 CTA revealed right lung PE. Heparin drip per protocol. Consider starting Warfarin? Treatment for Mycoplasma pneumonia complete - azithromycin discontinued on 07/16, ceftriaxone discontinued 07/18/18. Patient remains afebrile. O2 remains at 5.5 liters/Bipap as tolerated. Wt up 7 kg- will diurese today. Bowels finally moving. Requests decrease in laxatives. Bicarbonate slowly trending down. Will restart moderate dose Lasix and observe. Decreased KCL dosing as potassium trending up. Continue to follow labs closely. Order repeat CXR in AM for stability. Start bladder retraining. DC SCDs at pt. request reasonable given full anticoagulation on board. 07/20/18 CTA revealed right lung PE. Heparin drip per protocol. Coagulation has some risk b/c of her polyposis syndrome. Patient is in favor of NOAC. Because of concerns for monitoring warfarin/INR and the problems a supratherapeutic INR pose, will start Xarelto. Discussed with patient that she must pay attention for any bleeding. d/w Dr. Albright who thinks it is OK to go ahead and anticoagulate her. Hemoglobin reviewed and up to 7.3. No sign of bleeding. Repeat CXR in AM. O2 being titrated down. remains at 5.5 liters/Bipap as tolerated. Wt up 7 kg- will diurese today. Bicarbonate has trended up with resumption of Lasix. Observe. Discontinue Naylor. Encouraged mobility. 07/21/18 Clinically improving. Maintaining saturations well on O2 at 2-4L. Weight decreased with Lasix use. Creatinine and potassium stable. CO2 with slight increase to 40. Will give Diamox 500mg x1. Did well on O2 last night - not needed BiPAP. Will have RT perform home O2 evaluation. Tolerating Xarelto for anticoagulation. Pt understands to watch for bleeding.
[2018-07-21] MEDS ORDERED: acetaZOLAMIDE 250 MG TABLET PO ONE (12:56)
[2018-07-21] MEDS: MAG-AL + SIM ORAL LIQUID 30ml PO PRN (19:07)
[2018-07-21] MEDS: ZIPRASIDONE 40 MG CAPSULE PO SCH (21:56)
[2018-07-21] MEDS: FLUoxetine 20 MG CAPSULE PO SCH (21:56)
[2018-07-21] MEDS: GUAIFENESIN/DM 5ml ORAL LIQUID PO PRN (21:57)
[2018-07-22] MEDS: LEVOTHYROXINE 75 MCG TABLET PO SCH (06:10)
[2018-07-22] MEDS: BUDESONIDE INH.SOLN 0.5mg/2ml NEB AEROSOL SCH (07:29)
[2018-07-22] MEDS: ALBUTEROL/IPRATROPIUM 2.5mg-0.5mg/3ml NEB AEROSOL SCH ×2 (07:30→11:04)
[2018-07-22 08:26] VITALS: BP 110/76; PULSE 82; TEMP 96.3
[2018-07-22] MEDS: POLYETHYL GLYCOL 3350 17gm PACKET PO SCH (08:29)
[2018-07-22] MEDS: ZIPRASIDONE 20 MG CAPSULE PO SCH (08:30)
[2018-07-22] MEDS: RIVAROXABAN 15 MG TABLET PO SCH (08:30)
[2018-07-22] MEDS: FUROSEMIDE 40 MG TABLET PO SCH (08:34)
--- NOTE | 2018-07-22 10:08 | XRay Report ---
INDICATION: F/U PROCEDURE: CHEST 2-VIEWS UPRIGHT (PA & LAT) Encounter: Initial COMPARISON: July 20, 2018 FINDINGS: Mild basilar airspace disease without significant change. Upper lung dodson are grossly clear. No pneumothorax or effusion. Heart size and mediastinal contours are stable. Pulmonary vascularity is stable. Impression: No change. .
--- NOTE | 2018-07-22 10:45 | Progress Note ---
- Date 07/22/18 Subjective: F/U: Acute hypoxemic respiratory failure, Pneumonia, Right lower lobe PE. Doing well this morning. Breathing stable-some slight congestion, little cough. Not having pain with breathing. Maintaining saturations on O2. Eating well. No ab pain. Strength stable. No f/c. Feels able to go home. Objective Vital signs: Temperature 96.3 F L 07/22/18 08:00 Pulse Rate 82 07/22/18 08:00 Respiratory Rate 18 07/22/18 08:00 Blood Pressure 110/76 07/22/18 08:00 Pulse Oximetry 90 07/22/18 08:00 Rhythm: Normal Sinus Rhythm Height/Weight/BMI: Height 1.63 m Weight 122.4 kg Body Mass Index 46.0 - Constitutional Present: well nourished, well developed, average body habitus, morbidly obese, cooperative. Absent: combative, agitated - Routine HEENT Exam Head: Present: normocephalic, atraumatic Eye: Present: EOMI, PERRL ENT: Present: mucous membranes moist - Routine Respiratory Exam Present: decreased breath sounds, wheezes (Faint), crackles (Faint), distant breath sounds, diminished air movement. Absent: respiratory distress - Routine Cardiovascular Exam Present: RRR, no murmur - Routine Abdominal Exam Present: soft, normoactive bowel sounds, non distended, non tender. Absent: guarding - Routine Extremities Exam Present: pulses intact. Absent: cyanosis, clubbing - Routine Musculoskeletal Exam Musculoskeletal: Present: no clubbing or cyanosis - Routine Skin Exam Present: dry, warm - Routine Neurological Exam Present: alert, oriented X3, CN II-XII intact, moving all extremities, vision grossly intact, hearing grossly intact, normal speech. Absent: motor deficit, altered mental status - Routine Psychiatric Exam Present: normal affect, normal thought process, cooperative Results - Labs CBC & Chem 7: 07/22/18 04:03 07/22/18 04:03 Microbiology Results: Microbiology 07/12/18 07:43 Peripheral/Iv Start Blood Culture - Final No Growth After 5 Days 07/12/18 07:47 Peripheral/Iv Start Blood Culture - Final No Growth After 5 Days 07/12/18 11:09 Urine Legionella Urinary Antigen - Final Assessment and Plan (1) Mycoplasma pneumonia Current visit: Yes Status: Acute (2) Acute respiratory failure with hypoxia Current visit: Yes Status: Acute Assessment and Plan: Assessment Acute hypoxemic respiratory failure Sepsis, originating from pneumonia Bilateral lower lobe pneumonia, positive mycoplasma pneumoniae PCR Right lower lobe PE Acute renal insufficiency, likely secondary to dehydration, resolved Anemia (POA) Schizoaffective disorder Anxiety Hypothyroidism GERD History of adenomatous polyposis of colon, 17 polyps noted on previous colonoscopy 03/28/2017 Osteoarthritis Hypokalemia (Not POA) - resolved Morbid obesity with BMI 46 Plan Patient did qualify for home O2: 3L rest with 5L when active. WBC normal. Afebrile and vitals stable. Ambulating well. Eating well. Will discharge to home. Antibiotics completed during hospitalization. Continue with DuoNeb and budesonide nebulized treatments. Xarelto 15mg BID with meals for 3 weeks, changing to 20mg with supper on August 11. Will need at least 3 months of Xarelto use. Arrangements for [facility] to follow patient have been made. F/U with Dr Waters in 1 week - consider repeating CXR at that time. F/U with Dr Irwin in 2 weeks. See orders for details. Case discussed with CM and pulm. Time spent with patient care and discharge greater than 30 minutes. DVT Prophylaxis: Xarelto GI Prophylaxis: Protonix Resuscitation Status: Full Code External Problems Reviewed(CCD)?: No - Physician Narrative Narrative: Date: 07/22/18 Time: [facility] Hospital Course Summary Disclaimer: The visit summary below is not to be considered part of the above Progress Note. Hospital Course: 07/12/2018 Patient admitted to CCU with acute hypoxemic respiratory failure. ABG requested. Prolactin elevated at 53 although lactic acid was 1.7. We will recheck lactic acid in 6 hours. Patient received 1 L IV fluid normal saline bolus in the emergency room. Started on IV fluids normal saline at 100 mL per hour for 1 L and thereafter will decrease to 75 mL per hour. Respiratory panel shows positive mycoplasma pneumoniae PCR. Blood culture 2, sputum culture, Legionella urine antigen results awaited. Antibiotic coverage with IV Rocephin 1 g daily and IV azithromycin 500 mg daily. DuoNeb 3 mL nebulization treatment every 6 hours scheduled. Albuterol 0.083% nebulization every 2 hours as needed for wheezing or shortness of breath. Cautious IV fluid replacement in the context of concern for underlying CHF. BNP 28602. Echocardiogram ordered next available. Serum troponin 0.157, likely secondary to demand ischemia. Repeat EKG and cardiac enzymes every 6 hours 2 ordered. We will continue home medication levothyroxine, ziprasidone, fluoxetine. Patient placed on 3 g salt, mechanical soft diet with nectar thickened liquids. We will advance diet as tolerated. Tylenol 650 mg by mouth every 5 hours as needed for mild pain or fever. IV morphine 12 milligram every 2 hours as needed for severe pain. Patient reportedly had appointment for repeat colonoscopy last week with Dr. Albright but missed her appointment as she was feeling sick. Will need appointment rescheduled at the time of discharge. 07/13/2018 Patient has +4 L fluid balance along with 1.5 KG weight gain from admission. IV fluid rate decreased to 30 mL per hour. BNP 10424 on admission, 1989 today. Echocardiogram ordered next available. Patient started on IV Lasix 40 mg twice a day. Will closely monitor intake and output, daily weights. Respiratory panel shows positive mycoplasma pneumoniae PCR. Legionella urine antigen negative. Blood culture 2, sputum culture results awaited. Antibiotic coverage with IV Rocephin 1 g daily and IV azithromycin 500 mg daily. DuoNeb 3 mL nebulization treatment every 6 hours scheduled. Albuterol 0.083% nebulization every 2 hours as needed for wheezing or shortness of breath. We will provide BiPAP 15/5 cm H2O with FiO2 50% continuously at nighttime. Alternating with high flow nasal cannula 68 liters as needed to maintain oxygen saturations more than 90% during daytime. Serum troponin 0.157, repeat serum troponin improved to 0.115. Likely secondary to demand ischemia. 07/14/18 Day 3 antibiotics for mycoplasma pneumonia; patient describes clearing sputum and feeling less short of breath with treatment. Continue ceftriaxone, azithromycin and switch to oral administration to complete 5 day course. Oxygen being titrated-decreased from 10 L to 6 L while awake; continues to require BiPAP at night. Continue diuresis, proBNP approaching normal. Renal function and hepatic function have improved with adequate oxygenation and diuresis. Potassium being replaced orally. 07/15/18 Day 4 antibiotics for mycoplasma pneumonia; continue ceftriaxone, azithromycin and switch to oral administration to complete 5 day course. Chest x-ray in a.m. On 6 L oxygen earlier in the day but has been titrated back to 10 L this evening ; resume BiPAP this evening. Oxygen demand seems excessive at this point in the hospital course. Continue diuresis with oral potassium replacement. Echocardiogram with EF 65%, normal diastolic function, no significant valve disease, PAP 26 mm. Microcytic anemia however patient is not iron deficient by studies obtained today. Hemoglobin electrophoresis will be sent. 07/16/18 Day 5 antibiotics for mycoplasma pneumonia - continue ceftriaxone IV and azithromycin PO--> completed 5 days of azithromycin, discontinued. CXR this AM - pending. On 6 L oxygen currently and breathing easily. Only on NC during the night - did not use Bipap. Hgb 6.5 this morning. Will give 1 unit PRBC now and recheck hgb following transfusion. CO2 trending up (42 today). SCr and BUN stable. Continue adequate oxygenation. >3L urinary output daily via [place]. Weight slowly tending down and BNP trending down. Hold on diuretics. K+ 3.5. Continue KCl 40 mEq po BID. Will give additional KCl 20 meq po this AM. Continue to monitor. Microcytic anemia however patient is not iron deficient by studies obtained 07/15. Hemoglobin electrophoresis will be sent. With hemoglobin decreased to 6.5 will transfuse 1 unit pRBC. Continue bowel motivation. 07/17/18 Mycoplasma pneumonia - azithromycin course complete and discontinued on . Will continue ceftriaxone for antimicrobial coverage. Patient remains afebrile. CXR on 07/16/18 showed slowly improving pneumonia. Patient continues to require significant oxygen supplementation at 7L per NC. Recommend continuing to encourage patient to utilize BiPAP while sleeping given abnormal ABG. Seen by Dr. Irwin (pul) - recommended continuation of nebulized treatments with the addition of Pulmicort BID and a short burst of prednisone 40mg daily x 5 days. PFT testing recommended as well. Continue oxygen as needed to maintain SAO2 >90%, weaning as able. Patient does not use home oxygen. D-dimer elevated at 997. Obtain CTA chest to evaluate for PE. Hemoglobin improved to 8.0 following PRBC x 1 unit on 07/16/18. Decreased to 7.1 today. Asymptomatic. Continue to monitor closely. Still awaiting stool guaiacs. Bicarbonate slowly trending down. Diuretics remain on hold. Weight up from admission but remains stable. Will recheck labs in AM to monitor blood counts, electrolytes and renal function. 07/18/18 CTA revealed right lung PE. Heparin drip initiated for treatment. Treatment for Mycoplasma pneumonia complete - azithromycin discontinued on 07/16, ceftriaxone discontinued 07/18/18. Patient remains afebrile. Leukocytosis slowly improving. Continue to monitor. Patient continues to require oxygen supplementation at 5L per NC - improving. Recommend continuing to encourage patient to utilize BiPAP. Bowels finally moving. Continue bowel motivation. Bicarbonate slowly trending down. Diuretics remain on hold. Weight up from admission but remains stable. 07/19/18 CTA revealed right lung PE. Heparin drip per protocol. Consider starting Warfarin? Treatment for Mycoplasma pneumonia complete - azithromycin discontinued on 07/16, ceftriaxone discontinued 07/18/18. Patient remains afebrile. O2 remains at 5.5 liters/Bipap as tolerated. Wt up 7 kg- will diurese today. Bowels finally moving. Requests decrease in laxatives. Bicarbonate slowly trending down. Will restart moderate dose Lasix and observe. Decreased KCL dosing as potassium trending up. Continue to follow labs closely. Order repeat CXR in AM for stability. Start bladder retraining. DC SCDs at pt. request reasonable given full anticoagulation on board. 07/20/18 CTA revealed right lung PE. Heparin drip per protocol. Coagulation has some risk b/c of her polyposis syndrome. Patient is in favor of NOAC. Because of concerns for monitoring warfarin/INR and the problems a supratherapeutic INR pose, will start Xarelto. Discussed with patient that she must pay attention for any bleeding. d/w Dr. Albright who thinks it is OK to go ahead and anticoagulate her. Hemoglobin reviewed and up to 7.3. No sign of bleeding. Repeat CXR in AM. O2 being titrated down. remains at 5.5 liters/Bipap as tolerated. Wt up 7 kg- will diurese today. Bicarbonate has trended up with resumption of Lasix. Observe. Discontinue Naylor. Encouraged mobility. 07/21/18 Clinically improving. Maintaining saturations well on O2 at 2-4L. Weight decreased with Lasix use. Creatinine and potassium stable. CO2 with slight increase to 40. Will give Diamox 500mg x1. Did well on O2 last night - not needed BiPAP. Will have RT perform home O2 evaluation. Tolerating Xarelto for anticoagulation. Pt understands to watch for bleeding. 07/22/18 Patient did qualify for home O2: 3L rest with 5L when active. WBC normal. Afebrile and vitals stable. Ambulating well. Eating well. Will discharge to home. Antibiotics completed during hospitalization. Continue with DuoNeb and budesonide nebulized treatments. Xarelto 15mg BID with meals for 3 weeks, changing to 20mg with supper on August 11. Will need at least 3 months of Xarelto use. Arrangements for [facility] to follow patient have been made. F/U with Dr Waters in 1 week - consider repeating CXR at that time. F/U with Dr Irwin in 2 weeks. See orders for details.
[2018-07-22 11:09] VITALS: RESP 22; O2SAT 96
--- NOTE | 2018-07-22 11:14 | Discharge Summary ---
Discharge Information Date of admission: 07/12/18 09:01 Anticipated date of discharge: 07/22/18 Attending Physician: Terry Dumas MD Primary care physician: Quyen Waters DO Consults: Physician Consult: Sven Irwin Reason For Exam: hypoxic resp failure - Discharge Diagnosis (1) Mycoplasma pneumonia Status: Acute (2) Acute respiratory failure with hypoxia Status: Acute Discharge diagnosis Acute hypoxemic respiratory failure Associated conditions and complications Sepsis, originating from pneumonia Bilateral lower lobe pneumonia, positive mycoplasma pneumoniae PCR Right lower lobe PE Acute renal insufficiency, likely secondary to dehydration, resolved No underlying chronic kidney disease Anemia (POA) Schizoaffective disorder Anxiety Hypothyroidism GERD History of adenomatous polyposis of colon, 17 polyps noted on previous colonoscopy 03/28/2017 Osteoarthritis Hypokalemia (Not POA) - resolved Morbid obesity with BMI 46 - Procedures Procedures: Date of Exam: 07/14/18 Type of Exam: US ECHO Doppler complete TECHNICAL QUALITY Technically fair 2D, M-mode, Doppler echocardiographic images were submitted for interpretation. Images were somewhat difficult due to patient being scanned in upright position because of marked dyspnea. FINDINGS 1. CARDIAC CHAMBERS: All cardiac chamber measurements are normal. Aortic root diameter is normal. RV size and contractility appear normal. 2. LEFT VENTRICLE: Wall thickness measures 10 mm in the posterior wall, 11 mm in the septal wall. Left ventricular systolic function appears normal. Ejection fraction is normal measured at about 65%. No significant regional wall motion abnormalities were appreciated. 3. VALVES: Aortic valve exhibits mild sclerotic changes. Valve opening is normal. Mitral valve exhibits annular calcification posteriorly. Valve excursion is normal. Tricuspid valve structure and motion appear normal. Normal valve excursion. Visualization is somewhat difficult nevertheless. 4. DOPPLER: Normal diastolic function parameters. Trace regurgitation involving tricuspid, mitral and pulmonic valves, none of hemodynamic significance. 5. Systolic pulmonary artery pressure estimated at 26 mmHg. 6. Flow velocities throughout were normal. The aortic valve was borderline increased at 1.95 m/sec with a mean gradient of 8 mmHg. Nevertheless, the calculated aortic valve area 2.2 cm2 falls well within normal range. Peak flow velocity at the LVOT level is 1 m/sec. 7. No evidence of pericardial effusion, intracardiac masses, thrombi, vegetations or shunts. 8. IVC is not well seen. IMPRESSION 1. Technically difficult study due to patient's marked dyspnea and patient being scanned in upright position. 2. Normal biventricular size and systolic function. 3. Normal diastolic function parameters. 4. Sclerotic changes of the aortic and mitral valves without significant valvular dysfunction. Transfusion Transfusion of 1 unit pRBC given on 07/16/18. Indication: Hemoglobin 6.5 - Laboratory Labs: Admit Lab 07/12/18 07:47 WBC 39.2 H* Hgb 8.6 L Hct 25.5 L MCV 71.4 L Plt Count 509 H Neutrophils % (Manual) 73.0 H Band Neutrophils % 18.0 H Lymphocytes % (Manual) 7.0 L Metamyelocytes % 1.0 H Myelocytes % 1.0 H Admit Lab 07/12/18 07/12/18 07:44 07:47 Sodium 138 Potassium 3.7 Chloride 94 L Carbon Dioxide 32 H Anion Gap 12 BUN 56.0 H* Creatinine 1.1 Estimated Creat Clear 77 GFR Calculation 52 BUN/Creatinine Ratio 51 H Glucose 233 H Calculated Osmolality 289 H Calcium 8.3 L Total Bilirubin 2.10 H AST 89 H ALT 81 H Alkaline Phosphatase 153 H Troponin I 0.157 H NT-Pro-B Natriuret Pep 84177 H Total Protein 7.3 Albumin 3.6 Globulin 3.7 H Albumin/Globulin Ratio 1.0 L Plasma Lactate 1.7 TSH 07/12/18 07:37 TSH 1.64 Iron Tests 07/15/18 09:44 Iron 113 TIBC 311 % Saturation 36 Laboratory Tests 07/18/18 13:53 Stool Occult Blood Negative Laboratory Tests 07/12/18 07:42 M. pneumoniae (PCR) Detected A* 07/22/18 04:03 07/22/18 04:03 - Microbiology Microbiology 07/12/18 07:43 Peripheral/Iv Start Blood Culture - Final No Growth After 5 Days 07/12/18 07:47 Peripheral/Iv Start Blood Culture - Final No Growth After 5 Days 07/12/18 11:09 Urine Legionella Urinary Antigen - Final - Radiology Radiology: Date of Exam: 07/12/18 Type of Exam: XR chest 1V Findings: Airspace consolidation in the right middle and right lower lobes. Left lung base is not well seen due to overlapping soft tissues and an enlarged cardiac silhouette. No pneumothorax. No obvious pleural effusion. Cardiac silhouette is mildly enlarged. Mediastinal contours are normal. Pulmonary vascularity is normal. Impression: Right-sided pneumonia or aspiration. ----- Date of Exam: 07/13/18 Type of Exam: XR chest 1V Findings: Slightly improved aeration of the right lung with diffuse fine nodular opacities in both lung bases. Trace effusions. No pneumothorax. Heart size and mediastinal contours are stable. Impression: Bilateral infiltrates, slightly improved on the right. ------ Date of Exam: 07/16/18 Type of Exam: XR chest 2V FINDINGS: Airspace disease is slightly improved on the right lung with a mild amount remaining in the right base. Upper lung dodson are clear. No pneumothorax or effusion. Heart size and mediastinal contours are stable. Pulmonary vascularity appears normal. Impression: Slowly improving pneumonia. ------- Date of Exam: 07/17/18 Type of Exam: CT angio pulm emboli Findings: Pulmonary arteries: Exam is diagnostic to the subsegmental pulmonary arterial level. There are multifocal filling defects seen in the right lower lobe segmental and subsegmental pulmonary arteries. Other findings: Groundglass opacity seen scattered throughout the right upper and middle lobes with lesser involvement in both lower lobes and the lingula. No pleural effusion or pneumothorax. The central airways are patent. Heart size is normal. No pericardial effusion. No axillary adenopathy. Borderline prominent AP window nodes. The upper abdomen shows no acute findings. Bone windows show no acute findings. Impression: 1. Right lower lobe segmental and subsegmental pulmonary emboli. No CT evidence of right heart strain currently. 2. Multifocal groundglass airspace opacities. Differential considerations include infection, inflammation and pulmonary hemorrhage. Date of Exam: 07/20/18 Type of Exam: XR chest 2V FINDINGS: Bilateral basal predominant infiltrates are not significantly changed. No new or worsening airspace disease. No pneumothorax or significant pleural fluid. Heart size and mediastinal contours are stable. Pulmonary vascularity is unchanged. Impression: Stable appearance of the chest. Date of Exam: 07/22/18 Type of Exam: XR chest 2V FINDINGS: Mild basilar airspace disease without significant change. Upper lung dodson are grossly clear. No pneumothorax or effusion. Heart size and mediastinal contours are stable. Pulmonary vascularity is stable. Impression: No change. History of Present Illness HPI: A very pleasant 52-year-old female patient of Dr. Waters presented to the emergency room with approximately 10 day history of upper respiratory symptoms including cough with greenish mucoid expectoration which gradually worsened leading to shortness of breath over the past 2 days. In the emergency room, patient noted to her WBC count 39,200 with left shift. Lactic acid 1.7 although prolactin elevated at 53. Patient also requiring high flow nasal cannula oxygen at 10 L and later on required BiPAP noninvasive ventilation to maintain oxygen saturations. With these findings, hospitalist service was contacted and patient admitted to ICU. Patient evaluated at bedside in the ICU following admission. Patient has been followed up at [facility] for the past 27 years. Reports that for the past 10 days she has been having cough with greenish mucoid expectoration, was treated with course of outpatient antibiotic, although patient could not recollect name of antibiotic. Symptoms did not improve and thereafter for the past 2 days, patient noticed increasing shortness of breath. No reported subjective fever, no chills, no chest pain, no palpitations, no dizziness, no blurred vision. Patient was on BiPAP noninvasive ventilation with FiO2 50 % at the time of initial ICU admission and during interview, patient placed on high flow nasal cannula 8 L with oxygen saturation 8990 percent. Patient has received 1 L IV fluid normal saline bolus in the emergency [place] [address] and troponin I also slightly elevated at 0.157. Likely secondary to demand ischemia however we will perform serial EKG and cardiac enzymes every 6 hours 3. For complete details of the H&P refer to that document. Objective Vital signs: Temperature 96.3 F L 07/22/18 08:00 Pulse Rate 82 07/22/18 08:00 Respiratory Rate 22 07/22/18 11:05 Blood Pressure 110/76 07/22/18 08:00 Pulse Oximetry 96 07/22/18 11:05 Rhythm: Normal Sinus Rhythm Height/Weight/BMI: Height 1.63 m Weight 122.4 kg Body Mass Index 46.0 Hospital Course This is a general summary of the patient's hospital course. For more details refer to the complete medical record. Hospital course: 07/12/2018 Patient admitted to CCU with acute hypoxemic respiratory failure. ABG requested. Prolactin elevated at 53 although lactic acid was 1.7. We will recheck lactic acid in 6 hours. Patient received 1 L IV fluid normal saline bolus in the emergency room. Started on IV fluids normal saline at 100 mL per hour for 1 L and thereafter will decrease to 75 mL per hour. Respiratory panel shows positive mycoplasma pneumoniae PCR. Blood culture 2, sputum culture, Legionella urine antigen results awaited. Antibiotic coverage with IV Rocephin 1 g daily and IV azithromycin 500 mg daily. DuoNeb 3 mL nebulization treatment every 6 hours scheduled. Albuterol 0.083% nebulization every 2 hours as needed for wheezing or shortness of breath. Cautious IV fluid replacement in the context of concern for underlying CHF. BNP 92624. Echocardiogram ordered next available. Serum troponin 0.157, likely secondary to demand ischemia. Repeat EKG and cardiac enzymes every 6 hours 2 ordered. We will continue home medication levothyroxine, ziprasidone, fluoxetine. Patient placed on 3 g salt, mechanical soft diet with nectar thickened liquids. We will advance diet as tolerated. Tylenol 650 mg by mouth every 5 hours as needed for mild pain or fever. IV morphine 12 milligram every 2 hours as needed for severe pain. Patient reportedly had appointment for repeat colonoscopy last week with Dr. Albright but missed her appointment as she was feeling sick. Will need appointment rescheduled at the time of discharge. 07/13/2018 Patient has +4 L fluid balance along with 1.5 KG weight gain from admission. IV fluid rate decreased to 30 mL per hour. BNP 42747 on admission, 1989 today. Echocardiogram ordered next available. Patient started on IV Lasix 40 mg twice a day. Will closely monitor intake and output, daily weights. Respiratory panel shows positive mycoplasma pneumoniae PCR. Legionella urine antigen negative. Blood culture 2, sputum culture results awaited. Antibiotic coverage with IV Rocephin 1 g daily and IV azithromycin 500 mg daily. DuoNeb 3 mL nebulization treatment every 6 hours scheduled. Albuterol 0.083% nebulization every 2 hours as needed for wheezing or shortness of breath. We will provide BiPAP 15/5 cm H2O with FiO2 50% continuously at nighttime. Alternating with high flow nasal cannula 68 liters as needed to maintain oxygen saturations more than 90% during daytime. Serum troponin 0.157, repeat serum troponin improved to 0.115. Likely secondary to demand ischemia. 07/14/18 Day 3 antibiotics for mycoplasma pneumonia; patient describes clearing sputum and feeling less short of breath with treatment. Continue ceftriaxone, azithromycin and switch to oral administration to complete 5 day course. Oxygen being titrated-decreased from 10 L to 6 L while awake; continues to require BiPAP at night. Continue diuresis, proBNP approaching normal. Renal function and hepatic function have improved with adequate oxygenation and diuresis. Potassium being replaced orally. 07/15/18 Day 4 antibiotics for mycoplasma pneumonia; continue ceftriaxone, azithromycin and switch to oral administration to complete 5 day course. Chest x-ray in a.m. On 6 L oxygen earlier in the day but has been titrated back to 10 L this evening ; resume BiPAP this evening. Oxygen demand seems excessive at this point in the hospital course. Continue diuresis with oral potassium replacement. Echocardiogram with EF 65%, normal diastolic function, no significant valve disease, PAP 26 mm. Microcytic anemia however patient is not iron deficient by studies obtained today. Hemoglobin electrophoresis will be sent. 07/16/18 Day 5 antibiotics for mycoplasma pneumonia - continue ceftriaxone IV and azithromycin PO--> completed 5 days of azithromycin, discontinued. CXR this AM - pending. On 6 L oxygen currently and breathing easily. Only on NC during the night - did not use Bipap. Hgb 6.5 this morning. Will give 1 unit PRBC now and recheck hgb following transfusion. CO2 trending up (42 today). SCr and BUN stable. Continue adequate oxygenation. >3L urinary output daily via Naylor. Weight slowly tending down and BNP trending down. Hold on diuretics. K+ 3.5. Continue KCl 40 mEq po BID. Will give additional KCl 20 meq po this AM. Continue to monitor. Microcytic anemia however patient is not iron deficient by studies obtained 07/15. Hemoglobin electrophoresis will be sent. With hemoglobin decreased to 6.5 will transfuse 1 unit pRBC. Continue bowel motivation. 07/17/18 Mycoplasma pneumonia - azithromycin course complete and discontinued on . Will continue ceftriaxone for antimicrobial coverage. Patient remains afebrile. CXR on 07/16/18 showed slowly improving pneumonia. Patient continues to require significant oxygen supplementation at 7L per NC. Recommend continuing to encourage patient to utilize BiPAP while sleeping given abnormal ABG. Seen by Dr. Irwin (pul) - recommended continuation of nebulized treatments with the addition of Pulmicort BID and a short burst of prednisone 40mg daily x 5 days. PFT testing recommended as well. Continue oxygen as needed to maintain SAO2 >90%, weaning as able. Patient does not use home oxygen. D-dimer elevated at 997. Obtain CTA chest to evaluate for PE. Hemoglobin improved to 8.0 following PRBC x 1 unit on 07/16/18. Decreased to 7.1 today. Asymptomatic. Continue to monitor closely. Still awaiting stool guaiacs. Bicarbonate slowly trending down. Diuretics remain on hold. Weight up from admission but remains stable. Will recheck labs in AM to monitor blood counts, electrolytes and renal function. 07/18/18 CTA revealed right lung PE. Heparin drip initiated for treatment. Treatment for Mycoplasma pneumonia complete - azithromycin discontinued on 07/16, ceftriaxone discontinued 07/18/18. Patient remains afebrile. Leukocytosis slowly improving. Continue to monitor. Patient continues to require oxygen supplementation at 5L per NC - improving. Recommend continuing to encourage patient to utilize BiPAP. Bowels finally moving. Continue bowel motivation. Bicarbonate slowly trending down. Diuretics remain on hold. Weight up from admission but remains stable. 07/19/18 CTA revealed right lung PE. Heparin drip per protocol. Consider starting Warfarin? Treatment for Mycoplasma pneumonia complete - azithromycin discontinued on 07/16, ceftriaxone discontinued 07/18/18. Patient remains afebrile. O2 remains at 5.5 liters/Bipap as tolerated. Wt up 7 kg- will diurese today. Bowels finally moving. Requests decrease in laxatives. Bicarbonate slowly trending down. Will restart moderate dose Lasix and observe. Decreased KCL dosing as potassium trending up. Continue to follow labs closely. Order repeat CXR in AM for stability. Start bladder retraining. DC SCDs at pt. request reasonable given full anticoagulation on board. 07/20/18 CTA revealed right lung PE. Heparin drip per protocol. Coagulation has some risk b/c of her polyposis syndrome. Patient is in favor of NOAC. Because of concerns for monitoring warfarin/INR and the problems a supratherapeutic INR pose, will start Xarelto. Discussed with patient that she must pay attention for any bleeding. d/w Dr. Albright who thinks it is OK to go ahead and anticoagulate her. Hemoglobin reviewed and up to 7.3. No sign of bleeding. Repeat CXR in AM. O2 being titrated down. remains at 5.5 liters/Bipap as tolerated. Wt up 7 kg- will diurese today. Bicarbonate has trended up with resumption of Lasix. Observe. Discontinue Naylor. Encouraged mobility. 07/21/18 Clinically improving. Maintaining saturations well on O2 at 2-4L. Weight decreased with Lasix use. Creatinine and potassium stable. CO2 with slight increase to 40. Will give Diamox 500mg x1. Did well on O2 last night - not needed BiPAP. Will have RT perform home O2 evaluation. Tolerating Xarelto for anticoagulation. Pt understands to watch for bleeding. 07/22/18 Patient did qualify for home O2: 3L rest with 5L when active. WBC normal. Afebrile and vitals stable. Ambulating well. Eating well. Will discharge to home. Antibiotics completed during hospitalization. Continue with DuoNeb and budesonide nebulized treatments. Xarelto 15mg BID with meals for 3 weeks, changing to 20mg with supper on August 11. Will need at least 3 months of Xarelto use. Arrangements for [facility] to follow patient have been made. F/U with Dr Waters in 1 week - consider repeating CXR at that time. F/U with Dr Irwin in 2 weeks. See orders for details. Time spent with patient: discharge greater than 30 minutes External Problems Reviewed(CCD)?: No Resuscitation Status: Full Code Discharge Plan - Discharge Disposition Discharge Date: 07/22/18 Disposition: 86 Home Health Service *Condition: Stable Reason For Visit (Visit label in EMR): Pneumonia, respiratory failure - Discharge Medications *Discharge Medications: New Albuterol/Ipratropium [Duoneb] 3 ml AEROSOL RTQID #1 box Budesonide Inhalation [Pulmicort Inhalation] 0.5 mg AEROSOL RTBID #1 box Guaifenesin/Dm Oral Liq [Robitussin Dm] 10 ml PO Q4H PRN udc PRN Reason: Cough /Congestion PEG 3350 17gm PACKET [Miralax] 17 gm PO DAILY PRN packet PRN Reason: Constipation Rivaroxaban [Xarelto] 15 mg PO BIDWM #39 tab Rivaroxaban [Xarelto] 20 mg PO WS #30 tab Continue Levothyroxine Sodium 1 tab PO DAILY #30 Paliperidone Palmitate [Invega Trinza] 1 syringe Q90D Fluoxetine HCl [Prozac] 40 cap PO HS Ziprasidone HCl [Geodon] 20 mg PO DAILY Ziprasidone HCl [Geodon] 40 mg PO HS - Discharge Packet/Instructions *Diet: Low sodium *Activity: As tolerated *Pain Management/Treatment: Continue prior home pain medications. Tylenol ( acetaminophen) okay to use. *Wound Care: n/a Additional Instructions: Use Xarelto (rivaroxaban) 15mg twice a day with food ( breakfast and evening meal) until August 10, 2018. On August 11, 2018 you will change to 20mg of Xarelto once a day with evening meal. Watch for bleeding/brusing while using Xarelto. Use DuoNeb breating treatments 4 times a day. Use Budesonide breathing treatments twice a day - rinse your mouth out well after using budesonide. Continue to use Acapella 4 times a day to help loosen secreations. You may use over the counter Robitussin DM as needed for cough/congestion. Use oxygen at home. You need 3L at rest/sleeping and 5L when active/moving. *Expected Signs/Symptoms: Improvement of breathing-less shortness of air and cough/congestion. *Notify Physician if: Temp >100.4. Increasing shortness of breath. Worsening cough/congestion. Increasing pain with breathing. Seeing blood in your bowel movements or passing dark/tarry stools. Any other worriesome symptom. *During Business Hours Contact: Dr Waters *After Business Hours Contact: Call [facility] ([phone]) and have your care provider contacted. *Pending Lab/Results: No Pending Lab - Referrals/Follow Up *Referrals/Follow Up: Quyen Waters DO [Primary Care Provider] - 1 Week (Hospital follow up with pneumonia/PE - did qualify for home O2 at 3L rest and 5L with activities. Consider repeating CXR. ) Sven Irwin MD [Physician] - 2 Weeks (Hospital follow up - Pneumonia and PE. Qualified for home O2. ) - Patient Handouts Patient Handouts: Anemia (GEN), Pneumonia (GEN) - Dismissal Complete Discharge Instructions are:: Complete Physician Narrative - Narrative Physician: Terry Dumas MD Attestation Narrative: Date: 07/22/18 Time: 1111 I have independently interviewed and examined patient prior to discharge. See my progress note for details. medically stable for discharge to home.
--- NOTE | 2018-07-22 12:08 | Pulmonology Progress Note ---
Subjective Principal diagnosis: pneumonia Interval history: Pt sitting up in chair, states she has cough with white phlegm still, no SOB noted. On 3L per [place] and feels she is doing ok, waiting to go home. Exam Vital signs: Temperature 96.3 F L 07/22/18 08:00 Pulse Rate 82 07/22/18 08:00 Respiratory Rate 22 07/22/18 11:05 Blood Pressure 110/76 07/22/18 08:00 Pulse Oximetry 96 07/22/18 11:05 Inpatient Medications: Generic Name Dose Route Start Last Admin Trade Name Freq PRN Reason Stop Dose Admin Acetaminophen 650 mg 07/14/18 12:11 Tylenol PO QID PRN Discomfort Hydrocodone Bitart/Acetaminophen 1 tab 07/12/18 10:21 [place] 5/325 PO Q6H PRN Pain Al Hydroxide/Mg Hydroxide 30 ml 07/12/18 21:00 07/21/18 19:07 Maalox Plus PO 30 ml Q3H PRN Administration Indigestion Al Hydroxide/Mg Hydroxide 30 ml 07/15/18 19:06 07/20/18 18:38 Maalox Plus PO 30 ml Q3H PRN Administration Indigestion Albuterol Sulfate 2.5 mg 07/12/18 11:44 07/20/18 01:54 Proventil Neb (0.083%) AEROSOL 2.5 mg Q2HR PRN Administration Shortness of air/wheezing Albuterol/Ipratropium 3 ml 07/12/18 15:00 07/22/18 11:04 Duoneb AEROSOL 3 ml RTQID SELINA Administration Bisacodyl 10 mg 07/15/18 19:42 Dulcolax RECTALLY DAILY PRN Constipation Budesonide 0.5 mg 07/16/18 11:00 07/22/18 07:29 Pulmicort Inhalation AEROSOL 0.5 mg RTBID SELINA Administration Fluoxetine HCl 40 mg 07/13/18 21:00 07/21/18 21:56 Prozac PO 40 mg HS SELINA Administration Furosemide 40 mg 07/20/18 17:00 07/22/18 08:34 Lasix 40 Mg Tab PO 40 mg 0900,1700 SELINA Administration Guaifenesin/Dextromethorphan 10 ml 07/13/18 21:34 07/21/18 21:57 Robitussin Dm PO 10 ml Q4H PRN Administration Cough /Congestion Levothyroxine Sodium 75 mcg 07/14/18 06:30 07/22/18 06:10 Synthroid PO 75 mcg ACB SELINA Administration Magnesium Hydroxide 30 ml 07/15/18 19:42 Mom PO DAILY PRN Constipation Morphine Sulfate 1 - 2 mg 07/12/18 10:21 Morphine Sulf 2 Mg Inj IVP Q2H PRN Moderate to Sever pain Ondansetron HCl 4 mg 07/12/18 10:21 Zofran IVP Q6H PRN Nausea &/or vomiting Polyethylene Glycol 17 gm 07/16/18 09:00 07/22/18 08:29 Miralax PO Not Given DAILY SELINA Potassium Chloride 20 meq 07/19/18 17:30 07/22/18 08:34 K-Dur 20 Meq Tablet PO 20 meq BIDWM SELINA Administration Rivaroxaban 15 mg 07/20/18 17:30 07/22/18 08:30 Xarelto PO 08/10/18 23:55 15 mg BIDWM SELINA Administration Sodium Chloride 10 - 80 ml 07/12/18 07:33 07/20/18 11:02 Iv Flush IVF 30 ml PRN PRN Administration [place] Sodium Chloride 500 ml 07/16/18 08:17 07/18/18 09:32 Normal Saline IV 500 ml PRN PRN Administration Ziprasidone 40 mg 07/12/18 21:37 07/21/18 21:56 Geodon PO 40 mg HS SELINA Administration Ziprasidone 20 mg 07/13/18 09:00 07/22/18 08:30 Geodon PO 20 mg DAILY SELINA Administration Discontinued Medications Generic Name Dose Route Start Last Admin Trade Name Freq PRN Reason Stop Dose Admin Acetaminophen 325 - 650 mg 07/12/18 10:21 Tylenol NV Q5H PRN Pain Acetazolamide 500 mg 07/21/18 12:56 07/21/18 13:53 Diamox 250 Mg PO 07/21/18 12:57 500 mg O ONE Administration Albuterol/Ipratropium 3 ml 07/12/18 07:28 07/12/18 07:30 Duoneb AEROSOL 07/12/18 07:29 3 ml O ONE Administration Albuterol/Ipratropium 3 ml 07/12/18 11:17 Duoneb AEROSOL RTQID PRN Azithromycin 500 mg 07/15/18 09:00 07/16/18 08:36 Zithromax PO 07/17/18 08:59 500 mg DAILY SELINA Administration Ceftriaxone Sodium 1 g 07/12/18 07:45 07/12/18 17:26 Rocephin 1 Gm IM Not Given Q24H SELINA Ceftriaxone Sodium 1 gm 07/12/18 08:00 07/12/18 07:54 Rocephin 1 Gm Ivpb IV 07/12/18 08:01 1 gm O ONE Administration Ceftriaxone Sodium 1 gm 07/13/18 08:00 Rocephin 2 Gm IV Q24H SELINA Enoxaparin Sodium 40 mg 07/12/18 10:30 07/17/18 09:05 Lovenox SQ 40 mg DAILY SELINA Administration Enoxaparin Sodium 120 mg 07/19/18 18:00 07/20/18 06:24 Lovenox SQ 120 mg Q12H SELINA Administration Fluoxetine HCl 40 mg 07/12/18 21:39 07/14/18 09:01 Prozac PO 40 mg DAILY SELINA Administration Furosemide 40 mg 07/13/18 17:00 07/15/18 08:07 Lasix 40 Mg/4 Ml IVP 40 mg 0900,1700 SELINA Administration Furosemide 40 mg 07/15/18 14:00 07/15/18 18:30 Lasix 40 Mg/4 Ml IVP 40 mg 0900,1400 SELINA Administration Furosemide 40 mg 07/19/18 09:00 07/20/18 11:00 Lasix 20 Mg/2 Ml IVP 40 mg 0900,1700 SELINA Administration Heparin Sodium (Beef Lung) 8,000 unit 07/17/18 17:46 07/17/18 18:33 Heparin Bolus IVP 07/17/18 17:47 8,000 unit O ONE Administration Heparin Sodium (Beef Lung) 3,000 unit 07/18/18 04:08 07/18/18 04:33 Heparin Bolus IVP 07/18/18 04:09 3,000 unit O ONE Administration Heparin Sodium (Beef Lung) 4,000 unit 07/18/18 14:00 07/18/18 14:45 Heparin Bolus IVP 07/18/18 14:01 4,000 unit O ONE Administration Sodium Chloride 1,000 mls @ 999.9 mls/hr 07/12/18 07:37 07/12/18 09:00 Normal Saline IV 07/12/18 08:36 Infused .Q1H ONE Infusion Azithromycin 500 mg/ Sodium 250 mls @ 250 mls/hr 07/12/18 10:15 07/14/18 12: 00 Chloride IV Infused Q24H SELINA Infusion Sodium Chloride 1,000 mls @ 30 mls/hr 07/12/18 10:30 07/18/18 22:33 Normal Saline IV Not Given .Q24H SELINA Ceftriaxone Sodium 1 g/ Sodium 100 mls @ 200 mls/hr 07/12/18 08:00 07/18/18 10:00 Chloride IV Infused Q24H SELINA Infusion Sodium Chloride 500 mls @ 500 mls/hr 07/12/18 21:35 07/12/18 22:45 Normal Saline IV 07/12/18 22:34 Infused .Q1H ONE Infusion Heparin Sodium (Porcine) 20,000 unit in 500 mls @ 0 mls/hr 07/17/18 17:30 Heparin Drip IV .Q0M SELINA Protocol Per Protocol Heparin Sodium (Porcine) 20,000 unit in 500 mls @ 50 mls/hr 07/17/18 17:48 17:54 Heparin Drip IV Infused .Q10H SELINA Titration Protocol Magnesium Hydroxide 30 ml 07/13/18 09:00 07/20/18 09:07 Mom PO Not Given DAILY SELINA Pharmacy Consult each 07/14/18 13:03 Pharmacy Consult - Fall Risk 07/14/18 13:04 ONE TIME ONE Potassium Chloride 40 meq 07/14/18 12:14 07/20/18 09:07 K-Dur 20 Meq Tablet PO Not Given BIDWM SELINA Potassium Chloride 20 meq 07/16/18 08:12 07/16/18 11:52 K-Dur 20 Meq Tablet PO 07/16/18 08:13 20 meq O ONE Administration Prednisone 40 mg 07/16/18 11:00 07/20/18 11:00 Deltasone 20 Mg PO 07/20/18 23:59 40 mg WB SELINA Administration Senna/Docusate Sodium 1 tab 07/12/18 10:21 Senna Plus Tablet PO BID PRN Constipation Senna/Docusate Sodium 2 tab 07/15/18 21:00 07/20/18 09:07 Senna Plus Tablet PO Not Given BID SELINA - Constitutional no acute distress, obese, cooperative - Routine HEENT Exam Head: Present: normocephalic, atraumatic Eye: Present: EOMI, PERRL ENT: Present: mucous membranes moist, mucous membranes dry - Routine Neck Exam Present: supple, full ROM, trachea midline - Routine Respiratory Exam Present: decreased breath sounds, crackles. Absent: accessory muscle use, patient mechanically ventilated Comments: crackles bases - Routine Cardiovascular Exam Present: RRR, S1, S2, no murmur - Routine Abdominal Exam Present: soft, normoactive bowel sounds - Routine Extremities Exam Present: no edema, full ROM. Absent: cyanosis, clubbing - Routine Back/Spine/Pelvis Exam Back/Spine: Present: full ROM - Routine Skin Exam Present: intact, dry - Routine Neurological Exam Present: alert, oriented X3, CN II-XII intact - Routine Psychiatric Exam Present: normal affect, normal thought process - Urinary Catheter Management Urethral Cath placed during this visit: yes, but has since been removed by the nurse Urethral indwelling: No Insertion date: 07/12/18 Insertion time: 11:06 Removal date: 07/20/18 Removal time: 15:00 Results - Laboratory Findings Laboratory: Laboratory Results - last 48 hr 07/16/18 07/21/18 07/21/18 03:45 03:48 03:48 WBC 7.7 RBC 2.58 L Hgb 7.7 L Hct 21.7 L MCV 84.1 MCH 29.8 MCHC 35.5 RDW Std Deviation 56.8 H Plt Count 154 MPV 10.3 Immature Gran % (Auto) 0.5 Neut % (Auto) 74.7 H Lymph % (Auto) 20.4 L [place] % (Auto) 3.9 Eos % (Auto) 0.5 Baso % (Auto) 0.0 Neut # (Auto) 5.7 Lymph # (Auto) 1.6 [place] # (Auto) 0.3 Eos # (Auto) 0.0 Baso # (Auto) 0.0 Abs Immat Gran (auto) 0.04 H Hemoglobin A1 97.3 Hemoglobin A2 2.7 Hemoglobin F () <2.0 Turbidity < 20 Sodium 142 Potassium 4.2 Chloride 95 L Carbon Dioxide 40 H Anion Gap 7 BUN 12.0 Creatinine 0.6 L Estimated Creat Clear 144 GFR Calculation 105 BUN/Creatinine Ratio 20 Glucose 115 H Calculated Osmolality 274 Calcium 8.5 Icterus Index < 2 Specimen Hemolysis < 15 07/22/18 07/22/18 04:03 04:03 WBC 7.9 RBC 3.00 L Hgb 8.4 L Hct 25.8 L D MCV 86.0 MCH 28.0 MCHC 32.6 RDW Std Deviation 65.0 H Plt Count 175 MPV 10.9 Immature Gran % (Auto) 0.5 Neut % (Auto) 73.1 H Lymph % (Auto) 21.5 L [place] % (Auto) 2.8 Eos % (Auto) 2.0 Baso % (Auto) 0.1 Neut # (Auto) 5.8 Lymph # (Auto) 1.7 [place] # (Auto) 0.2 Eos # (Auto) 0.2 Baso # (Auto) 0.0 Abs Immat Gran (auto) 0.04 H Hemoglobin A1 Hemoglobin A2 Hemoglobin F () Turbidity < 20 Sodium 140 Potassium 4.2 Chloride 96 L Carbon Dioxide 37 H Anion Gap 7 BUN 11.0 Creatinine 0.8 D Estimated Creat Clear 106 GFR Calculation 75 BUN/Creatinine Ratio 14 Glucose 119 H Calculated Osmolality 269 Calcium 8.9 Icterus Index < 2 Specimen Hemolysis < 15 - Diagnostic Findings Chest x-ray: image reviewed (Improving basilar infiltrates, otherwise stable) Assessment and Plan (1) Acute respiratory failure with hypoxia Status: Acute Assessment and plan: Currently on O2 at 3L per [place], no O2 at home. On BT's with A/A QID, pulmicort BID and s/p prednisone 40mg x 5 days. No wheezing and overall doing better. Used O2 last noc and not the bipap. Receiving lasix BID, good UOP, cont to follow. Will continue on O2 at home along with A/A QID. Current Visit: Yes (2) Mycoplasma pneumonia Status: Acute Assessment and plan: s/p abx, CXR improving Current Visit: Yes (3) Pulmonary embolism Status: Acute Assessment and plan: s/p heparin, now on xarelto, will need oral anticoagulation x 3 months. PA pressures 26 and no RV strain noted on 07/14 2D echo. Current Visit: Yes - Time Spent With Patient Total time spent is greater than 50% in coordination of care (as documented) at patient's floor/unit and/or counseling patient: less than 15 minutes
== END 2018-07-22 14:46 | disposition home health service (06) | DRG 871 ==
LOC: ED 07:20 → EDHOLD 09:01 → SUATTDRO 09:01 → CCU 09:45 → MED 07-14 16:58
PROVIDERS: ADMIT Internal Medicine; ATTEND Hospitalist